=== PATIENT | male | born 1950 | race Hispanic/Latino ===

== ENCOUNTER 2017-01-02 10:09 | Emergency (ER) | payer MEDICARE, MEDICAID ==
--- NOTE | 2017-01-02 12:59 | RAD ---
SUPINE AP ABDOMINAL RADIOGRAPH: DATE: 01/02/17. HISTORY: Evaluate gastrostomy tube placement. FINDINGS: Contrast was injected through the gastrostomy tube and a portable AP abdominal image was obtained. A gastrostomy tube is noted in place. There is contrast seen within the fundus of the stomach with co ntrast seen superior to the level of the stomach probably related to a small amount of contrast in th e distal esophagus. No extravasation of contrast is visualized. The bowel gas pattern is overall no nspecific. There is a suggestion of a compression fracture involving the L2 vertebral body. Degener ative changes are seen in the lumbar spine. IMPRESSION: 1. Findings suggestive of a compression fracture of the L2 vertebral body. However, this is not wel l evaluated on the frontal projection. Views of the lumbar spine may be helpful for further evaluati on. 2. Gastrostomy tube noted in place with contrast seen in the stomach. No extravasation of contrast is visualized. There is a small amount of contrast in the distal esophagus. POS: [facility]
== END 2017-01-02 11:24 | disposition home or self-care (01) ==
LOC: ERS 10:09
DX: K94.23 Gastrostomy malfunction (principal); I10 Essential (primary) hypertension; F41.9 Anxiety disorder, unspecified; K74.60 Unspecified cirrhosis of liver; F17.210 Nicotine dependence, cigarettes, uncomplicated
CPT/HCPCS: 43760; 74000; B4087

== ENCOUNTER 2017-11-07 09:05 | Day surgery (SDC) | payer MEDICARE, MEDICAID ==
[2017-11-04 10:24] VITALS: BMI 24.1
[2017-11-07] MEDS ORDERED: PROPOFOL 200 MG/20 ML VIAL ONE (11:53)
[2017-11-07] MEDS ORDERED: Lidocaine 1% PF 5 ML VIAL ONE (11:53)
[2017-11-07] MEDS ORDERED: Ondansetron HCl/PF 4 MG/2 ML Vial ONE ×2 (11:53→13:06)
[2017-11-07] MEDS ORDERED: Triamcinolone 40 MG/ML VIAL ONE (12:02)
[2017-11-07] MEDS ORDERED: Midazolam HCl 2 mg/2 ml Vial ONE (12:15)
[2017-11-07] MEDS ORDERED: Sodium Chloride 0.9% 10 ML ONE (12:21)
[2017-11-07] MEDS ORDERED: Promethazine HCl 25 MG/ML VIAL ONE (13:35)
--- NOTE | 2017-11-07 14:00 | OP ---
DATE OF PROCEDURE: 11/07/2017 SURGEON: Dr. Darrius Grimm PROCEDURE: Esophagogastroduodenoscopy with balloon dilation of an esophageal stricture and submucosa l injection of steroid. PREOPERATIVE DIAGNOSIS: Esophageal stricture and dysphagia. OPERATIVE NOTE: Informed consent was obtained. The patient was sedated with total intravenous anest hesia. A bite block was placed. Of note, when he bent down on the bite block, an extremely loose an d rotten front tooth fell out with that. This was removed from his mouth. The endoscope was then pl aced into the distal esophagus where a very tight esophageal stricture was encountered. This had a b enign smooth appearance, but was only a millimeter or 2 in diameter. Triamcinolone, a total of 40 mg were injected 10 mg per quadrant for 4 quadrants around the stricture submucosally. The stricture w as then dilated with a balloon dilator to 12 mm and then 13.5 mm. There were appropriate deep tears with the dilation. The endoscope still could not renard the balloon through the stricture even after the dilation to 13.5 mm. The endoscope could not be passed through to the stomach. The gastrostomy tube was noted to be in place and was supple and left alone today. IMPRESSION: 1. Tight esophageal stricture dilated to 13.5 mm, which was still too tight to pass the scope throug h even after dilation. 2. Triamcinolone, a total of 40 mg were injected submucosally at the stricture site with 10 mg per q uadrant for 4 quadrants. 3. Otherwise normal proximal esophagus. The stricture was present at 35 cm. RECOMMENDATIONS: Repeat EGD in 2 weeks with balloon dilation of the stricture and again with steroid submucosal injection. The goal will be to try to get the stricture up to 15 mm at that time and com plete the exam of the stomach and duodenum and hopefully will be able to maintain patency of the stri cture with steroid injection. Again, he will need to continue proton pump inhibitor and again is adv ised to stop smoking.
[2017-11-07] MEDS ORDERED: Lidocaine 1% (PF) 30 ML VIAL ONE (14:23)
== END 2017-11-07 14:45 | disposition home or self-care (01) ==
LOC: SDC 09:05
PROVIDERS: ATTEND Internal Medicine Gastroenterology
PROC: 0D758ZZ Dilation of Esophagus, Via Natural or Artificial Opening Endoscopic (ICD-10-PCS; principal; 2017-11-07)
PROC: 3E0G8GC Introduction of Other Therapeutic Substance into Upper GI, Via Natural or Artificial Opening Endoscopic (ICD-10-PCS; 2017-11-07)
DX: K22.2 Esophageal obstruction (principal); R13.10 Dysphagia, unspecified; F17.210 Nicotine dependence, cigarettes, uncomplicated; Z79.899 Other long term (current) drug therapy; Z93.1 Gastrostomy status
CPT/HCPCS: 96374; J1644; J2001; J2250; J2405; J2550; J2704; J3301

== ENCOUNTER 2017-11-15 10:15 | Emergency (ER) | payer MEDICARE, MEDICAID ==
[2017-11-15 11:30] LABS: ALT (SGPT) 27 U/L (8-55); AST (SGOT) 39 U/L (5-34); Albumin 3.6 g/dL (3.4-4.8); Alkaline Phosphatase 128 U/L (40-150); Anion Gap 14 mmol/L (10-20); BUN (Urea Nitrogen) 39 mg/dL (8.4-25.7); Bilirubin, Total 0.4 mg/dL (0.2-1.2); Calc. Creatinine Clearance 0 mL/min (70-130); Calcium 9.3 mg/dL (7.8-10.44); Carbon Dioxide 34 mmol/L (23-31); Chloride 91 mmol/L (98-107); Estimated GFR-MDRD 52; Globulin 4.1 g/dL (2.4-3.5); Glucose 124 mg/dL (80-115); Protein, Total 7.7 g/dL (5.8-8.1); Sodium 136 mmol/L (136-145)
[2017-11-15 11:35] LABS: CKMB 2.5 ng/mL (0-6.6); Troponin I 0.022 ng/mL (< 0.028)
[2017-11-15 11:38] LABS: Potassium 2.9 mmol/L (3.5-5.1)
[2017-11-15 11:53] LABS: Band 23 % (5-11); Hemoglobin 13.9 g/dL (14.0-18.0); Lymphocytes 7 % (21-51); MDiff Complete? YES; Macrocytosis SLIGHT = 6-15 cells (100X) (0-5/hpf); Mean Corpuscular HGB CONC 33.6 g/dL (32.0-36.0); Mean Corpuscular Hemoglobin 33.5 pg (27.0-31.0); Mean Corpuscular Volume 99.8 fL (78.0-98.0); Mean Platelet Volume 9.3 fL (7.4-10.4); Monocytes 9 % (0-10); Neutrophil 60 % (42-75); Platelet Count 198 thou/uL (130-400); RBC Distribution Width 11.7 % (11.5-14.5); Reactive Lymphocytes 1 % (0-10); Red Blood Cell (RBC) Count 4.15 mill/uL (4.70-6.10); White Blood Cell (WBC) Count 9.6 thou/uL (4.8-10.8)
[2017-11-15] MEDS ORDERED: Potassium Chloride 20 MEQ TAB ONE (11:54)
[2017-11-15] MEDS ORDERED: Potassium Chloride 20 MEQ/100 ML PREMIX BAG ONE (11:54)
--- NOTE | 2017-11-15 12:41 | RAD ---
PORTABLE CHEST: HISTORY: Chest pain. COMPARISON: 04/19/2015 FINDINGS: Heart size and mediastinum are within normal limits. The lungs are clear of any infiltrative process . No acute bony findings. IMPRESSION: No active intrathoracic disease. POS: [facility]
[2017-11-15 14:23] LABS: Bilirubin Small (Negative); Blood, Urine Negative (Negative); Clarity CLEAR (Clear); Glucose, Urine (Dipstick) Negative (Negative); Leukocyte Trace (Negative); Nitrite Negative (Negative); Protein, Urine (Dipstick) 30 mg/dL (Neg-Trace); Specific Gravity, Urine 1.016 (1.002-1.036); pH, Urine 6.5 (5.0-9.0)
[2017-11-15 14:25] LABS: Bacteria/HPF None Seen HPF (None Seen); Pathc Cast-AUWi Flag 1.45 (0-2.49); Squamous Epithelial 0-3 HPF (0-3); WBC/HPF 0-3 HPF (0-3)
[2017-11-15 14:37] LABS: Hyaline Casts/LPF 4-6 HYALINE CAST LPF (0-3 Hyaline)
[2017-11-15 14:38] LABS: Transitional Epithelial NONE SEEN HPF (0-3)
== END 2017-11-15 16:00 | disposition home or self-care (01) ==
LOC: ERS 10:15
DX: K22.2 Esophageal obstruction (principal); R07.9 Chest pain, unspecified; R47.02 Dysphasia; I10 Essential (primary) hypertension; F41.9 Anxiety disorder, unspecified; F17.210 Nicotine dependence, cigarettes, uncomplicated; Z79.899 Other long term (current) drug therapy
CPT/HCPCS: 36415; 51701; 71045; 80053; 81003; 81015; 82553; 83735; 84484; 85025; 93005; 96361; 96365; 96366; J3480

== ENCOUNTER 2017-11-22 11:30 | Day surgery (SDC) | payer MEDICARE, MEDICAID ==
[2017-11-22] MEDS ORDERED: Triamcinolone 40 MG/ML VIAL ONE (13:16)
[2017-11-22] MEDS ORDERED: Promethazine HCl 25 MG/ML VIAL ONE (15:06)
[2017-11-22] MEDS ORDERED: Morphine 2 MG/ML SYRINGE ONE (15:20)
[2017-11-22] MEDS ORDERED: hydrALAZINE 20 MG/ML VIAL ONE (15:55)
[2017-11-22] MEDS ORDERED: Lidocaine 1% PF 5 ML VIAL ONE (16:20)
[2017-11-22] MEDS ORDERED: Ondansetron HCl/PF 4 MG/2 ML Vial ONE (16:20)
[2017-11-22] MEDS ORDERED: PROPOFOL 200 MG/20 ML VIAL ONE (16:20)
--- NOTE | 2017-11-22 21:10 | OP ---
DATE OF PROCEDURE: 11/22/2017 PROCEDURE: Esophagogastroduodenoscopy with biopsy, esophageal balloon dilation of esophageal strictu re, submucosal injection of steroid into the esophagus, and gastrostomy tube replacement. PREOPERATIVE DIAGNOSES: Dysphagia and esophageal stricture. OPERATIVE NOTE: Informed consent was obtained from the patient. He was sedated with total intraveno us anesthesia. The bite block was placed and the endoscope was advanced down to the second portion o f the duodenum without difficulty and retroflexion was performed in the stomach. The esophagus was m ore wide open compared to the previous procedure. The endoscope could be passed all the way through to the stomach without having to dilate the stricture. The esophagus was diffusely ulcerated and str ictured throughout the distal two-thirds of the esophagus. Biopsies were obtained. The esophagus ag ain was injected with 40 mL of triamcinolone in four different quadrants. The esophagus was dilated to 15 mm with a balloon dilator. Appropriate shallow tear was noted at the dilation site; however, t he esophagus really was only minimally dilated with the balloon. It was much more open than with pre vious exams. The stomach did have some slight food residue and a little bit of fluid in it, which wa s suctioned out. The old gastrostomy bumper was noted to be in place. The pylorus and first and sec ond portions were unremarkable except there was again some mild food residue in the first portion of the duodenum. The old gastrostomy balloon was deflated with a syringe. The balloon incompletely def lated and with the assistance of the scope, the rest of the fluid could be advanced, and it was then fully deflated. The old tube was removed and a new gastrostomy tube was placed through the old tube and the balloon inflated with 20 mL of sterile water. The external bumper was loosely placed. The s tomach was otherwise unremarkable. IMPRESSION: 1. Diffuse esophageal ulceration and stricturing, biopsied. This is of the distal two-thirds of the esophagus. The esophagus was much more open actually than with the previous procedure. The esophag us again was injected with steroids and dilated with a 15-mm balloon. 2. The stomach had some mild fluid and food residue. This is likely related to motility disorder wi th his stomach. He also had some food residue in the duodenum. He was noted to have a previous jossy luis-emptying scan that showed 78% emptying at 4 hours, which was delayed. RECOMMENDATIONS: 1. Continue Nexium 40 mg twice daily. 2. Follow up in GI clinic in 2 weeks. 3. Consider restarting the Reglan at this point. We will need to review his history regarding this to make sure he did not have any significant side effects with the Reglan. 4. Continue to await histopathology.
== END 2017-11-22 17:32 | disposition home or self-care (01) ==
LOC: SDC 11:30
PROVIDERS: ATTEND Internal Medicine Gastroenterology
PROC: 0D758ZZ Dilation of Esophagus, Via Natural or Artificial Opening Endoscopic (ICD-10-PCS; principal; 2017-11-22)
PROC: 3E0G8GC Introduction of Other Therapeutic Substance into Upper GI, Via Natural or Artificial Opening Endoscopic (ICD-10-PCS; 2017-11-22)
PROC: 0DH63UZ Insertion of Feeding Device into Stomach, Percutaneous Approach (ICD-10-PCS; 2017-11-22)
PROC: 0DB58ZX Excision of Esophagus, Via Natural or Artificial Opening Endoscopic, Diagnostic (ICD-10-PCS; 2017-11-22)
DX: K22.10 Ulcer of esophagus without bleeding (principal); K22.2 Esophageal obstruction; F17.210 Nicotine dependence, cigarettes, uncomplicated; Z79.899 Other long term (current) drug therapy
CPT/HCPCS: 88305; 88312; 88313; 96374; 96375; B4087; J0360; J2001; J2270; J2405; J2550; J2704; J3301

== ENCOUNTER 2018-01-04 12:11 | Day surgery (SDC) | payer MEDICARE, MEDICAID ==
[~2018-01-04 12:11] MED LIST: Lidocaine 1% PF 5 ML VIAL ONE; PROPOFOL 200 MG/20 ML VIAL ONE
[2018-01-04] MEDS ORDERED: Midazolam HCl 2 mg/2 ml Vial ONE (14:13)
[2018-01-04] MEDS ORDERED: Ondansetron PF 4 MG/2 ML Vial ONE (15:59)
[2018-01-04] MEDS ORDERED: Piperacillin/Tazobactam 3.375 GM in Sodium Chloride 0.9% 100 ML IVPB SCH (16:00)
[2018-01-04] MEDS ORDERED: Iopamidol 370 76% 50 ML VIAL FS ONE (16:47)
[2018-01-04 16:54] LABS: #Eosinphils 0.1 thou/uL (0.0-0.7); #Lymphocytes 1.6 thou/uL (1.20-3.40); #Monocytes 0.4 thou/uL (0.11-0.59); #Neutrophils 5.5 thou/uL (1.40-6.50); %Basophils 0.3 % (0.0-1.0); %Eosinophils 0.9 % (0.0-10.0); %Lymphocytes 20.8 % (21.0-51.0); %Monocytes 5.6 % (0.0-10.0); %Neutrophils 72.5 % (42.0-75.0); Hemoglobin 14.6 g/dL (14.0-18.0); Mean Corpuscular HGB CONC 34.2 g/dL (32.0-36.0); Mean Corpuscular Hemoglobin 34.4 pg (27.0-31.0); Mean Platelet Volume 9.1 fL (7.4-10.4); Platelet Count 225 thou/uL (130-400); RBC Distribution Width 12.2 % (11.5-14.5); Red Blood Cell (RBC) Count 4.24 mill/uL (4.70-6.10); White Blood Cell (WBC) Count 7.6 thou/uL (4.8-10.8)
[2018-01-04 17:01] LABS: PTT 31.2 SEC (22.9-36.1); Prothrombin Time 13.4 SEC (12.0-14.7)
--- NOTE | 2018-01-04 17:01 | CT ---
CT OF CHEST PERFORMED WITHOUT CONTRAST ENHANCEMENT: 01/04/18 HISTORY: Patient is status post EGD. There is concern for an esophageal perforation. Dr. Grimm placed a clip a t the area of concern. The lungs show biapical parenchymal scar. The lungs are otherwise clear of any infiltrative process. Some emphysematous type change is seen. Some parenchymal scarring in the lingula. No pulmonary nodule s or pleural effusions. The thoracic aorta shows atherosclerotic change. There are coronary calcifications. Patient was given some nonionic contrast to ingest and this does show oral contrast within the distal esophagus, the wall of which is thickened, but there is no signs of extravasation or contrast. There is no evidence of mediastinal air. Gastrostomy tube is present. The visualized liver parenchyma appe ars unremarkable. Right and left adrenal glands are normal in appearance. IMPRESSION: Thickened somewhat irregular appearance to the distal esophageal wall. I do not see any signs that wo uld suggest perforation. There is no mediastinal air. The findings were discussed with Dr. Grimm. POS: [facility]
[2018-01-04 17:10] LABS: ALT (SGPT) 12 U/L (8-55); AST (SGOT) 20 U/L (5-34); Albumin 4.2 g/dL (3.4-4.8); Alkaline Phosphatase 92 U/L (40-150); Anion Gap 17 mmol/L (10-20); BUN (Urea Nitrogen) 12 mg/dL (8.4-25.7); Bilirubin, Total 0.5 mg/dL (0.2-1.2); Calc. Creatinine Clearance 0 mL/min (70-130); Calcium 9.6 mg/dL (7.8-10.44); Carbon Dioxide 25 mmol/L (23-31); Chloride 101 mmol/L (98-107); Estimated GFR-MDRD Greater than 90; Globulin 3.8 g/dL (2.4-3.5); Glucose 116 mg/dL (80-115); Potassium 3.6 mmol/L (3.5-5.1); Sodium 139 mmol/L (136-145)
[2018-01-04] MEDS ORDERED: hydrALAZINE 20 MG/ML VIAL ONE (17:40)
--- NOTE | 2018-01-05 00:27 | OP ---
DATE OF PROCEDURE: 01/04/2018 PROCEDURE PERFORMED: Esophagogastroduodenoscopy with balloon dilation of esophageal stricture. PREOPERATIVE DIAGNOSIS: Continued dysphagia. INDICATIONS: He has to spit his saliva out throughout the day. He has been taking the Nexium twice daily through his gastrostomy tube. He was started on Reglan about a week ago, and he has not noticed significant improvement since starting this medication. He underwent esophageal dilation with injection of steroid to the dilation site on 11/07/2017, and then followup dilation on 11/22/2017 again with injection of steroid. The initial dilation was to 13.5 mm. The subsequent dilation was to 15 mm with a balloon dilator. Followup endoscopy for the chronic stricture was performed today. DESCRIPTION OF PROCEDURE: Informed consent was obtained from the patient. He was sedated with total intravenous anesthesia. A bite block was placed and the endoscope was advanced to the distal esophagus, where again a very tight esophageal stricture was encountered, this had tightened up significantly from the previous exam. A balloon dilator was placed through the stricture and dilated to 12 mm. There was shallow mucosal tear with dilation. Dilation was performed at 13.5 mm. Deeper mucosal tear was seen. In one segment, there was more muscular tear with a possible hole in the distal esophagus concerning for a small perforation. The endoscope was advanced to the stomach, which appeared normal including retroflexed views. The bumper from the gastrostomy tube was noted be in place. The pylorus and first and second portions of the duodenum were unremarkable. IMPRESSION: 1. Tight distal esophageal stricture dilated to 13.5 mm with a balloon dilator. There was a deep tear at one point within the dilation site with a possible small hole identified. A clip was placed over this defect, however, there was poor gripping of the chronically scarred tissue in this area, and I would expect that if there is an actual perforation, that this would not be adequate for treatment. 2. Otherwise normal EGD with gastrostomy tube noted to be in place in the body of the stomach. RECOMMENDATIONS: 1. We will request a gastrografin swallow. If a perforation is confirmed, then he will be started on antibiotics and transferred to a facility where thoracic surgery support for this complication is available. 2. If there is no perforation, then we will continue with medical therapy with proton pump inhibitor twice daily and continue trial of metoclopramide for the gastroparesis. Job ID: [id number]
--- NOTE | 2018-01-05 01:20 | HP ---
CHIEF COMPLAINT: Trouble swallowing. HISTORY OF PRESENT ILLNESS: Mr. Zarate is a 67-year-old man, who underwent upper endoscopy today for chronic esophageal stricture. I dilated a tight distal esophageal stricture to 13.5 mm with the balloon dilator. There was concern for a defect at the dilation site for possible perforation. The patient did have some chest pain and vomiting after the procedure. A CT scan of the chest was performed and he did swallow contrast with that. The contrast went on through the esophagus to the stomach. The CT scan showed no signs of perforation and no free air. Given the concern still for risk for perforation, he is being placed on observation status. He has had a chronic esophageal stricture. I first started seeing him back in 2011, at which point he had presented to the hospital with nausea and vomiting and history of esophageal stricture dilated elsewhere. I performed an endoscopy that showed again a tight esophageal stricture that was too tight to pass the endoscope through along with severe erosive esophagitis. He subsequently underwent monthly dilations after that over the years and we were able to dilate up to 15 mm with balloon, however, the stricture would typically tighten right back down to 2 mm opening. He has undergone at least 27 upper endoscopies with dilations and sometimes with biopsies at this institution between 2011 and now. He has undergone gastric emptying scan previously that showed reduced gastric emptying time at 78%, emptying at 4 hours. He was given a trial of Reglan in the past, however, it is unsure if this has helped or not. He ultimately underwent PEG tube placement in July of 2012 and he has maintained the gastrostomy tube since then for his primary source for nutrition. He was not seen by us between November 2016 up until end of October of 2017, at which point he again presented with similar ongoing symptoms. He underwent endoscopy on November 07 with balloon dilation and steroid injection to the stricture. This was repeated on November 22, 2017 with balloon dilation and steroid injection to the stricture. He was started on metoclopramide again a week ago without obvious help since then. He has continued on Nexium granules twice daily through his gastrostomy tube. He has been encouraged to quit smoking in the past due to the nonhealing chronic fibrotic stricture, but he has continued to smoke. He has lost 5 pounds over the last month. He continually has to spit out the saliva and will fill up a trash can full of saliva over several hours at home. PAST MEDICAL HISTORY: 1. Chronic esophageal stricture. 2. Gastroparesis. 3. History of hepatitis C antibody positive, however, the RNA level is negative and this confirms that he does not have chronic hepatitis C. He has had no signs of cirrhosis otherwise. 4. Chronic opioid dependence. PAST SURGICAL HISTORY: He has had numerous upper endoscopies. He had colonoscopy back in July of 2011, which revealed a tubulovillous adenoma. I do not believe he has had a surveillance colonoscopy since then. He has had knee surgery and ankle surgery. FAMILY HISTORY: Negative for GI malignancy. SOCIAL HISTORY: Continues to smoke. He quit drinking a few years ago. He has a past history of heroin use, but not recently. ALLERGIES: NO KNOWN DRUG ALLERGIES. MEDICATIONS: Include; 1. Nexium 40 mg once packet twice daily per G-tube. 2. Metoclopramide 5 mg liquid per tube before meals and at bedtime four times daily. 3. Alprazolam 1.5 mg twice daily. 4. Mirtazapine 45 mg daily. 5. Ambien 5 mg nightly. 6. Suboxone 8-2 mg two times daily. 7. Amlodipine with valsartan 10-320 mg one tablet daily. REVIEW OF SYSTEMS: Negative x10 systems reviewed except as stated in the history of present illness. PHYSICAL EXAMINATION: VITAL SIGNS: His blood pressures run as high as in the 190s. GENERAL: He is in no acute distress. He does spit out his saliva. He is awake and responsive. HEENT: His eyes have no scleral icterus. Oropharynx has poor dentition. No cervical or supraclavicular lymphadenopathy. LUNGS: Clear to auscultation bilaterally. HEART: Regular rate and rhythm without murmur. ABDOMEN: Soft, nontender, and nondistended. Bowel sounds are present. EXTREMITIES: No lower extremity edema. NEUROLOGIC: Cranial nerves are grossly intact. IMPRESSION: 1. Chronic fibrotic distal esophageal stricture. Repeated biopsies have been benign. Balloon dilation today was performed at 13.5 mm. Previously just one month ago, we were able to dilate to 15 mm, however, dilation today to the smaller size shows a concerning deep tear and he is being monitoring for perforation. CT scan of the chest with swallowed contrast shows no evidence of perforation. 2. Idiopathic gastroparesis exacerbated by opioids. 3. Tobacco abuse. 4. Chronic malnutrition with symptoms questionable compliance with his gastrostomy tube feeds. His most recent albumin back in November was actually normal. 5. History of tubulovillous adenoma, removed in 2011. RECOMMENDATIONS: 1. Given that the CT scan showed no perforation, we will monitor him for a while longer in day stay. If he continues to have discomfort in his chest or trouble swallowing or other signs of complications, we will followthrough with admission and place him on empiric antibiotics and monitor for further complications. 2. If he improves over the next little while, then he could potentially be discharged home and continue with the proton-pump inhibitor twice daily per gastrostomy tube and continue metoclopramide 5 mg four times daily before meals and at bedtime. 3. We will check his labs today including renal function and liver tests, albumin, white blood cell count and hemoglobin. 4. He will eventually need to undergo surveillance colonoscopy, however, this could be done as an outpatient in the future with subsequent followup endoscopies. If he does not have a surgical complication with today's procedure, he will still require serial dilations to the stricture. Job ID: [id number]
== END 2018-01-04 18:48 | disposition home or self-care (01) ==
LOC: SDC 12:11
PROVIDERS: ATTEND Internal Medicine Gastroenterology
PROC: 0D758ZZ Dilation of Esophagus, Via Natural or Artificial Opening Endoscopic (ICD-10-PCS; principal; 2018-01-04)
DX: K22.2 Esophageal obstruction (principal); K22.8 Other specified diseases of esophagus; K31.84 Gastroparesis; Z93.1 Gastrostomy status; F17.200 Nicotine dependence, unspecified, uncomplicated; E46 Unspecified protein-calorie malnutrition; Z87.19 Personal history of other diseases of the digestive system; Z98.890 Other specified postprocedural states
CPT/HCPCS: 36415; 71250; 80053; 85025; 85610; 85730; 96374; 96375; J0360; J2001; J2250; J2405; J2543; J2704; J7050

== ENCOUNTER 2018-03-10 09:51 | Inpatient (IN) | payer MEDICAID, MEDICARE ==
--- NOTE | 2018-03-10 11:11 | RAD ---
CHEST 1 VIEW: HISTORY: Pneumonia. COMPARISON: CT From 01/04/2018. FINDINGS: Cardiac silhouette and pulmonary vasculature are unremarkable. Mediastinum is midline. No confluent airspace consolidation. Lung apices are incompletely imaged. IMPRESSION: No active cardiopulmonary abnormalities are demonstrated. POS: [facility]
[2018-03-10 11:21] LABS: #Lymphocytes 1.2 thou/uL (1.20-3.40); #Monocytes 1.1 thou/uL (0.11-0.59); #Neutrophils 7.7 thou/uL (1.40-6.50); %Basophils 0.1 % (0.0-1.0); %Eosinophils 0.2 % (0.0-10.0); %Lymphocytes 11.8 % (21.0-51.0); %Monocytes 10.7 % (0.0-10.0); %Neutrophils 77.2 % (42.0-75.0); Hemoglobin 14.9 g/dL (14.0-18.0); Mean Corpuscular HGB CONC 31.8 g/dL (32.0-36.0); Mean Corpuscular Hemoglobin 32.3 pg (27.0-31.0); Mean Platelet Volume 7.6 fL (7.4-10.4); Platelet Count 301 thou/uL (130-400); RBC Distribution Width 12.6 % (11.5-14.5); Red Blood Cell (RBC) Count 4.62 mill/uL (4.70-6.10)
[2018-03-10 11:48] LABS: AST (SGOT) 21 U/L (5-34); Albumin 3.6 g/dL (3.4-4.8); Alkaline Phosphatase 72 U/L (40-150); Anion Gap 17 mmol/L (10-20); BUN (Urea Nitrogen) 23 mg/dL (8.4-25.7); Bilirubin, Total 0.6 mg/dL (0.2-1.2); Calc. Creatinine Clearance 0 mL/min (70-130); Calcium 9.1 mg/dL (7.8-10.44); Carbon Dioxide 20 mmol/L (23-31); Chloride 103 mmol/L (98-107); Estimated GFR-MDRD 67; Globulin 3.4 g/dL (2.4-3.5); Glucose 112 mg/dL (80-115); Sodium 137 mmol/L (136-145)
[2018-03-10 12:04] LABS: ALT (SGPT) 9 U/L (8-55); CK (CPK) 55 U/L (30-200); Lipase 18 U/L (8-78)
[2018-03-10 12:10] LABS: CKMB 5.4 ng/mL (0-6.6)
--- NOTE | 2018-03-10 13:33 | CT ---
ABDOMEN AND PELVIC CT WITH IV CONTRAST: COMPARISON: 06/23/2011. CLINICAL HISTORY: Failure to thrive. Abdominal pain. FINDINGS: There is abnormal interstitial reticulonodular opacification of the lung bases, left greater than rig ht. Gastrostomy is present from a left ventral abdominal percutaneous approach. There is moderate d istention of the gallbladder and slight prominence of the biliary ductal system. No focal hepatic le pablo evident. The spleen is unremarkable. Vascular calcifications are seen within the kidneys bilat erally. Small parenchymal hypoattenuating foci of each kidney are present, too small to definitively characterize. There is asymmetric atrophy of the right kidney. There is a large volume of retained fecal material throughout the colon. Diffuse vascular disease. There is no free air. There is patricia dence of hiatal hernia and mild wall prominence of the imaged distal esophagus. Moderate distention of the unopacified urinary bladder is present. No adrenal mass or peripancreatic inflammation. Ther e is likely chronic end plate deformity of L2. IMPRESSION: 1. Multifocal abnormal bilateral interstitial reticulonodular opacities as well as ground-glass opac ity of the bilateral lung bases. Findings favor an atypical infection. Recommend clinical correlati on as well as radiographic imaging, as followup for continued assessment. 2. Distended gallbladder and prominence of the biliary ductal system. Findings may be further asses sed with dedicated gallbladder ultrasound. 3. Constipation. The bowel is limited in assessment by the presence of enteric contrast. 4. Heterogeneous kidneys with multifocal vascular calcification. There is also atrophy of the right kidney. Correlate for patient's renal function and, as necessary, nephrology followup may be obtain ed. POS: [facility]
[2018-03-10] MEDS ORDERED: ISOVUE-370 76%-LOCM 1 ML ONE (14:50)
--- NOTE | 2018-03-10 15:05 | ULT ---
RIGHT UPPER QUADRANT ULTRASOUND: Date: 03/10/18 INDICATION: Abdominal pain. FINDINGS: The gallbladder is distended. There is echogenic sludge noted within the gallbladder lumen. Gallbladd er wall does not appear significantly thickened or edematous. Common bile duct is dilated, measured at 6.0 mm. There is evidence of intrahepatic ductal dilatation. Liver is heterogeneous. Pancreas is obscured. Right kidney is imaged and appears unremarkable. Technologist describes a negative Albert's sign. IMPRESSION: Distended gallbladder with echogenic sludge. Intra and extrahepatic biliary duct dilatation. Heteroge neous liver. Consider MRCP to further evaluate liver, pancreas, and bile ducts. POS: [facility]
[2018-03-10 17:27] VITALS: BMI 16.2
[2018-03-10 17:33] LABS: CKMB 6.8 ng/mL (0-6.6)
[2018-03-10] MEDS ORDERED: Ondansetron ODT 4 MG TAB SL PRN (19:28)
[2018-03-10] MEDS ORDERED: Acetaminophen 325 MG TAB PO PRN (19:28)
[2018-03-10] MEDS ORDERED: Ondansetron PF 4 MG/2 ML Vial IVP PRN (19:28)
[2018-03-10] MEDS ORDERED: Sodium Chloride 0.9% 1,000 ML IV SCH (19:28)
[2018-03-10] MEDS ORDERED: Lorazepam 2 MG/ML VIAL SLOW IVP PRN (19:38)
[2018-03-11] MEDS ORDERED: Fentanyl 100 MCG/2 ML VIAL SLOW IVP PRN (03:32)
[2018-03-11] MEDS ORDERED: Fentanyl 100 MCG/2 ML VIAL SLOW IVP SCH (03:45)
[2018-03-11] MEDS ORDERED: Pantoprazole 40 MG VIAL IVP SCH (09:00)
--- NOTE | 2018-03-11 10:02 | HP ---
CHIEF COMPLAINT: Abdominal pain. HISTORY: The patient is a 67-year-old male, who has a longstanding severe esophageal stricture. He had a PEG placed for feeding. He was doing well, tolerating up to 4 cans per day until the last month. He states whenever he tries to put any fluid through his PEG tube, it creates severe pain around the PEG tube, so he has not been eating. He has lost 16 pounds. He normally sees Dr. Grimm in GI. He had a small bowel movement yesterday. His last esophageal dilatation was about a month ago. PAST MEDICAL HISTORY: Significant for history of heroin addiction, hepatitis C. PAST SURGICAL HISTORY: He has had foot surgery and PEG surgery. MEDICATIONS: Include Megace, Transderm-Scop, Trulance, metoclopramide, Suboxone, vitamin D, alprazolam, mirtazapine, zolpidem and Chantix. ALLERGIES: HE HAS NO KNOWN DRUG ALLERGIES. SOCIAL HISTORY: He is disabled. He was a heavy smoker. He is down to one cigarette per day. No alcohol. FAMILY HISTORY: Heart disease. PHYSICAL EXAMINATION: VITAL SIGNS: Temperature 99, pulse 103, blood pressure 120/80. GENERAL: He is a cachectic male. He has difficulty speaking because he is regurgitating his saliva. HEENT: Otherwise, unremarkable. No jaundice. LUNGS: Clear. ABDOMEN: He has a PEG in the left upper quadrant. His abdomen is otherwise soft, nondistended, and nontender. Very thin. EXTREMITIES: Extremely thin. LABORATORY DATA: His white count is 10, H and H 14 and 46, platelet count 301. His electrolytes, liver function tests are normal. His potassium low is at 3, CO2 of 20. He had an abdominal CT which showed a distended gallbladder, distended intra and extrahepatic biliary tree, large volume of retained fecal material, hiatal hernia, wall prominence of the distal esophagus. He had an ultrasound that showed again some sludge and biliary dilatation. Negative Albert's sign. ASSESSMENT: Cachexia due to esophageal stricture with pain at PEG site with any use. The gallbladder distention is probably related to starvation. I do not feel that he is a candidate at this time for any kind of laparoscopic cholecystectomy. PLAN: I recommend a tube study to make sure that the PEG tube is positioned properly and GI evaluation. Job ID: [id number]
[2018-03-11] MEDS: Lorazepam 2 MG/ML VIAL SLOW IVP SCH ×3 (10:28→20:59)
[2018-03-11] MEDS: Sodium Chloride 0.9% 1,000 ML IV SCH ×2 (10:29→16:42)
[2018-03-11] MEDS: Nicotine 14 MG PATCH TOP SCH (10:29)
--- NOTE | 2018-03-11 11:28 | MRI ---
MRI OF THE ABDOMEN WITHOUT CONTRAST: Date: 03/11/18 INDICATION: History of abdominal pain, nausea, and vomiting. 16 lb. weight loss. PEG tube placement. COMPARISON: Right upper quadrant ultrasound dated 03/10/18. CT abdomen/pelvis dated 03/10/18. FINDINGS: As seen on the comparison examination, is moderate distention of the gallbladder without intraluminal stones or sludge. There is also intrahepatic and extrahepatic biliary dilatation with the common crys e duct measuring up to 10.6 mm. There is moderate intrahepatic biliary ductal dilatation. No main lozano creatic ductal dilatation is noted. Common bile duct is dilated up to the level of the ampulla. No vi sible intraluminal stones or sludge is evident. No definite overt pancreatic head mass or ampullary m ass is evident; however, an ampullary lesion cannot be entirely excluded. A small amount of debris or tiny stone at the level of the ampulla cannot be entirely excluded. There is no secondary sign to east ggest presence of pancreatitis. No definite focal hepatic lesion is evident. There is a PEG tube cath eter entering into the gastric body. Adrenal glands and kidneys appear within normal limits. There ar e bilateral lower lobe opacities which may reflect pneumonia. This is better seen on the CT examinati on. No veronica free fluid is evident. IMPRESSION: 1. Moderate gallbladder distention with moderate intrahepatic and extrahepatic biliary ductal dilata tion without evidence of visible intraluminal stone. An ampullary lesion or small stone at the level of the ampulla cannot be entirely excluded. Recommend consideration for an ERCP. 2. PEG catheter. 3. Bibasilar patchy opacities suspicious for pneumonia. POS: [facility]
--- NOTE | 2018-03-11 11:36 | RAD ---
KUB: Date: 03/11/18 HISTORY: PEG tube pain. FINDINGS: This shows contrast being injected into a PEG tube. The tube is in the fundus region of the stomach. There is reflux into the distal esophagus. There are no signs of extravasation. IMPRESSION: PEG tube within the fundus region of the stomach. No extravasation. POS: [facility]
--- NOTE | 2018-03-11 16:37 | CON ---
DATE OF CONSULTATION: 03/11/2018 REASON FOR CONSULTATION: Abdominal pain with PEG feeding. HISTORY OF PRESENT ILLNESS: Mr. Zarate is a 67-year-old, who has had chronic issues with esophageal dysphagia and stricturing and gastroparesis, which has been felt to possibly be related to his chronic narcotic pain medicines. He has been seen by Dr. Yung in the past. He has a PEG in place now and apparently the past several weeks he has not been able to eat. He cannot feed through his tube feed. He will feel very full and have to stop feeding. His son estimates that he has lost about 10 pounds. Apparently, he had been at [facility] recently. He had imaging and he was told that maybe he had pneumonia, but he has had no coughing, shortness of breath or fever according to the son. Here, he was evaluated in the emergency room and had several studies on the day of admission. Yesterday, he had a white count of 10, hemoglobin of 14, MCV 102, and platelet count of 301. He had a sodium of 137, potassium of 3, chloride of 103, bicarb of 20, BUN and creatinine of 23 and 1.11. Normal liver function tests. Alkaline phosphatase 72. Lipase of 18. Imaging studies, he had a CAT scan first reported a multifocal reticulonodular opacities and ground-glass changes in the lung base. A distended gallbladder was seen as well as a prominent biliary ductal system, constipation, and atrophy of the right kidney. An ultrasound was performed that showed a dilated gallbladder and intra and extrahepatic ductal dilatation. The duct was 6 mm they said. An MRCP was then performed, which showed moderate gallbladder distention with moderate intra and extrahepatic ductal dilatation without evidence of stones. Radiologist considered about ampullary mass or small stones. Presently, the patient is resting comfortably in bed. The nurses note he has had no distress or vomiting since being admitted. PAST MEDICAL HISTORY: 1. Chronic reflux and stricture. It was felt to be multifactorial and related to the gastroparesis from chronic narcotics and smoking. He has had multiple dilatations in the past. PPI treatment without much benefit. 2. Gastroparesis. This is likely narcotic-induced. 3. History of hepatitis C positive and hep C RNA negative. 4. Chronic opioid dependence. PAST SURGICAL HISTORY: Multiple EGDs and dilatations, PEG tube placed in the past, and colonoscopy with polypectomy in 2012. SOCIAL HISTORY: The patient continues to smoke and does not drink. He uses chronic pain medications. ALLERGIES: NONE KNOWN. MEDICATIONS: 1. Megace. 2. Scopolamine patch. 3. Trulance. 4. Raglan. 5. Suboxone. 6. Vitamin D. 7. Mirtazapine. 8. Zolpidem. 9. Chantix. Medications here, 1. Fentanyl q.4 hours. 2. Ativan. 3. Nicoderm patch. 4. Protonix once a day. 5. Normal saline 125 an hour. PAST SURGERIES: She had a PEG placement. PHYSICAL EXAMINATION: GENERAL: The patient is resting comfortably. He is frail and thin. He does not talk. His son gives all the history. He complains of pain when he eats. VITAL SIGNS: T-max 99.8 to 99, pulse is 103 to 99, and blood pressure 149/83. Reviewing his films, the PEG tube is in adequate position. The stomach, there was no sign of leak on the CAT scan or abscess or infection. The PEG is high up in the stomach. It may be that when there is feeding, it stays the PEG may prevent it from traversing farther. In any event, there is reflux on a recent PEG tube study on today up in the esophagus. There is no evidence of extravasation. The PEG is in the proper place. The CAT scan films and MRIs were reviewed as well. There is mild prominence of the intrahepatic ducts. There is a dilated gallbladder and there is no evidence of biliary obstruction with mass or stones. I have reviewed the patient's abdominal films. He has a J-shaped stomach with the PEG tube in the proximal fundus, which actually is directed upwards at the cardia and GE junction, and this may be the reason he tends to reflux more the feedings, but reviewing his CAT scan, I do not think that a PEG can be placed further down in the antrum due to the shape of the stomach. RECOMMENDATIONS: 1. EGD tomorrow to look for interval abnormalities of the ampulla that would cause the bile duct to be dilated, although I suspect most likely given the Suboxone and effect on the GI tract with probably sphincter of Oddi spasm and compensatory dilatation of the biliary tree. If that is normal, it may be reasonable to get a HIDA scan and make sure it does not cause acalculous cholecystitis as the reason for some of his abdominal pain with eating. 2. We will perform the EGD as well to evaluate the PEG and make sure some of this causing some obstruction. It may need to be removed. Unfortunately, trying to place a PEG into the jejunum with the jejunal extension is fraught with proximal migration and is probably not a viable option. 3. We will increase the Protonix to b.i.d. 4. With low-grade fever and negative imaging studies of the abdomen and findings in the chest, we would consider possibility of chronic aspiration pneumonia. 5. With regard to his debilitated intestinal motility, the Reglan is not going to probably fix everything and it may be reasonable to start him on Movantik or one of the other new receptor blockers if he is going to be on chronic narcotics, although the best thing for this patient would be to get weaned off chronic narcotic medications. His gut will likely not ever function normal while on them. 6. The risks, benefits, and possible complications of endoscopy were explained to the patient's son, and we will proceed with that tomorrow. Job ID: [id number]
[2018-03-11] MEDS: Fentanyl 100 MCG/2 ML VIAL SLOW IVP PRN (16:39)
[2018-03-11] MEDS ORDERED: GASTROGRAFIN 30 ML BOT ONE (16:39)
--- NOTE | 2018-03-11 17:17 | HP ---
CHIEF COMPLAINT: Abdominal pain. HISTORY OF PRESENT ILLNESS: The patient is a 67-year-old male with a long history of esophageal stricture, for which he has had a tube placed. He was doing well until about 2 weeks ago when he began to have pain at the PEG site. He was hurt whenever the PEG site was used, so that he quit feeding himself and over the last 2 weeks, he has lost 16 pounds. He also, when you ask him to show where he is tender, will put his hand up on the right upper quadrant and he is placed in the hospital for further evaluation. His CT scan done at the time of admitting showed gallbladder enlargement and sludge. PAST MEDICAL HISTORY: Significant for heroin addiction, hepatitis C, esophageal stricture, and COPD. He has had cirrhosis and history of hypertension. He has also had ulcers in his throat. He suffers from chronic constipation and generalized anxiety disorder as well as depression and insomnia as well as tobacco dependence. PAST SURGICAL HISTORY: Includes the aforementioned placement of a PEG, multiple dilatations of his esophagus for the stricture, bilateral foot surgery. PSYCHIATRIC HISTORY: Significant for the aforementioned anxiety and depression. SOCIAL HISTORY: He is . Continues to smoke daily. Quit drinking 8 years ago and is a former heroin abuser, who has been on Suboxone and sober for the last 3 years. ALLERGIES: HE HAS NO KNOWN DRUG ALLERGIES. MEDICATIONS: His medications on admission include; 1. Ambien 10 mg at bedtime. 2. Mirtazapine 45 mg daily. 3. Chantix 1 mg b.i.d. 4. Alprazolam 1 mg b.i.d. 5. Trulance 3 mg once a day. 6. Reglan 5 mg q.i.d. 7. Suboxone 8/2 one p.o. daily. REVIEW OF SYSTEMS: GENERAL: He is weak, cachectic, but denies fever or chills. He has had significant weight loss. HEENT: No drainage from eyes, ears, nose, or pharynx. CHEST: Denies shortness of breath or coughing. CARDIOVASCULAR: Denies palpitations or chest pain. GASTROINTESTINAL: Reports abdominal pain and chronic constipation. No nausea, vomiting, or diarrhea. His pain is located at the PEG site and he puts his hand up in the right upper quadrant. GENITOURINARY: Denies blood in urine or stool, or painful urination. MUSCULOSKELETAL: Complains of generalized weakness with muscular atrophy. No swollen joints or redness. SKIN: With poor turgor. No acute rashes or lesions. NEUROLOGICAL: No trouble with confusion or areas of anesthesia or paresthesia. PSYCHIATRIC: Denies emotional lability or hallucinations, but suffers of chronic anxiety and depression. PHYSICAL EXAMINATION: At the time of admission, VITAL SIGNS: Blood pressure is 125/77, pulse 100, respirations 20, temperature 98.6, and O2 saturation 95% on room air. GENERAL: This is a cachectic [place] male, alert and cooperative. HEENT: Temporal wasting and sunken eyes are noted. Atraumatic. Pupils with diminished reactivity to light. Arcus senilis bilaterally. Pharynx dry. NECK: Supple. CHEST: With diminished distant breath sounds. HEART: Regular rate and rhythm. ABDOMEN: Scaphoid and tender at the left upper PEG site as well as in the right upper quadrant Albert's sign. No hepatosplenomegaly or ascites. GENITOURINARY: Deferred. EXTREMITIES: Without clubbing, cyanosis, or edema. Muscular wasting in all four extremities was noted. Range of motion is normal. SKIN: With poor turgor in thinning. NEUROLOGIC: Cranial nerves are intact. Sensory exam is grossly normal. Mental status is clear, so far anxiety. Unable to test gait and cerebral function at this time. LABORATORY DATA: The lab work on admission showed WBCs 10, hemoglobin 14.9, and hematocrit 46.9 with platelets at 301. The sodium is 137, potassium 3.0, chloride 103, CO2 of 20, BUN is 23, and creatinine 1.1. Liver functions unremarkable. CK-MB elevated slightly at 6.8; troponin indeterminate, but elevated. Lipase 18. UA is pending. IMAGING DATA: Chest x-ray unremarkable. CT shows bilateral lower lobe infiltrates and sludge in the gallbladder as well as enlargement of the gallbladder. The sludge was confirmed by ultrasound. ASSESSMENT: 1. Percutaneous endoscopic gastrostomy tube site pain. 2. Probable cholecystitis with cholelithiasis. 3. Bilateral pulmonary nodules, etiology undetermined. 4. Failure to thrive. 5. History of recurrent esophageal stricture. 6. Chronic obstructive pulmonary disease. PLAN: 1. Surgical consultation has been obtained and will put any intervention on the back burner. 2. GI consultation to further assess PEG site placement and function. 3. Pulmonary consultation prior to discharge to evaluate bilateral pulmonary nodules. 4. Gradual supplementation to resume regular diet once pain has been managed and source of pain was resolved. Job ID: [id number]
[2018-03-11] MEDS: Pantoprazole 40 MG VIAL IVP SCH (20:59)
[2018-03-12] MEDS: Sodium Chloride 0.9% 1,000 ML IV SCH ×3 (01:00→16:34)
[2018-03-12] MEDS: Fentanyl 100 MCG/2 ML VIAL SLOW IVP PRN (04:39)
[2018-03-12] MEDS: Pantoprazole 40 MG VIAL IVP SCH ×2 (07:56→20:46)
[2018-03-12] MEDS: Nicotine 14 MG PATCH TOP SCH (07:58)
[2018-03-12] MEDS: Lorazepam 2 MG/ML VIAL SLOW IVP SCH ×3 (07:58→20:47)
[2018-03-12] MEDS ORDERED: KETAMINE 100 MG/ML (5ML VIAL) ONE (09:26)
--- NOTE | 2018-03-12 11:57 | OP ---
DATE OF PROCEDURE: 03/12/2018 PREPROCEDURE DIAGNOSES: 1. History of epigastric pain with every feed and vomiting after feeding. 2. CAT scan showing the balloon on his feeding tube to be very proximal in the stomach. 3. Tube check with fluoroscopy and contrast showed the PEG tube to be in the lumen of the stomach, but the injection of the contrast seems to stand the top of the stomach and goes straight up the esophagus. 4. Chronic narcotic use with chronic constipation. 5. Distended gallbladder, prominent biliary tree, likely related to narcotics and sphincter of Oddi spasm. The patient has normal liver function tests. No evidence of obstruction of the biliary tree. POSTPROCEDURE DIAGNOSES: 1. Stricture in distal esophagus smooth, consistent with a prior history of esophageal stricture from reflux, dilated to passage of scope. 2. The PEG tube balloon is in the proximal stomach and it is pointing right back at the GE junction. This is notable from the second you entered the stomach with the scope. On retroflexion, there was no evidence of paraesophageal hernia or volvulus. With advancing the scope beyond the balloon, the stomach seems to revert to a more normal position and the PEG tube is in the distal part of the body of the stomach almost near the antrum. This led me to believe that possibly the PEG tube bumper being loose let the PEG tube slip into the stomach and let the stomach take a high-riding position, which has probably been the reason for his symptoms in the last two weeks. The PEG tube was then changed and the tape was used to affix the bumper up against the tube so that it cannot migrate into the stomach and let the anterior balloon and PEG in the similar position that they had. 3. Otherwise normal stomach and duodenum. RECOMMENDATIONS: 1. Continue Protonix. 2. Start tube feeds. 3. If the patient continues to have abdominal pain, the stomach has been placed in proper position with respect to the tube feed, it would be reasonable to get a HIDA scan. 4. The patient should be on a bowel regimen since he is on Suboxone regularly as he is on a severe constipation, something like Movantik would be reasonable. If he can't afford that, then MiraLAX and Senokot would be reasonable. ANESTHESIA: TIVA. PROCEDURE IN DETAIL: The patient was informed of the risks, benefits, and possible complications of endoscopy including perforation, reaction to medication, and aspiration. Informed consent was obtained. The patient was brought to the endoscopy suite, where he was sedated in gradual fashion. One he was comfortable, a bite block was placed into his oropharynx. The endoscope was advanced to the esophagus, the distal esophagus. There was a stricture, it was difficult to pass the scope. We were able to dilate the stricture with minimal resistance. On entering the stomach at about 40 cm right away there, you can see the balloon on the placement of PEG tube and the lumen of the PEG tube was pointing straight up at the opening of the esophagus into the stomach. Retroflexed views with no evidence of paraesophageal hernia. There was no twisting of the mucosa. It was difficult to perform as this is a J-shaped stomach or just some type of migration of the PEG tube. The PEG tube was pulled back and the stomach reverted to its normal position. The scope was advanced beyond this and into the pylorus and the duodenum which was normal. The ampulla appeared normal. There was bile in the duodenum. There was no evidence of ampullary mass or obstruction. Retroflexed views then showed the PEG to be in the normal position. I think what is happening is the PEG tube bumper was loose and was letting the PEG tube slight further into the stomach and let it migrated up in the proximal stomach facing upward and this was in fact occluding the proximal stomach filling it with tube feeds and then he had refluxed it. Now that we changed the tube, it should not pull back like that and I think he will do better. Job ID: [id number]
[2018-03-12] MEDS ORDERED: PROPOFOL 200 MG/20 ML VIAL ONE (14:28)
[2018-03-13] MEDS: Sodium Chloride 0.9% 1,000 ML IV SCH ×2 (02:02→09:30)
[2018-03-13] MEDS: Fentanyl 100 MCG/2 ML VIAL SLOW IVP PRN (03:37)
[2018-03-13] MEDS ORDERED: Fentanyl 100 MCG/2 ML VIAL SLOW IVP PRN (09:03)
[2018-03-13] MEDS ORDERED: Senokot 8.6 MG TAB PER TUBE SCH ×2 (09:15→21:00)
[2018-03-13] MEDS: Pantoprazole 40 MG VIAL IVP SCH ×2 (10:04→20:01)
[2018-03-13] MEDS: Lorazepam 2 MG/ML VIAL SLOW IVP SCH ×3 (10:04→20:15)
[2018-03-13] MEDS: Nicotine 14 MG PATCH TOP SCH (10:06)
[2018-03-13] MEDS: Senokot 8.6 MG TAB PER TUBE SCH (20:01)
--- NOTE | 2018-03-13 21:26 | OP ---
DATE OF PROCEDURE: 03/13/2018 PROCEDURE PERFORMED: Bedside replacement of percutaneous and gastrostomy tube. PREOPERATIVE NOTE: Mr. Zarate underwent endoscopy yesterday by Dr. Pizarro. The gastrostomy tube external bumper was noted to have migrated up and this allowed the balloon to get caught in the proximal stomach and all the feeds were then being entrapped in the fundus region with reflux to the esophagus. The balloon was pulled back to the proper position and he tolerated his feeds well last night and this morning. I walked in his room this afternoon and he was standing in the room with the feeding tube on the floor. He states that he pulled on a string that was in his abdomen. He is oriented to his name and place, but not the year. DESCRIPTION OF PROCEDURE: The skin site was cleaned with a 4 x 4 and water. A 20-Slovenian replacement gastrostomy tube was then placed through the existing ostomy opening into the stomach. The internal balloon was inflated to 20 mL and the external bumper was placed at 4 cm. I flushed the tube with sterile water and he tolerated this well. I did flush air through the tube as well and it sounded to be in good position in the stomach. IMPRESSION: 1. Replacement of a percutaneous 20-Slovenian gastrostomy tube at the bedside. The external bumper was placed at 4 cm and tape was placed around the tube above that to prevent the external bumper from migrating and allowing the internal balloon to get trapped in the incorrect position again. 2. Mild encephalopathy. RECOMMENDATIONS: 1. Restart bolus feeds. 2. I will check an ammonia level, however, there is known history of cirrhosis. Job ID: [id number]
[2018-03-14] MEDS: Polyethylene Glycol 3350 17 GM Packet PER TUBE SCH (08:32)
[2018-03-14] MEDS: Senokot 8.6 MG TAB PER TUBE SCH ×2 (08:32→21:03)
[2018-03-14] MEDS: Nicotine 14 MG PATCH TOP SCH (08:32)
[2018-03-14] MEDS: Lorazepam 2 MG/ML VIAL SLOW IVP SCH ×3 (08:33→21:04)
[2018-03-14] MEDS: Pantoprazole 40 MG VIAL IVP SCH ×2 (08:37→21:03)
[2018-03-14] MEDS ORDERED: Fentanyl 100 MCG/2 ML VIAL SLOW IVP PRN (09:30)
--- NOTE | 2018-03-14 14:11 | PQF ---
CLINICAL DOCUMENTATION IMPROVEMENT CLARIFICATION FORM: ICD-10 Updated PLEASE DO AN ADDENDUM TO THE PROGRESS NOTE WITH ANY DOCUMENTATION UPDATES OR ADDITIONS AND CARRY THROUGH TO DC SUMMARY. THANK YOU. Date: 03/14/2018; 03/15/2018 ATTN: Dr. Jimenez Please exercise your independent, professional judgment in responding to the clarification form. Clinical indicators are provided on the bottom of this form for your review Please check appropriate box(s): [ ] Protein Calorie Malnutrition: [ ] Mild [ ] Moderate [ ] Severe [ ] Other Malnutrition (please specify) [ ] Underweight without malnutrition [ x ] Cachexia [ ] Other diagnosis [ ] Unable to determine In addition, please specify: Present on Admission (POA): [ x ] Yes [ ] No [ ] Unable to determine CLINICAL INDICATORS - SIGNS / SYMPTOMS / LABS H&P 2/2: He was hurt whenever the PEG site was used, so that he quit feeding himself and over the last 2 weeks, he has lost 16 pounds. ROS: He is weak, cachectic, but denies fever or chills PE: Temporal wasting and sunken eyes are noted. Muscular wasting in all four extremities was noted Percutaneous endoscopic gastrostomy tube site pain. Failure to thrive General Surgeon Consult: Cachexia due to esophageal stricture with pain at PEG site w/ any use. Production Helper Assessment 2: %Weight Change: -14% by stated wt loss Nutrition Dx: Underweight related to poor intake. RISKS: H&P: Long hx of esophageal stricture, for which he has had a tube placed. He was hurt whenever the PEG site was used, so that he quit feeding himself and over the last 2 weeks, he has lost 16 pounds. Hx hepatitis C. COPD GI: Chronic opioid dependence TREATMENT: 03/11: Production Helper assessment triggered for WTL, PO 03/13: Diet: Tube Feeding Moderate Malnutrition (in acute illness) Energy Intake: <75% of estimated energy requirement for > 7 days Weight Loss: 1-2%/1 week; 5%/ 1 month; 7.5%/3 months Other: mild body fat loss; mild muscle mass loss; mild fluid accumulation; Severe Malnutrition (in acute illness) Energy Intake: < 50% of estimated energy requirement for > 5 days Weight Loss: >1-2%/ 1 week; >5%/ 1 month; >7.5%/3 months Other: moderate body fat loss; moderate muscle mass loss; moderate- severe fluid accumulation; measurably reduced tooth grinder strength Moderate Malnutrition (in chronic illness) Energy Intake: <75% of estimated energy requirement for >1 month Weight Loss: 5%/1 month; 7.5%/3 months; 10%/6 months; 20%/1 year Other: mild body fat loss; mild muscle mass loss; mild fluid accumulation Severe Malnutrition (in chronic illness) Energy Intake: <75% of estimated energy requirement for >1 month Weight Loss: >5%/1 month; >7.5%/3 months; >10%/6 months; >20%/1 year Other: severe body fat loss; severe muscle mass loss; severe fluid accumulation; measurably reduced tooth grinder strength Thank you, Ilda (This form is maintained as a part of the permanent medical record) 2014 [employer]. All Rights Reserved Ilda Gill RN, BSN [email or web address] Office: [phone] [facility]
--- NOTE | 2018-03-14 18:38 | PRG ---
DATE OF SERVICE: 03/14/2018 SUBJECTIVE: Mr. Zarate has tolerated his bolus gastrostomy tube feeds well today. OBJECTIVE: His abdomen is soft, nontender, nondistended. His bowel sounds are present. His PEG site looks clean and healthy. IMPRESSION: 1. Dysphagia. He has had long-term gastrostomy tube due to severe erosive esophagitis. He was hospitalized with painful tube feedings and the balloon had flipped up into the fundus of the stomach and he was having significant reflux with that. The balloon was pulled back into position during endoscopy on Tuesday. However, yesterday afternoon, the patient pulled his G-tube out and I replace that at the bedside with external bumper placed at 4 cm. Today, he is tolerating his tube feeds well. 2. Dementia versus altered mental status. He does not seem to be significantly off his baseline mental status based on my previous interactions over the last couple of years. PLAN: 1. He is awaiting placement for mcc. 2. Continue bolus tube feeds. 3. I will sign off. Please call if GI can be of assistance. Job ID: [id number]
[2018-03-15] MEDS: Senokot 8.6 MG TAB PER TUBE SCH ×2 (10:09→22:02)
[2018-03-15] MEDS: Nicotine 14 MG PATCH TOP SCH (10:09)
[2018-03-15] MEDS: Polyethylene Glycol 3350 17 GM Packet PER TUBE SCH (10:09)
[2018-03-15] MEDS: Lorazepam 2 MG/ML VIAL SLOW IVP SCH ×3 (10:10→22:02)
[2018-03-15] MEDS: Pantoprazole 40 MG VIAL IVP SCH ×2 (10:12→22:02)
[2018-03-16 07:50] VITALS: TEMP 98.9
[2018-03-16] MEDS: Pantoprazole 40 MG VIAL IVP SCH (08:33)
[2018-03-16] MEDS: Lorazepam 2 MG/ML VIAL SLOW IVP SCH (08:34)
[2018-03-16] MEDS: Senokot 8.6 MG TAB PER TUBE SCH (08:34)
[2018-03-16] MEDS: Polyethylene Glycol 3350 17 GM Packet PER TUBE SCH (08:34)
[2018-03-16] MEDS: Nicotine 14 MG PATCH TOP SCH (08:34)
[2018-03-16 10:59] VITALS: BP 106/68
--- NOTE | 2018-03-18 18:06 | EKG ---
Test Reason : Blood Pressure : / mmHG Vent. Rate : 097 BPM Atrial Rate : 097 BPM P-R Int : 122 ms QRS Dur : 112 ms QT Int : 374 ms P-R-T Axes : 075 158 028 degrees QTc Int : 474 ms Normal sinus rhythm Right bundle branch block Confirmed by JOCELYN DUBON ([id number]), online editor KAY ALEJANDRE ([id number]) on 03/18/2018 6:05:56 PM Referred By: Confirmed By:JOCELYN DUBON
== END 2018-03-16 16:59 | DRG 327 ==
LOC: ERS 09:51 → T4-A 15:36 → OBSVTOIN 03-11 08:37
PROVIDERS: ADMIT Specialist; ATTEND Specialist
PROC: 0DW64UZ Revision of Feeding Device in Stomach, Percutaneous Endoscopic Approach (ICD-10-PCS; principal; 2018-03-12)
PROC: 0D20XUZ Change Feeding Device in Upper Intestinal Tract, External Approach (ICD-10-PCS; 2018-03-13)
DX: K94.23 Gastrostomy malfunction (principal); Z68.1 Body mass index [BMI] 19.9 or less, adult; G93.40 Encephalopathy, unspecified; E46 Unspecified protein-calorie malnutrition; B19.20 Unspecified viral hepatitis C without hepatic coma; K22.2 Esophageal obstruction; J44.9 Chronic obstructive pulmonary disease, unspecified; K21.9 Gastro-esophageal reflux disease without esophagitis; K59.09 Other constipation; K82.8 Other specified diseases of gallbladder
CPT/HCPCS: 36415; 36416; 71046; 74018; 74177; 74181; 76705; 80053; 82140; 82274; 82550; 82553; 83690; 84484; 85025; 93005; 96360; 96361; B4087; C9113; J2060; J2704; J3010; Q9963; Q9966

== ENCOUNTER 2018-04-05 10:02 | Day surgery (SDC) | payer MEDICARE ==
[2018-04-04 09:42] VITALS: BMI 15.0
[2018-04-05 10:27] LABS: Hemoglobin 10.1 g/dL (14.0-18.0); Mean Corpuscular HGB CONC 31.5 g/dL (32.0-36.0); Mean Platelet Volume 7.3 fL (7.4-10.4); Platelet Count 348 thou/uL (130-400); RBC Distribution Width 14.2 % (11.5-14.5); Red Blood Cell (RBC) Count 3.05 mill/uL (4.70-6.10); White Blood Cell (WBC) Count 6.2 thou/uL (4.8-10.8)
[2018-04-05 10:33] LABS: Prothrombin Time 13.7 SEC (12.0-14.7)
[2018-04-05 10:56] LABS: ALT (SGPT) 8 U/L (8-55); AST (SGOT) 13 U/L (5-34); Alkaline Phosphatase 61 U/L (40-150); Anion Gap 12 mmol/L (10-20); BUN (Urea Nitrogen) 11 mg/dL (8.4-25.7); Bilirubin, Total 0.3 mg/dL (0.2-1.2); Calc. Creatinine Clearance 51 mL/min (70-130); Calcium 8.7 mg/dL (7.8-10.44); Carbon Dioxide 26 mmol/L (23-31); Chloride 102 mmol/L (98-107); Estimated GFR-MDRD 89; Globulin 3.2 g/dL (2.4-3.5); Glucose 79 mg/dL (80-115); Potassium 3.7 mmol/L (3.5-5.1); Protein, Total 6.2 g/dL (5.8-8.1); Sodium 136 mmol/L (136-145)
[2018-04-05] MEDS ORDERED: PROPOFOL 200 MG/20 ML VIAL ONE (11:15)
[2018-04-05] MEDS ORDERED: Lidocaine 1% PF 5 ML VIAL ONE (11:15)
--- NOTE | 2018-04-05 18:43 | OP ---
DATE OF PROCEDURE: 04/05/2018 PROCEDURE PERFORMED: Esophagogastroduodenoscopy with balloon dilation of a distal esophageal stricture. PREOPERATIVE DIAGNOSES: Esophageal stricture and dysphagia. DESCRIPTION OF PROCEDURE: Informed consent was obtained from the patient. He was sedated with total intravenous anesthesia. The bite block was placed, and the endoscope was advanced easily to the second portion of the duodenum, and retroflexion was performed in the stomach. A distal esophageal stricture was encountered from 30 to 35 cm. This was too tight to pass the diagnostic endoscope through. This was dilated to 12 mm with a balloon dilator. There were ulceration and appropriate tear at the dilation site. The endoscope could be passed through the stricture after the dilation. There was a hiatal hernia present. The gastrostomy tube was in place in the body of the stomach. The remainder of the gastric mucosa was unremarkable. The pylorus and first and second portions of the duodenum were normal. IMPRESSION: 1. Tight distal esophageal stricture from 30 to 35 cm, dilated to 12 mm with a balloon. 2. PEG tube in place in the body of the stomach. 3. Hiatal hernia. 4. Otherwise normal esophagogastroduodenoscopy. RECOMMENDATIONS: 1. Continue Nexium 40 mg twice daily. 2. Repeat EGD in 4 weeks to dilate the stricture further. 3. Check liver function tests in 1 month. He was noted to have dilated bile ducts and some sludge in the gallbladder by ultrasound. MRCP again showed some dilation of the intra and extrahepatic ducts to 10 mm. Repeat LFTs today are normal, and I will continue to monitor the liver tests. Job ID: [id number]
== END 2018-04-05 14:18 | disposition home or self-care (01) ==
LOC: SDC 10:02
PROVIDERS: ATTEND Internal Medicine Gastroenterology
PROC: 0D758ZZ Dilation of Esophagus, Via Natural or Artificial Opening Endoscopic (ICD-10-PCS; principal; 2018-04-05)
DX: K22.2 Esophageal obstruction (principal); K44.9 Diaphragmatic hernia without obstruction or gangrene
CPT/HCPCS: 36415; 80053; 85027; 85610

== ENCOUNTER 2018-04-21 10:51 | Day surgery (SDC) | payer MEDICARE, MEDICAID ==
[2018-04-20 16:32] VITALS: BMI 19.3
--- NOTE | 2018-04-21 13:37 | OP ---
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 PROCEDURE PERFORMED: EGD with esophageal dilation and PEG placement. INDICATIONS: 1. Oropharyngeal dysphagia. 2. Esophageal stricture. 3. The patient accidentally pulled his PEG tube out yesterday, and this was unable to be replaced at bedside due to stenosis of the tract. MEDICATIONS: 1. See Anesthesia record. 2. Ancef 2 g IV. FINDINGS: After discussion of the risks, benefits, and alternatives of the procedure, informed consent was obtained and witnessed. Preendoscopic cardiopulmonary examination was satisfactory. Time-out was performed before sedation was achieved. Sedation was achieved with Anesthesia assistance in the endoscopy unit. A Pentax adult upper endoscope was placed into the oropharynx and passed through the cricopharyngeus under direct visualization. In the distal esophagus, there was a very tight benign fibrotic esophageal stricture. The endoscope was unable to be advanced beyond the stricture. There was significant friability and scarring in the area. A serial balloon dilator was used to progressively dilate the lower esophagus first at 10 mm, then 11 mm, then 12 mm. There was good mucosal disruption with this. This was enough to pass the upper endoscope down into the stomach. Forward and retroflexed views of the entire gastric mucosa were obtained. There is an ulcerated area, which represents his PEG tract and appears to have already completely closed up. The remainder of the stomach appears normal. The endoscope was advanced through the pylorus and into the first and second portions of the duodenum, which also appeared normal. At this point, the PEG site was prepped and draped in a sterile fashion. I did anesthetize with subcutaneous lidocaine. The introducer needle and catheter were then passed through his old PEG tract easily into the gastric lumen. The wire was passed through the catheter and grasped with a snare and withdrawn from the patient's mouth. A new 20-Nigerian PEG tube was affixed to the wire and pulled through into position in the standard fashion without difficulty. The endoscope was then passed back down into the stomach and the internal bumper was found to be in good position. The endoscope was withdrawn. The external bumper clamp and external ports were affixed to the PEG tube. The external bumper was placed at a distance of 4.5 cm, which should be a good distance for him. The procedure was then complete. The patient tolerated the procedure well. There were no immediate postprocedure complications. IMPRESSION: 1. Distal esophageal stricture, dilated to 12 mm. 2. Successful placement of 20-Nigerian percutaneous endoscopic gastrostomy tube to the left upper quadrant at his previous percutaneous endoscopic gastrostomy site. RECOMMENDATIONS: 1. Use PEG tube as before. 2. Follow up in clinic with PA in 1-2 weeks. 3. Use an abdominal binder to hopefully prevent this PEG dislodgement from happening again. Job ID: [id number]
[2018-04-21] MEDS ORDERED: PROPOFOL 200 MG/20 ML VIAL ONE (16:36)
== END 2018-04-21 14:55 | disposition home or self-care (01) ==
LOC: SDC 10:51
PROVIDERS: ATTEND Internal Medicine
PROC: 0D758ZZ Dilation of Esophagus, Via Natural or Artificial Opening Endoscopic (ICD-10-PCS; principal; 2018-04-21)
PROC: 0DH63UZ Insertion of Feeding Device into Stomach, Percutaneous Approach (ICD-10-PCS; 2018-04-21)
DX: K22.2 Esophageal obstruction (principal); K94.23 Gastrostomy malfunction; Z79.899 Other long term (current) drug therapy
CPT/HCPCS: 94660; J2704

== ENCOUNTER 2018-06-16 13:56 | Emergency (ER) | payer MEDICARE ==
--- NOTE | 2018-06-16 15:01 | RAD ---
XR Chest 1 View Portable HISTORY: Chest pain COMPARISON: 11/15/2017 FINDINGS: The heart size normal. There is an infiltrate in the left lower lung which was not seen on the previous study. No pneumothoraces or pleural effusions are seen IMPRESSION: Left-sided pneumonia.
[2018-06-16 15:09] LABS: #Lymphocytes 1.1 thou/uL (1.20-3.40); #Monocytes 0.8 thou/uL (0.11-0.59); #Neutrophils 11.4 thou/uL (1.40-6.50); %Eosinophils 0.2 % (0.0-10.0); %Lymphocytes 8.5 % (21.0-51.0); %Monocytes 5.9 % (0.0-10.0); %Neutrophils 85.3 % (42.0-75.0); Hemoglobin 13.9 g/dL (14.0-18.0); Mean Corpuscular HGB CONC 32.6 g/dL (32.0-36.0); Mean Corpuscular Hemoglobin 32.6 pg (27.0-31.0); Mean Platelet Volume 8.1 fL (7.4-10.4); Platelet Count 323 thou/uL (130-400); RBC Distribution Width 12.4 % (11.5-14.5); Red Blood Cell (RBC) Count 4.27 mill/uL (4.70-6.10); White Blood Cell (WBC) Count 13.3 thou/uL (4.8-10.8)
--- NOTE | 2018-06-16 15:28 | CT ---
CT BRAIN WITHOUT CONTRAST: HISTORY:Worsening headache COMPARISON:04/25/2013 FINDINGS: There are foci of decreased attenuation in the periventricular white matter, consistent with chronic small vessel ischemic disease. Small old lacunar infarcts are noted in the basal ganglia. No evidence of acute infarct, hemorrhage, midline shift or abnormal extra-axial fluid collections is seen. The ventricular size is appropriate and the basilar cisterns are patent. The bony calvarium is intact. The visualized paranasal sinuses and mastoid air cells are well aerated. IMPRESSION: No CT evidence of acute intracranial process.
[2018-06-16 15:32] LABS: ALT (SGPT) 19 U/L (8-55); AST (SGOT) 25 U/L (5-34); Albumin 4.7 g/dL (3.4-4.8); Alkaline Phosphatase 96 U/L (40-150); Anion Gap 17 mmol/L (10-20); BUN (Urea Nitrogen) 23 mg/dL (8.4-25.7); Bilirubin, Total 0.4 mg/dL (0.2-1.2); Calc. Creatinine Clearance 0 mL/min (70-130); Calcium 10.1 mg/dL (7.8-10.44); Carbon Dioxide 26 mmol/L (23-31); Chloride 102 mmol/L (98-107); Estimated GFR-MDRD 71; Globulin 4.3 g/dL (2.4-3.5); Glucose 121 mg/dL (80-115); Potassium 3.8 mmol/L (3.5-5.1); Sodium 141 mmol/L (136-145)
[2018-06-16] MEDS ORDERED: cefTRIAXone\\ROCEPHIN 1 GM VIAL ONE (15:36)
[2018-06-16] MEDS ORDERED: Acetaminophen 500 MG TAB ONE (15:36)
[2018-06-16] MEDS ORDERED: Metoclopramide HCl 10 MG/2 ML VIAL ONE (15:36)
[2018-06-16] MEDS ORDERED: diphenhydrAMINE 50 MG/ML VIAL ONE (15:36)
[2018-06-16] MEDS ORDERED: Azithromycin 500 MG in Sodium Chloride 0.9% 250 ML 250 ML IVPB ONE (17:15)
== END 2018-06-16 18:15 | disposition home or self-care (01) ==
LOC: ERS 13:56
DX: J18.9 Pneumonia, unspecified organism (principal); R51 Headache; F41.9 Anxiety disorder, unspecified; F17.210 Nicotine dependence, cigarettes, uncomplicated; I10 Essential (primary) hypertension; Z86.19 Personal history of other infectious and parasitic diseases; Z79.899 Other long term (current) drug therapy
CPT/HCPCS: 36415; 70450; 71045; 80053; 83605; 84484; 85025; 87040; 96365; 96367; 96368; 96375; J0456; J0696; J1200; J2765; J7050

== ENCOUNTER 2019-03-02 10:45 | Outpatient (CLI) | payer MEDICARE, MEDICAID ==
[2019-03-02] MEDS ORDERED: GASTROGRAFIN 30 ML BOT ONE (10:56)
--- NOTE | 2019-03-02 12:24 | RAD ---
EXAM: Single view of the abdomen HISTORY: PEG tube check COMPARISON: 03/11/2018 FINDINGS: Single view of the abdomen shows a nonspecific, nonobstructive bowel gas pattern. No suspi cious calcifications are seen. A gastrostomy tube is seen projecting over the left upper quadrant of the abdomen. Degenerative changes are seen in the spine. IMPRESSION: Gastrostomy tube appears in appropriate position.
== END 2019-03-02 10:46 | disposition home or self-care (01) ==
LOC: RAD 10:45
PROVIDERS: ATTEND Physician Assistant Medical
DX: Z43.1 Encounter for attention to gastrostomy (principal)
CPT/HCPCS: 74018

== ENCOUNTER 2019-03-02 12:54 | Observation (INO) | payer MEDICARE, MEDICAID ==
[2019-03-02 15:29] LABS: Hemoglobin 13.3 g/dL (14.0-18.0); Mean Corpuscular HGB CONC 33.4 g/dL (32.0-36.0); Mean Corpuscular Hemoglobin 33.1 pg (27.0-31.0); Mean Corpuscular Volume 99.1 fL (78.0-98.0); Mean Platelet Volume 8.5 fL (7.4-10.4); Platelet Count 255 thou/uL (130-400); RBC Distribution Width 11.8 % (11.5-14.5); Red Blood Cell (RBC) Count 4.01 mill/uL (4.70-6.10); White Blood Cell (WBC) Count 15.5 thou/uL (4.8-10.8)
[2019-03-02 15:41] LABS: Band 17 % (5-11); Eosinophils 2 % (0-10); Lymphocytes 9 % (21-51); MDiff Complete? YES; Monocytes 4 % (0-10); Neutrophil 68 % (42-75); Platelet Morphology Comment Appears Adequate; RBC Morphology Normal
[2019-03-02 15:50] LABS: Anion Gap 13 mmol/L (10-20); BUN (Urea Nitrogen) 16 mg/dL (8.4-25.7); Calc. Creatinine Clearance 0 mL/min (70-130); Calcium 9.6 mg/dL (7.8-10.44); Carbon Dioxide 30 mmol/L (23-31); Chloride 100 mmol/L (98-107); Estimated GFR-MDRD 64; Glucose 108 mg/dL (80-115); Potassium 3.8 mmol/L (3.5-5.1); Sodium 139 mmol/L (136-145)
--- NOTE | 2019-03-02 16:08 | CON ---
DATE OF CONSULTATION: 03/02/2019 CHIEF COMPLAINT: Abdominal pain with tube feeds and inability to tolerate tube feeds. HISTORY OF PRESENT ILLNESS: Mr. Zarate is a 68-year-old man with a chronic esophageal stricture, that has been severe and has required repeated dilations; however, ultimately, repeated dilations have not been adequate, and he has had a PEG tube for feedings longer term. His PEG tube was last placed in April of 2018. At that time, he had accidentally pulled his PEG tube out, and Dr. Cruz replaced it in April of 2018. He has had repeated balloon dilatations of the distal esophageal stricture prior to that. He has had no endoscopic procedures since then. The patient came into the office yesterday and saw the PA and Dr. Altamirano and at that point was reporting pain with administration of tube feeds. The tube was checked with Gastrografin. The Gastrografin did flow through to the stomach. The tube, however, was not mobile. The patient came into the emergency room today due to inability to tolerate feeds and pain with feeds. On my exam, the bumper is lodged in the abdominal wall, and therefore, cannot be advanced into the stomach. There is a tract from the level of the tube through to the stomach, that is thin and can be seen on the barium x-ray; however, the tract is not adequate to replace the tube. I did remove the current PEG tube bumper from the abdominal wall. Attempt at replacement with a 20-Slovak gastrostomy tube will not go through the distal part of the tract as this has already closed up. The patient otherwise has no acute complaints. He spits the saliva into a bag at the bedside. PAST MEDICAL HISTORY: Chronic esophageal stricture, gastroparesis. He had a history of positive HCV antibody, but it is RNA negative and does not have chronic hepatitis C infection. He does have a history of chronic opioid dependence and heroin addiction in the past. PAST SURGICAL HISTORY: Numerous upper endoscopies with esophageal dilation and multiple PEG tube placements. Colonoscopy with polypectomy in 2011. FAMILY HISTORY: Noncontributory. SOCIAL HISTORY: The patient smokes. No alcohol. ALLERGIES: NO KNOWN DRUG ALLERGIES. OUTPATIENT MEDICATIONS: 1. Nexium granules 40 mg twice daily per gastrostomy tube. 2. Alprazolam. 3. Amlodipine with valsartan. 4. Buprenorphine with naloxone. 5. Mirtazapine. 6. Suboxone. 7. Zolpidem. REVIEW OF SYSTEMS: Negative x10 systems reviewed except as stated in the history of present illness. PHYSICAL EXAMINATION: VITAL SIGNS: He is afebrile, pulses in the 70s, blood pressures in the 120s systolic. HEENT: Eyes have no scleral icterus. Oropharynx has terrible dentition. NECK: There is no cervical or supraclavicular lymphadenopathy. LUNGS: Clear to auscultation bilaterally. HEART: Regular rate and rhythm without murmur. ABDOMEN: Soft, nontender, and nondistended. Bowel sounds are present. The gastrostomy tube has the external bumper at 2 cm. This is actually off the wall of the abdomen, and the internal bumper is very shallow. The internal bumper could not be advanced into the stomach. It is clearly lodged in the abdominal wall. The gastrostomy tube was removed with gentle traction easily. This was shallow, and he does have an open tract externally, through which a 20-Slovak replacement gastrostomy tube was advanced; however, the internal part of this tract is closed and narrow, and the tube could not be advanced percutaneously. EXTREMITIES: He has no lower extremity edema. IMPRESSION: 1. Malfunction of gastrostomy tube. The internal bumper of the gastrostomy tube was lodged in the abdominal wall. There was still some tract between the abdominal wall and the stomach, through which Gastrografin passed, but he has had pain with administration of food and has been unable to meet nutritional needs with this tube. It was removed today in the ER, however, could not be replaced percutaneously. 2. Chronic esophageal stricture. RECOMMENDATIONS: 1. He will be admitted for IV fluids. 2. Proton-pump inhibitor twice daily. 3. EGD tomorrow with Dr. Yung to dilate his esophageal stricture and replace the gastrostomy tube. Job ID: [id number]
[2019-03-02] MEDS ORDERED: Buprenorphine 8mg/Naloxone 2mg per 1 FILM SL SCH (19:00)
[2019-03-02] MEDS: Sodium Chloride 0.9% 1,000 ML IV SCH (20:46)
[2019-03-02] MEDS: Lorazepam 2 MG/ML VIAL SLOW IVP PRN (21:35)
[2019-03-03] MEDS: Sodium Chloride 0.9% 1,000 ML IV SCH ×3 (06:50→20:30)
[2019-03-03] MEDS: Lorazepam 2 MG/ML VIAL SLOW IVP PRN (08:31)
[2019-03-03] MEDS ORDERED: PROPOFOL 200 MG/20 ML VIAL ONE (09:11)
[2019-03-03] MEDS ORDERED: Buprenorphine 8mg/Naloxone 2mg per 1 FILM SL SCH ×2 (09:45→17:00)
[2019-03-03] MEDS ORDERED: Lorazepam 2 MG/ML VIAL SLOW IVP SCH (09:45)
[2019-03-03] MEDS ORDERED: Pantoprazole 40 MG VIAL IVP SCH (09:45)
[2019-03-03] MEDS: cloNIDine 0.2mg/24 Hour PATCH TD SCH ×2 (11:41→14:20)
[2019-03-03] MEDS: Nicotine 14 MG PATCH TOP SCH ×2 (11:41→13:05)
[2019-03-03] MEDS ORDERED: Ondansetron HCl/PF 4 MG/2 ML Vial IVP PRN (12:16)
[2019-03-03] MEDS ORDERED: Promethazine HCl 25 MG/ML VIAL SLOW IVP PRN (12:16)
[2019-03-03] MEDS ORDERED: Promethazine HCl 25 MG/ML VIAL IM PRN (12:16)
[2019-03-03] MEDS: Pantoprazole 40 MG VIAL IVP SCH ×2 (12:59→20:31)
--- NOTE | 2019-03-03 14:32 | HP ---
CHIEF COMPLAINT ON ADMISSION: PEG tube malfunction. HISTORY OF PRESENT ILLNESS: The patient began to have abdominal pain with tube feeding and inability to tolerate his tube feedings approximately 2 days ago. He came to the emergency room where was noted that his PEG had dislodged and the emergency room doctor tried to replace it. This happened about a year ago when Dr. Cruz had replaced in April 2018. He has a history of repeated esophageal strictures and balloon dilatations necessitating the PEG tube. He has done well since that last dilatation and PEG tube placement until this began to happen. Dr. Grimm came and saw the patient in the emergency room and noted that the bumper was lodged into the abdominal wall and could not be advanced into the stomach. The tract could be seen on the barium x-ray, but he was not able to adequately replace the tube. He removed the current tube, tried to replace a 20-Bulgarian gastrostomy tube, but not go through. The patient is unable to tolerate even his salivation spitting that into a bag necessitating that the patient be put in the hospital for fluid management and replacement of the PEG feeding tube. PAST MEDICAL HISTORY: As mentioned above is significant for chronic esophageal strictures and gastroparesis with repeated esophageal dilatations. He has a history of hepatitis C antibody, but is RNA negative and does not have chronic hepatitis C infection. He is a previous opioid abuser and has now been maintained satisfactorily on Suboxone, has not used in over three years. He has very severe anxiety disorder, hypertension, early cirrhosis, and COPD. PAST SURGICAL HISTORY: Includes aforementioned esophageal dilatations, the last on 04/25 PEG placement. He has had surgery on both his feet, colonoscopy with polypectomies in 2011. PSYCHIATRIC HISTORY: Significant for anxiety as mentioned above and depression. FAMILY HISTORY: Noncontributory. SOCIAL HISTORY: The patient continues to smoke, but denies alcohol use for eight years. 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 ALLERGIES: NO KNOWN DRUG ALLERGIES. MEDICATIONS ON ADMISSION: Include; 1. Zolpidem 10 mg at bedtime. 2. Remeron 45 mg daily for anxiety, depression, and appetite stimulation. 3. He takes Xanax 1 mg b.i.d. 4. Suboxone 8/2 Film one orally daily. 5. The patient also takes Vibramycin 100 mg per PEG b.i.d. REVIEW OF SYSTEMS: CONSTITUTIONAL: Denies fever, malaise, fatigue. HEENT: No lesions in ears, nose, or throat. Has trouble managing salivation however. CHEST: Has chronic dyspnea, but no current cough. CARDIOVASCULAR: Denies palpitations or chest pain. GI: Denies nausea, vomiting, or diarrhea. : Denies blood in urine or stool or painful defecation. MUSCULOSKELETAL: Denies any pain in major muscle joints or muscle groups. SKIN: No new rashes or lesions. NEUROLOGIC: Denies headaches, blurred vision, or trouble with mentation. PHYSICAL EXAMINATION: At the time of admission, VITAL SIGNS: Blood pressure is 138/76, temperature 98.1, pulse 65, respirations 18, O2 saturation 99% on room air. He weighs 128 pounds. GENERAL: This is a thin, cachectic Latin-Mexican male, alert, oriented, cooperative, no acute distress, having to spit into a cup to manage his salivation. HEENT: Normocephalic, atraumatic. Mild temporal wasting noted. TMs and nares are clear. Pharynx with extremely poor dentition with excessive salivation. NECK: Supple. Trachea midline. CHEST: Generally diminished breath sounds. HEART: Regular rate and rhythm without murmur. ABDOMEN: Firm, scaphoid, scarred from previous PEG placement. No drainage or pain with palpation. : Deferred. EXTREMITIES: Without clubbing, cyanosis, or edema. Symmetrical muscular wasting in upper and lower extremities. SKIN: With poor turgor, but no acute rashes or lesions. NEUROLOGIC: Cranial nerves are intact. Gait and cerebellar function are untested. Sensory exam is grossly intact. Mental status is nonfocal and at baseline. LABORATORY DATA: Lab work thus far shows WBC 15.5, hemoglobin 13.3, hematocrit 39.8 with platelets 255. Sodium 139, potassium 3.8, chloride 100, CO2 of 30, BUN is 16, creatinine 1.15 with a GFR 64, glucose 108, and calcium 9.6. ASSESSMENT: 1. Percutaneous endoscopic gastrostomy malfunction with displacement. 2. Severe anxiety disorder. 3. Opioid dependence. 4. Chronic obstructive pulmonary disease. PLAN: Plan will be to continue maintenance fluids. We will replace his Xanax with IV Ativan until he is able to take PEG placed medicines again. GI has already been consulted for replacement of the PEG. We will re-evaluate him for possible discharge once the PEG has been replaced and shown to function normally. Job ID: [id number]
[2019-03-03 14:36] VITALS: BMI 21.2
[2019-03-03] MEDS: Lorazepam 2 MG/ML VIAL SLOW IVP SCH ×2 (15:46→20:32)
--- NOTE | 2019-03-03 17:23 | PRG ---
DATE OF SERVICE: 03/03/2019 SUBJECTIVE: This is a 68-year-old Latin-Slovenian male, who had an EGD and some dilation of his esophageal stricture. He also underwent a G-tube placement. He is doing well at this time. He denies any chest pain or abdominal pain. He appears very comfortable. Vital signs are stable. I did talk to Ms. Zarate and explained to him about the endoscopic findings. I also saw his family members and all. They were also told about the endoscopic findings and the plan is to start tube feeding after 5 p.m. today. Job ID: [id number]
[2019-03-03] MEDS ORDERED: Prevnar 13-Val Conj/PF 0.5 ML SYRINGE IM ONE (21:00)
[2019-03-03] MEDS ORDERED: Mirtazapine 15 MG TAB PER TUBE ONE (22:00)
[2019-03-03] MEDS ORDERED: ALPRAZolam 1 MG TAB PER TUBE ONE (22:00)
[2019-03-03] MEDS ORDERED: Zolpidem Tartrate 5 MG TAB PER TUBE ONE (22:00)
[2019-03-04] MEDS: Sodium Chloride 0.9% 1,000 ML IV SCH ×3 (05:04→08:58)
[2019-03-04] MEDS: Pantoprazole 40 MG VIAL IVP SCH (08:45)
[2019-03-04] MEDS ORDERED: ALPRAZolam 1 MG TAB PER TUBE SCH (09:00)
[2019-03-04] MEDS ORDERED: Buprenorphine 8mg/Naloxone 2mg per 1 FILM SL SCH (09:00)
[2019-03-04] MEDS: Nicotine 14 MG PATCH TOP SCH (10:38)
[2019-03-04] MEDS ORDERED: cloNIDine 0.2mg/24 Hour PATCH TD SCH (10:45)
[2019-03-04 11:24] VITALS: BP 123/70; TEMP 98
[2019-03-04] MEDS ORDERED: Mirtazapine 15 MG TAB PER TUBE SCH (21:00)
[2019-03-04] MEDS ORDERED: Zolpidem Tartrate 5 MG TAB PER TUBE SCH (21:00)
--- NOTE | 2019-03-05 10:11 | OP ---
DATE OF PROCEDURE: 03/03/2019 PROCEDURES PERFORMED: 1. Esophagogastroduodenoscopy. 2. Balloon dilation to size 15-Cambodian on the esophageal stricture. 3. Esophagogastroduodenoscopy and endoscopic gastrostomy tube placement. PREOPERATIVE DIAGNOSES: A 68-year-old Latin-Indian male with a previously placed G-tube, which came out yesterday. An attempt to replace this was unsuccessful. The patient is undergoing EGD. He also has a history of tight esophageal stricture with previous multiple dilations. POSTOPERATIVE DIAGNOSES: 1. Tight esophageal stricture at 30 cm with friable mucosa. 2. Normal stomach and duodenum. DESCRIPTION OF PROCEDURE: The patient was placed on his left lateral position and was given sedation by Anesthesia Department. A Pentax video gastroscope under direct vision passed down the oropharynx and passed the upper esophageal sphincter into the mid esophagus. The patient was found to have a very tight stricture mucosal edema, erythema, and some ulceration. I could not advance the scope past the stricture. So, I elected to do a balloon dilation with a size 15 to 18-Cambodian balloon. The balloon was inflated to stage 2 for 1 minute followed by another stage 1 for 2 more minutes. Following dilation, the lumen opened. The scope was advanced to the stomach. The fundus and cardia, gastric body, and gastric antrum, no lesion seen. The duodenum including the bulb and descending part, no lesion. Initially, I tried to put the G-tube at the same place as the initial PEG tube. I tried to advance our Angiocath through some opening into the stomach. However, it really did not come out into the stomach. So, I elected to try to pass the snare through the previous gastrostomy tube opening and snare was advanced through the opening outside. The guidewire was grasped with a polypectomy snare and pulled outside the mouth. To the end of the guidewire protruding outside the mouth, a gastrostomy tube was connected. The wire was pulled back retrograde, and the tube was left in place in the stomach. The patient was re-scoped again to confirm proper placement of G-tube. There were friability and mild oozing of blood at the distal esophagus and mid esophagus from the stricture. No complication noted. The stomach was decompressed, and the scope was removed. RECOMMENDATIONS: 1. N.p.o. for 4 hours. 2. May start G-tube feeding later on this evening. Job ID: [id number]
--- NOTE | 2019-03-06 18:28 | PRG ---
DATE OF SERVICE: 03/04/2019 SUBJECTIVE: The patient states he rested better last night. Since this PEG has been replaced, he denies any new pain or discomfort and he is anxious to go home. He is lying peacefully in bed. OBJECTIVE: VITAL SIGNS: The patient since last visit has been afebrile. His vital signs are stable. He is fully dressed in bed, ready to go home. HEENT: Clear. NECK: Supple. CHEST: With diminished breath sounds throughout. HEART: Regular rate and rhythm. ABDOMEN: PEG site looks clean and dry. TPN is perfusing without difficulty. ASSESSMENT: 1. Status post PEG replacement, postoperative day #1, doing well. 2. Anxiety disorder. 3. Opioid dependence. 4. Chronic obstructive pulmonary disease. PLAN: The patient will be discharged home on his usual medications. He is to follow up with Dr. Jimenez in the next 3 to 4 days to reassess placement and function and he is to call Dr. Jimenez sooner if he develops any fever or pain. He is discharged in stable condition. Job ID: [id number] [facility]
--- NOTE | 2019-03-06 18:29 | PRG ---
DATE OF SERVICE: 03/03/2019 CHIEF COMPLAINT: Gastrostomy tube malfunction. SUBJECTIVE: The patient states that overnight he did not rest well. He has discomfort in his abdomen and he is anxious to get his tube replaced. OBJECTIVE: VITAL SIGNS: The patient has been afebrile. His vital signs are stable. CHEST: Shows generally diminished breath sounds throughout. HEART: Regular rate and rhythm without murmur. ABDOMEN: Shows previous gastrostomy site without drainage. Mildly tender to palpation. ASSESSMENT: 1. Percutaneous endoscopic gastrostomy tube malfunction. 2. Anxiety disorder. 3. Opioid dependence. 4. Chronic obstructive pulmonary disease. PLAN: The patient will see GI later today and go for a tube replacement in the OR. He will be continued on his usual medicines until then through IV since he is currently n.p.o. Once his tube is replaced, we will resume his usual medications per PEG. Job ID: [id number]
== END 2019-03-04 15:22 | disposition home or self-care (01) ==
LOC: ERS 12:54 → SURG A 18:51
PROVIDERS: ADMIT Specialist; ATTEND Specialist
PROC: 0D758ZZ Dilation of Esophagus, Via Natural or Artificial Opening Endoscopic (ICD-10-PCS; principal; 2019-03-03)
PROC: 0DH63UZ Insertion of Feeding Device into Stomach, Percutaneous Approach (ICD-10-PCS; 2019-03-03)
DX: K22.2 Esophageal obstruction (principal); K94.23 Gastrostomy malfunction; F41.9 Anxiety disorder, unspecified; F32.9 Major depressive disorder, single episode, unspecified; I10 Essential (primary) hypertension; K74.60 Unspecified cirrhosis of liver; J44.9 Chronic obstructive pulmonary disease, unspecified; K31.84 Gastroparesis; F11.21 Opioid dependence, in remission; F17.210 Nicotine dependence, cigarettes, uncomplicated; Z79.899 Other long term (current) drug therapy; Z98.890 Other specified postprocedural states
CPT/HCPCS: 36415; 74018; 80048; 85025; 96361; 96374; 96375; 96376; 99284; C9113; G0378; J0690; J2060; J2704; Q9963

== ENCOUNTER 2020-03-05 12:37 | Day surgery (SDC) | payer MEDICARE, MEDICAID ==
[~2020-03-05 12:37] MED LIST changes: +Ondansetron PF 4 MG/2 ML Vial ONE; +Succinylcholine 200 MG/10 ml SYRINGE FS ONE
[2020-03-05 12:51] VITALS: BP 157/70; TEMP 98.7
[2020-03-05 13:50] LABS: SARS-CoV-2 NAA Rapid Test Not Detected (NotDetected)
[2020-03-05] MEDS ORDERED: Fentanyl 100 MCG/2 ML VIAL ONE (15:45)
[2020-03-05] MEDS ORDERED: Promethazine HCl 25 MG/ML VIAL ONE (16:01)
[2020-03-05] MEDS ORDERED: hydrALAZINE 20 MG/ML VIAL ONE (16:36)
--- NOTE | 2020-03-05 17:46 | OP ---
DATE OF PROCEDURE: 03/05/2020 PROCEDURES PERFORMED: Esophagogastroduodenoscopy, dilatation, percutaneous endoscopic gastrostomy tube placement. PREPROCEDURE DIAGNOSES: 1. Dysphagia. 2. Inadvertent removal of PEG tube, unable to replace percutaneously in the office. 3. Severe chronic obstructive pulmonary disease. 4. Severe malnutrition. 5. History of chronic stricture. 6. History of chronic narcotic dependency. ANESTHESIA: TIVA, converted to general endotracheal anesthesia. POSTPROCEDURE DIAGNOSES: 1. Distal stricture at 40 from the incisural orifice and unable to pass scope, dilated over a guidewire from 7 mm to 13 mm and then with the balloon up to 15 mm. 2. PEG tube replaced in the same tract by Ponsky pull technique. 3. Otherwise normal EGD. ANTIBIOTICS: Ancef 2 g. RECOMMENDATIONS: 1. Follow up with Dr. Grimm in the office in 1 to 2 weeks. 2. Continue PPI therapy. 3. Stop smoking. 4. Consider repeat dilatation as needed. PROCEDURE IN DETAIL: After the patient was informed of the risks, benefits, and possible complications of endoscopy including perforation, reaction to medication, and aspiration, informed consent was obtained. The patient was brought to endoscopy suite, where he was sedated in gradual fashion. Once he was comfortable, a bite block was placed in the incisural orifice. The endoscope was advanced through esophagus. At the distal esophagus, a tight stricture was encountered. We dilated this over a guidewire from 8 mm, but we could not continue to dilate him as we could not keep the bite block in, we could not keep him breathing without choking and so we decided to stop and go ahead and intubate the patient. Once he was intubated, we re-began and replaced the EGD scope into the esophagus, then replaced the guidewire into the stomach and then dilated over guidewire to 12.5 mm. The scope could pass into the stomach. We were able to place the PEG tube by Ponsky pull technique through the same area without making a new fresh incision. This was done over a wire with endoscopic guidance. The duodenum was normal to the second portion. The decision was then made to go ahead and dilate the distal esophageal stricture a little bit more as it was very hard to pull the PEG all the way down to the stomach through the strictured esophagus, we did up to 15 mm. The scope was removed. The patient tolerated the procedure well, and he was brought to recovery room in stable condition. Job ID: [id number]
== END 2020-03-05 17:40 | disposition home or self-care (01) ==
LOC: SDC/OP 12:37
PROVIDERS: ATTEND Internal Medicine Gastroenterology
PROC: 0D758ZZ Dilation of Esophagus, Via Natural or Artificial Opening Endoscopic (ICD-10-PCS; principal; 2020-03-05)
PROC: 0DH63UZ Insertion of Feeding Device into Stomach, Percutaneous Approach (ICD-10-PCS; 2020-03-05)
DX: K22.2 Esophageal obstruction (principal); T85.528A Displacement of other gastrointestinal prosthetic devices, implants and grafts, initial encounter; J44.9 Chronic obstructive pulmonary disease, unspecified; K31.84 Gastroparesis; F17.200 Nicotine dependence, unspecified, uncomplicated; F11.21 Opioid dependence, in remission; E46 Unspecified protein-calorie malnutrition; Z68.1 Body mass index [BMI] 19.9 or less, adult; Z79.899 Other long term (current) drug therapy; Z20.822 Contact with and (suspected) exposure to COVID-19
CPT/HCPCS: 0240U; 43246; 43249; J0360; J0690; J2405; J2550; J2704; J3010

== ENCOUNTER 2020-04-27 19:36 | Inpatient (IN) | payer MEDICARE, MEDICAID ==
[2020-04-27 20:09] LABS: Hemoglobin 13.4 g/dL (14.0-18.0); Mean Corpuscular Hemoglobin 34.2 pg (27.0-31.0); Mean Platelet Volume 7.6 fL (7.4-10.4); Platelet Count 334 thou/uL (130-400); Red Blood Cell (RBC) Count 3.92 mill/uL (4.70-6.10)
[2020-04-27 20:23] LABS: Band 48 % (5-11); Lymphocytes 4 % (21-51); MDiff Complete? YES; Macrocytosis SLIGHT = 6-15 cells (100X) (0-5/hpf); Metamyelocyte 2 % (0-0); Monocytes 3 % (0-10); Neutrophil 42 % (42-75); Platelet Morphology Comment Appears Adequate; Reactive Lymphocytes 1 % (0-10); Reflex for Review?? YES; Vacuoles SLIGHT
[2020-04-27 20:34] LABS: ALT (SGPT) 13 U/L (8-55); AST (SGOT) 31 U/L (5-34); Albumin 3.1 g/dL (3.4-4.8); Alkaline Phosphatase 98 U/L (40-110); Anion Gap 17 mmol/L (10-20); BUN (Urea Nitrogen) 16 mg/dL (8.4-25.7); Bilirubin, Total 0.9 mg/dL (0.2-1.2); Calc. Creatinine Clearance 0 mL/min (70-130); Calcium 8.9 mg/dL (7.8-10.44); Carbon Dioxide 28 mmol/L (23-31); Chloride 85 mmol/L (98-107); Globulin 4.5 g/dL (2.4-3.5); Glucose 106 mg/dL (80-115); Potassium 3.9 mmol/L (3.5-5.1); Protein, Total 7.6 g/dL (5.8-8.1); Sodium 126 mmol/L (136-145)
[2020-04-27] MEDS ORDERED: Azithromycin 500 MG VIAL ONE (20:38)
[2020-04-27] MEDS ORDERED: Naloxone HCl 0.4 mg/ml Vial ONE (20:38)
[2020-04-27 20:54] LABS: Actual Bicarbonate (HCO3a) 27.1 mEq/L (22-28); Analyzer IN Cardio ER; Base Excess (BEa) 5.2 mEq/L (-2.0 to +3.0); CO2 Tension 31.3 mmHg (35.0-45.0); Calcium, Ionized (arterial) 1.08 mmol/L (1.12-1.30); Carboxyhemoglobin (COHb) 0.2 gm% (0.0-3.0); Hemoglobin (Hb) 12.6 g/dL (14.0-18.0); Potassium - ABG Lab 2.58 mmol/L (3.70-5.30)
[2020-04-27 20:56] LABS: pH, Arterial 7.56 (7.35-7.45)
[2020-04-27 20:57] LABS: ALV-art Gradient 207.075 mmHg (0-20); Puncture Site RRA
[2020-04-27] MEDS ORDERED: cefTRIAXone\\ROCEPHIN 2 GM VIAL ONE (21:24)
[2020-04-27 21:42] LABS: Bacteria/HPF None Seen HPF (None Seen); Bilirubin Negative (Negative); Blood, Urine Negative (Negative); Clarity Clear (Clear); Glucose, Urine (Dipstick) Normal (Negative); Ketone, Urine Negative (Negative); Leukocyte Negative Leu/uL (Negative); Nitrite Negative (Negative); Protein, Urine (Dipstick) 100 mg/dL (Neg-Trace); RBC/HPF 0-3 HPF (0-3); Specific Gravity, Urine 1.016 (1.002-1.036); Squamous Epithelial None Seen HPF (0-3); Urobilinogen 3 mg/dL (Less than 2); WBC/HPF 0-3 HPF (0-3); pH, Urine 7.5 (5.0-9.0)
[2020-04-27 21:51] LABS: Amphetamine Not Detected (NotDetected); Barbiturates Screen Not Detected (NotDetected); Benzodiazepine Screen Detected (NotDetected); Cocaine Metabolite Screen Not Detected (NotDetected); Medtox Control Line Valid? VALID (VALID); Medtox Reader # READER 1; Methadone Not Detected (NotDetected); Methamphetamine Not Detected (NotDetected); Opiate Screen Not Detected (NotDetected); Oxycodone Screen Not Detected (NotDetected); Phencyclidine (PCP) Not Detected (NotDetected); THC/Cannabinoid Screen Not Detected (NotDetected); Tricyclic Screen Not Detected (NotDetected)
[2020-04-27 21:56] LABS: SARS-CoV-2 NAA Rapid Test Not Detected (NotDetected)
[2020-04-27 22:59] LABS: Actual Bicarbonate (HCO3a) 26.2 mEq/L (22-28); Analyzer IN Cardio ER; Base Excess (BEa) 4.5 mEq/L (-2.0 to +3.0); CO2 Tension 30.1 mmHg (35.0-45.0); Calcium, Ionized (arterial) 1.07 mmol/L (1.12-1.30); Carboxyhemoglobin (COHb) 0.2 gm% (0.0-3.0); Hemoglobin (Hb) 12.6 g/dL (14.0-18.0); Potassium - ABG Lab 2.64 mmol/L (3.70-5.30)
[2020-04-27 23:02] LABS: O2 Tension (PaO2), arterial 52.9 mmHg (> 80.0); pH, Arterial 7.56 (7.35-7.45)
[2020-04-27 23:03] LABS: ALV-art Gradient 337.275 mmHg (0-20); Puncture Site RRA
[2020-04-28 00:13] LABS: Lactic Acid 2.3 mmol/L (0.5-2.2)
[2020-04-28] MEDS: Dextrose 5 % And 0.9 % NaCl 1,000 ML IV SCH ×2 (01:23→07:51)
[2020-04-28] MEDS ORDERED: Dextrose 5% in Water 1,000 ML IV PRN (08:15)
[2020-04-28] MEDS ORDERED: Insulin Regular 300 UNITS/3 ML VIAL SC PRN (08:15)
[2020-04-28] MEDS ORDERED: Dextrose 50% Abboject 50 ML SYRINGE IVP PRN (08:15)
[2020-04-28] MEDS: Sodium Chloride 0.9% 1,000 ML IV SCH ×2 (09:02→17:15)
[2020-04-28] MEDS: ALPRAZolam 0.5 MG TAB PER TUBE SCH ×2 (09:02→22:12)
[2020-04-28] MEDS: Nicotine 14 MG PATCH TOP SCH (09:03)
[2020-04-28] MEDS: Buprenorphine 8mg/Naloxone 2mg per 1 FILM SL SCH ×2 (12:52→14:57)
[2020-04-28] MEDS: Ondansetron PF 4 MG/2 ML Vial IVP PRN (15:14)
[2020-04-28] MEDS ORDERED: cefTRIAXone\\ROCEPHIN 1 GM in Sodium Chloride 0.9% 100 ML IVPB SCH (21:00)
[2020-04-28] MEDS: Azithromycin 500 MG in Sodium Chloride 0.9% 250 ML 250 ML IVPB SCH (22:11)
[2020-04-28] MEDS: traZODone HCl 50 MG TAB PER TUBE SCH (22:12)
[2020-04-29 06:05] LABS: Hemoglobin 10.8 g/dL (14.0-18.0); Mean Corpuscular HGB CONC 34.6 g/dL (32.0-36.0); Mean Corpuscular Hemoglobin 35.1 pg (27.0-31.0); Mean Platelet Volume 7.3 fL (7.4-10.4); Platelet Count 369 thou/uL (130-400); RBC Distribution Width 13.1 % (11.5-14.5); Red Blood Cell (RBC) Count 3.08 mill/uL (4.70-6.10); White Blood Cell (WBC) Count 25.3 thou/uL (4.8-10.8)
[2020-04-29 06:16] LABS: Anion Gap 10 mmol/L (10-20); BUN (Urea Nitrogen) 14 mg/dL (8.4-25.7); Calc. Creatinine Clearance 72 mL/min (70-130); Calcium 7.8 mg/dL (7.8-10.44); Carbon Dioxide 26 mmol/L (23-31); Chloride 99 mmol/L (98-107); Glucose 78 mg/dL (80-115); Sodium 132 mmol/L (136-145)
[2020-04-29 06:18] LABS: Potassium 2.9 mmol/L (3.5-5.1)
[2020-04-29 06:24] LABS: Band 40 % (5-11); Hypochromia SLIGHT = 6-15 cells (100X) (0-5/hpf); MDiff Complete? YES; Monocytes 5 % (0-10); Neutrophil 55 % (42-75); Platelet Morphology Comment Appears Adequate
[2020-04-29] MEDS: Sodium Chloride 0.9% 1,000 ML IV SCH ×2 (08:51→16:03)
[2020-04-29] MEDS: Pantoprazole 40 MG VIAL IVP SCH (08:53)
[2020-04-29] MEDS: Nicotine 14 MG PATCH TOP SCH (08:55)
[2020-04-29] MEDS: Buprenorphine 8mg/Naloxone 2mg per 1 FILM SL SCH (08:56)
[2020-04-29] MEDS: ALPRAZolam 0.5 MG TAB PER TUBE SCH ×2 (08:57→20:24)
[2020-04-29] MEDS: Ondansetron PF 4 MG/2 ML Vial IVP PRN (09:18)
[2020-04-29] MEDS: Potassium Bicarbonate/Cit Ac 20 MEQ TAB PER TUBE SCH ×2 (12:00→20:23)
[2020-04-29] MEDS: MEROPENEM 1 GM/50 ML 1 GM in Premix Bag 1 BAG IVPB SCH ×2 (15:56→23:32)
[2020-04-29] MEDS: traZODone HCl 50 MG TAB PER TUBE SCH (20:23)
[2020-04-29] MEDS: Azithromycin 500 MG in Sodium Chloride 0.9% 250 ML 250 ML IVPB SCH (20:25)
[2020-04-30] MEDS ORDERED: Haloperidol Lactate 5 MG/ML VIAL SLOW IVP PRN (00:58)
[2020-04-30] MEDS: Sodium Chloride 0.9% 1,000 ML IV SCH ×2 (05:18→14:19)
[2020-04-30] MEDS: MEROPENEM 1 GM/50 ML 1 GM in Premix Bag 1 BAG IVPB SCH ×3 (05:18→22:35)
[2020-04-30 07:21] LABS: Anion Gap 11 mmol/L (10-20); BUN (Urea Nitrogen) 11 mg/dL (8.4-25.7); Calc. Creatinine Clearance 68 mL/min (70-130); Calcium 7.5 mg/dL (7.8-10.44); Carbon Dioxide 25 mmol/L (23-31); Chloride 103 mmol/L (98-107); Glucose 134 mg/dL (80-115); Sodium 136 mmol/L (136-145)
[2020-04-30 07:24] LABS: Potassium 2.9 mmol/L (3.5-5.1)
[2020-04-30 07:26] LABS: Hemoglobin 9.7 g/dL (14.0-18.0); Mean Corpuscular Hemoglobin 33.6 pg (27.0-31.0); Mean Platelet Volume 7.4 fL (7.4-10.4); Platelet Count 404 thou/uL (130-400); RBC Distribution Width 13.1 % (11.5-14.5); Red Blood Cell (RBC) Count 2.88 mill/uL (4.70-6.10); White Blood Cell (WBC) Count 19.6 thou/uL (4.8-10.8)
[2020-04-30] MEDS: ALPRAZolam 0.5 MG TAB PER TUBE SCH ×2 (08:12→21:00)
[2020-04-30] MEDS: Tamsulosin HCl 0.4 MG CAP PO SCH ×2 (08:12→21:00)
[2020-04-30] MEDS: Potassium Bicarbonate/Cit Ac 20 MEQ TAB PER TUBE SCH ×4 (08:12→21:01)
[2020-04-30] MEDS: Pantoprazole 40 MG VIAL IVP SCH (08:12)
[2020-04-30] MEDS: Nicotine 14 MG PATCH TOP SCH (08:13)
[2020-04-30] MEDS: Buprenorphine 8mg/Naloxone 2mg per 1 FILM SL SCH (09:43)
[2020-04-30 09:58] LABS: Band 31 % (5-11); Hypochromia SLIGHT = 6-15 cells (100X) (0-5/hpf); Lymphocytes 2 % (21-51); MDiff Complete? YES; Monocytes 2 % (0-10); Neutrophil 65 % (42-75); Platelet Morphology Comment Appears Increased; Polychromasia SLIGHT = 2-3 cells (100X) (0-2/hpf)
[2020-04-30] MEDS: Ondansetron PF 4 MG/2 ML Vial IVP PRN (13:04)
[2020-04-30] MEDS: traZODone HCl 50 MG TAB PER TUBE SCH (20:58)
[2020-04-30] MEDS: Mirtazapine 30 MG TAB PER TUBE SCH (21:00)
[2020-04-30] MEDS: Azithromycin 500 MG in Sodium Chloride 0.9% 250 ML 250 ML IVPB SCH (21:00)
[2020-04-30] MEDS ORDERED: Furosemide 40 MG/4 ML VIAL ONE (22:24)
[2020-04-30] MEDS ORDERED: Furosemide 40 MG/4 ML VIAL SLOW IVP SCH (22:45)
[2020-05-01] MEDS: Sodium Chloride 0.9% 1,000 ML IV SCH ×4 (02:20→13:50)
[2020-05-01] MEDS: MEROPENEM 1 GM/50 ML 1 GM in Premix Bag 1 BAG IVPB SCH ×3 (05:26→22:48)
[2020-05-01 06:38] LABS: Hemoglobin 9.7 g/dL (14.0-18.0); Mean Corpuscular HGB CONC 33.2 g/dL (32.0-36.0); Mean Corpuscular Hemoglobin 33.7 pg (27.0-31.0); Mean Platelet Volume 7.1 fL (7.4-10.4); Platelet Count 421 thou/uL (130-400); RBC Distribution Width 13.3 % (11.5-14.5); Red Blood Cell (RBC) Count 2.89 mill/uL (4.70-6.10); White Blood Cell (WBC) Count 19.9 thou/uL (4.8-10.8)
[2020-05-01 06:54] LABS: Anion Gap 14 mmol/L (10-20); BUN (Urea Nitrogen) 11 mg/dL (8.4-25.7); Calc. Creatinine Clearance 64 mL/min (70-130); Calcium 7.9 mg/dL (7.8-10.44); Carbon Dioxide 28 mmol/L (23-31); Chloride 100 mmol/L (98-107); Glucose 150 mg/dL (80-115); Potassium 3.2 mmol/L (3.5-5.1); Sodium 139 mmol/L (136-145)
[2020-05-01 08:52] LABS: Band 36 % (5-11); Lymphocytes 3 % (21-51); MDiff Complete? YES; Macrocytosis SLIGHT = 6-15 cells (100X) (0-5/hpf); Monocytes 1 % (0-10); Neutrophil 60 % (42-75); Platelet Morphology Comment Appears Increased; Polychromasia SLIGHT = 2-3 cells (100X) (0-2/hpf); Target Cells SLIGHT = 2-5 cells (100X) (0-1/hpf)
[2020-05-01] MEDS: ALPRAZolam 0.5 MG TAB PER TUBE SCH ×2 (10:01→20:48)
[2020-05-01] MEDS: Pantoprazole 40 MG VIAL IVP SCH (10:02)
[2020-05-01] MEDS: Nicotine 14 MG PATCH TOP SCH (10:02)
[2020-05-01] MEDS: Tamsulosin HCl 0.4 MG CAP PO SCH ×2 (10:03→20:48)
[2020-05-01] MEDS: Buprenorphine 8mg/Naloxone 2mg per 1 FILM SL SCH (10:04)
[2020-05-01] MEDS: Potassium Bicarbonate/Cit Ac 20 MEQ TAB PER TUBE SCH ×3 (10:12→20:48)
[2020-05-01] MEDS ORDERED: Furosemide 40 MG/4 ML VIAL SLOW IVP SCH (18:30)
[2020-05-01] MEDS: Azithromycin 500 MG in Sodium Chloride 0.9% 250 ML 250 ML IVPB SCH (20:47)
[2020-05-01] MEDS: traZODone HCl 50 MG TAB PER TUBE SCH (20:48)
[2020-05-01] MEDS: Mirtazapine 30 MG TAB PER TUBE SCH (20:48)
[2020-05-02] MEDS: MEROPENEM 1 GM/50 ML 1 GM in Premix Bag 1 BAG IVPB SCH ×3 (06:22→23:45)
[2020-05-02 06:39] LABS: Hemoglobin 9.7 g/dL (14.0-18.0); Mean Corpuscular HGB CONC 30.9 g/dL (32.0-36.0); Mean Corpuscular Hemoglobin 31.4 pg (27.0-31.0); Mean Platelet Volume 7.1 fL (7.4-10.4); Platelet Count 414 thou/uL (130-400); RBC Distribution Width 13.4 % (11.5-14.5); Red Blood Cell (RBC) Count 3.09 mill/uL (4.70-6.10); White Blood Cell (WBC) Count 12.9 thou/uL (4.8-10.8)
[2020-05-02 06:59] LABS: Band 18 % (5-11); Lymphocytes 8 % (21-51); MDiff Complete? YES; Monocytes 5 % (0-10); Myelocyte 1 % (0-0); Neutrophil 68 % (42-75); Target Cells SLIGHT = 2-5 cells (100X) (0-1/hpf)
[2020-05-02 07:03] LABS: Anion Gap 14 mmol/L (10-20); BUN (Urea Nitrogen) 15 mg/dL (8.4-25.7); Calc. Creatinine Clearance 66 mL/min (70-130); Calcium 7.8 mg/dL (7.8-10.44); Carbon Dioxide 30 mmol/L (23-31); Chloride 100 mmol/L (98-107); Glucose 105 mg/dL (80-115); Sodium 140 mmol/L (136-145)
[2020-05-02] MEDS: Sodium Chloride 0.9% 1,000 ML IV SCH ×2 (09:16→09:25)
[2020-05-02] MEDS: Pantoprazole 40 MG VIAL IVP SCH (09:17)
[2020-05-02] MEDS: ALPRAZolam 0.5 MG TAB PER TUBE SCH ×2 (09:17→21:07)
[2020-05-02] MEDS: Tamsulosin HCl 0.4 MG CAP PO SCH ×2 (09:17→21:06)
[2020-05-02] MEDS: Furosemide 20 MG TAB PO SCH ×2 (09:17→14:37)
[2020-05-02] MEDS: Nicotine 14 MG PATCH TOP SCH ×2 (09:18→09:25)
[2020-05-02] MEDS: Potassium Bicarbonate/Cit Ac 20 MEQ TAB PER TUBE SCH ×3 (09:49→21:10)
[2020-05-02] MEDS: Acetaminophen 650 MG/20.3 ML UDCUP PER TUBE PRN ×2 (10:22→17:48)
[2020-05-02] MEDS: Buprenorphine 8mg/Naloxone 2mg per 1 FILM SL SCH (10:23)
[2020-05-02] MEDS: Scopolamine 1.5 mg/72 hour Patch TD SCH (10:24)
[2020-05-02] MEDS ORDERED: Furosemide 20 MG/2 ML VIAL SLOW IVP SCH ×2 (11:30→22:15)
[2020-05-02] MEDS: Azithromycin 500 MG in Sodium Chloride 0.9% 250 ML 250 ML IVPB SCH (21:05)
[2020-05-02] MEDS: traZODone HCl 50 MG TAB PER TUBE SCH (21:06)
[2020-05-02] MEDS: Mirtazapine 30 MG TAB PER TUBE SCH (21:07)
[2020-05-02] MEDS ORDERED: Furosemide 20 MG TAB PO SCH (22:15)
[2020-05-03] MEDS ORDERED: Furosemide 20 MG/2 ML VIAL SLOW IVP SCH (00:45)
[2020-05-03] MEDS: MEROPENEM 1 GM/50 ML 1 GM in Premix Bag 1 BAG IVPB SCH ×3 (06:23→23:08)
[2020-05-03 07:02] LABS: #Eosinphils 0.1 thou/uL (0.0-0.7); #Lymphocytes 0.9 thou/uL (1.20-3.40); #Monocytes 0.7 thou/uL (0.11-0.59); #Neutrophils 10.4 thou/uL (1.40-6.50); %Eosinophils 0.9 % (0.0-10.0); %Lymphocytes 7.7 % (21.0-51.0); %Monocytes 5.7 % (0.0-10.0); %Neutrophils 85.6 % (42.0-75.0); Hemoglobin 9.3 g/dL (14.0-18.0); Mean Corpuscular HGB CONC 31.8 g/dL (32.0-36.0); Mean Corpuscular Hemoglobin 32.7 pg (27.0-31.0); Mean Platelet Volume 7.5 fL (7.4-10.4); Platelet Count 455 thou/uL (130-400); RBC Distribution Width 13.4 % (11.5-14.5); Red Blood Cell (RBC) Count 2.85 mill/uL (4.70-6.10); White Blood Cell (WBC) Count 12.1 thou/uL (4.8-10.8)
[2020-05-03 07:14] LABS: Anion Gap 17 mmol/L (10-20); BUN (Urea Nitrogen) 20 mg/dL (8.4-25.7); Calc. Creatinine Clearance 62 mL/min (70-130); Calcium 8.1 mg/dL (7.8-10.44); Carbon Dioxide 29 mmol/L (23-31); Chloride 101 mmol/L (98-107); Glucose 96 mg/dL (80-115); Potassium 3.8 mmol/L (3.5-5.1); Sodium 143 mmol/L (136-145)
[2020-05-03] MEDS: Tamsulosin HCl 0.4 MG CAP PO SCH ×2 (08:02→20:09)
[2020-05-03] MEDS: ALPRAZolam 0.5 MG TAB PER TUBE SCH ×2 (08:02→20:09)
[2020-05-03] MEDS: Potassium Bicarbonate/Cit Ac 20 MEQ TAB PER TUBE SCH ×3 (08:02→21:54)
[2020-05-03] MEDS: Nicotine 14 MG PATCH TOP SCH (08:03)
[2020-05-03] MEDS: Pantoprazole 40 MG VIAL IVP SCH (08:03)
[2020-05-03] MEDS: Buprenorphine 8mg/Naloxone 2mg per 1 FILM SL SCH ×2 (08:17→23:03)
[2020-05-03] MEDS: Ondansetron PF 4 MG/2 ML Vial IVP PRN (08:25)
[2020-05-03] MEDS ORDERED: Furosemide 20 MG TAB PO SCH (09:00)
[2020-05-03] MEDS: Furosemide 20 MG TAB PO SCH (09:51)
[2020-05-03] MEDS: Furosemide 40 MG TAB PO SCH (14:08)
[2020-05-03] MEDS: traZODone HCl 50 MG TAB PER TUBE SCH (20:10)
[2020-05-03] MEDS: Mirtazapine 30 MG TAB PER TUBE SCH (20:10)
[2020-05-03] MEDS: Fluticasone Propionate Nasal Spray 16 gm Bottle NASAL SCH (20:12)
[2020-05-03] MEDS: Azithromycin 500 MG in Sodium Chloride 0.9% 250 ML 250 ML IVPB SCH (21:00)
[2020-05-04] MEDS: MEROPENEM 1 GM/50 ML 1 GM in Premix Bag 1 BAG IVPB SCH ×3 (05:26→22:00)
[2020-05-04] MEDS: Potassium Bicarbonate/Cit Ac 20 MEQ TAB PER TUBE SCH ×3 (07:49→21:52)
[2020-05-04] MEDS: Furosemide 20 MG TAB PO SCH (07:49)
[2020-05-04] MEDS: Nicotine 14 MG PATCH TOP SCH (07:50)
[2020-05-04] MEDS: Fluticasone Propionate Nasal Spray 16 gm Bottle NASAL SCH ×2 (07:50→21:51)
[2020-05-04] MEDS: ALPRAZolam 0.5 MG TAB PER TUBE SCH ×2 (07:50→20:34)
[2020-05-04] MEDS: Pantoprazole 40 MG VIAL IVP SCH (07:50)
[2020-05-04] MEDS: Tamsulosin HCl 0.4 MG CAP PO SCH ×2 (07:50→20:34)
[2020-05-04] MEDS: Sodium Chloride 0.9% 1,000 ML IV SCH (07:51)
[2020-05-04] MEDS: Ondansetron PF 4 MG/2 ML Vial IVP PRN (08:10)
[2020-05-04] MEDS: Buprenorphine 8mg/Naloxone 2mg per 1 FILM SL SCH ×2 (09:55→21:52)
[2020-05-04] MEDS: Albumin 25% 25 GM/100 ML BOT IVPB SCH ×2 (11:46→20:34)
[2020-05-04] MEDS: Furosemide 40 MG TAB PO SCH (15:50)
[2020-05-04] MEDS: traZODone HCl 50 MG TAB PER TUBE SCH (20:34)
[2020-05-04] MEDS: Mirtazapine 30 MG TAB PER TUBE SCH (20:34)
[2020-05-04] MEDS: Azithromycin 500 MG in Sodium Chloride 0.9% 250 ML 250 ML IVPB SCH (22:45)
[2020-05-04] MEDS ORDERED: Furosemide 40 MG/4 ML VIAL ONE (22:59)
[2020-05-05] MEDS: MEROPENEM 1 GM/50 ML 1 GM in Premix Bag 1 BAG IVPB SCH ×3 (02:33→15:40)
[2020-05-05] MEDS: Albumin 25% 25 GM/100 ML BOT IVPB SCH (04:25)
[2020-05-05 04:29] LABS: ALT (SGPT) 17 U/L (8-55); AST (SGOT) 32 U/L (5-34); Albumin 3.4 g/dL (3.4-4.8); Alkaline Phosphatase 90 U/L (40-110); Anion Gap 14 mmol/L (10-20); BUN (Urea Nitrogen) 29 mg/dL (8.4-25.7); Bilirubin, Total 0.8 mg/dL (0.2-1.2); Calc. Creatinine Clearance 50 mL/min (70-130); Calcium 9.1 mg/dL (7.8-10.44); Carbon Dioxide 34 mmol/L (23-31); Chloride 99 mmol/L (98-107); Globulin 4.5 g/dL (2.4-3.5); Glucose 116 mg/dL (80-115); Potassium 4.3 mmol/L (3.5-5.1); Protein, Total 7.9 g/dL (5.8-8.1); Sodium 143 mmol/L (136-145)
[2020-05-05 05:23] LABS: #Eosinphils 0.1 thou/uL (0.0-0.7); #Lymphocytes 0.7 thou/uL (1.20-3.40); #Monocytes 0.6 thou/uL (0.11-0.59); #Neutrophils 12.4 thou/uL (1.40-6.50); %Eosinophils 0.5 % (0.0-10.0); %Lymphocytes 5.1 % (21.0-51.0); %Monocytes 4.5 % (0.0-10.0); %Neutrophils 89.8 % (42.0-75.0); Hemoglobin 9.7 g/dL (14.0-18.0); MDiff Complete? YES; Macrocytosis SLIGHT = 6-15 cells (100X) (0-5/hpf); Mean Corpuscular HGB CONC 32.7 g/dL (32.0-36.0); Mean Corpuscular Hemoglobin 33.5 pg (27.0-31.0); Mean Platelet Volume 9.6 fL (7.4-10.4); Platelet Count 364 thou/uL (130-400); RBC Distribution Width 13.7 % (11.5-14.5); Target Cells SLIGHT = 2-5 cells (100X) (0-1/hpf); White Blood Cell (WBC) Count 13.8 thou/uL (4.8-10.8)
[2020-05-05] MEDS: Nicotine 14 MG PATCH TOP SCH (08:56)
[2020-05-05] MEDS: Scopolamine 1.5 mg/72 hour Patch TD SCH (08:56)
[2020-05-05] MEDS: Furosemide 20 MG TAB PO SCH (08:57)
[2020-05-05] MEDS: Pantoprazole 40 MG VIAL IVP SCH (08:57)
[2020-05-05] MEDS: Tamsulosin HCl 0.4 MG CAP PO SCH ×2 (08:57→20:58)
[2020-05-05] MEDS: ALPRAZolam 0.5 MG TAB PER TUBE SCH ×2 (08:57→20:59)
[2020-05-05] MEDS: Potassium Bicarbonate/Cit Ac 20 MEQ TAB PER TUBE SCH ×3 (08:57→20:58)
[2020-05-05] MEDS: Fluticasone Propionate Nasal Spray 16 gm Bottle NASAL SCH ×2 (08:58→23:27)
[2020-05-05] MEDS: Buprenorphine 8mg/Naloxone 2mg per 1 FILM SL SCH ×2 (09:15→21:00)
[2020-05-05] MEDS: Furosemide 40 MG TAB PO SCH (15:39)
[2020-05-05] MEDS: Azithromycin 500 MG in Sodium Chloride 0.9% 250 ML 250 ML IVPB SCH (20:56)
[2020-05-05] MEDS: traZODone HCl 50 MG TAB PER TUBE SCH (20:57)
[2020-05-05] MEDS: Mirtazapine 30 MG TAB PER TUBE SCH (20:59)
[2020-05-06] MEDS: MEROPENEM 1 GM/50 ML 1 GM in Premix Bag 1 BAG IVPB SCH ×3 (01:52→15:03)
[2020-05-06 04:29] LABS: #Lymphocytes 1.2 thou/uL (1.20-3.40); #Monocytes 0.6 thou/uL (0.11-0.59); #Neutrophils 7.3 thou/uL (1.40-6.50); %Basophils 0.2 % (0.0-1.0); %Eosinophils 0.5 % (0.0-10.0); %Lymphocytes 13.3 % (21.0-51.0); %Monocytes 6.7 % (0.0-10.0); %Neutrophils 79.3 % (42.0-75.0); Anion Gap 15 mmol/L (10-20); BUN (Urea Nitrogen) 40 mg/dL (8.4-25.7); Calc. Creatinine Clearance 43 mL/min (70-130); Calcium 8.9 mg/dL (7.8-10.44); Carbon Dioxide 33 mmol/L (23-31); Chloride 102 mmol/L (98-107); Glucose 111 mg/dL (80-115); Hemoglobin 8.5 g/dL (14.0-18.0); Mean Corpuscular HGB CONC 33.2 g/dL (32.0-36.0); Mean Corpuscular Hemoglobin 33.7 pg (27.0-31.0); Mean Platelet Volume 7.7 fL (7.4-10.4); Platelet Count 640 thou/uL (130-400); Potassium 4.4 mmol/L (3.5-5.1); RBC Distribution Width 13.7 % (11.5-14.5); Red Blood Cell (RBC) Count 2.52 mill/uL (4.70-6.10); Sodium 146 mmol/L (136-145); White Blood Cell (WBC) Count 9.3 thou/uL (4.8-10.8)
[2020-05-06] MEDS: Metoclopramide 10 MG/10 ML UDCUP PER TUBE SCH ×4 (09:34→21:06)
[2020-05-06] MEDS: Tamsulosin HCl 0.4 MG CAP PO SCH ×2 (09:34→21:07)
[2020-05-06] MEDS: Potassium Bicarbonate/Cit Ac 20 MEQ TAB PER TUBE SCH ×3 (09:34→21:07)
[2020-05-06] MEDS: Nicotine 14 MG PATCH TOP SCH (09:34)
[2020-05-06] MEDS: Furosemide 20 MG TAB PO SCH (09:34)
[2020-05-06] MEDS: Pantoprazole 40 MG VIAL IVP SCH (09:34)
[2020-05-06] MEDS: ALPRAZolam 0.5 MG TAB PER TUBE SCH ×2 (09:34→21:07)
[2020-05-06] MEDS: Buprenorphine 8mg/Naloxone 2mg per 1 FILM SL SCH ×2 (09:41→21:27)
[2020-05-06 10:51] VITALS: BMI 13.2
[2020-05-06] MEDS: Fluticasone Propionate Nasal Spray 16 gm Bottle NASAL SCH ×2 (11:42→21:08)
[2020-05-06] MEDS: Furosemide 40 MG TAB PO SCH (14:55)
[2020-05-06] MEDS: Azithromycin 500 MG in Sodium Chloride 0.9% 250 ML 250 ML IVPB SCH (20:40)
[2020-05-06] MEDS: traZODone HCl 50 MG TAB PER TUBE SCH (21:06)
[2020-05-06] MEDS: Mirtazapine 30 MG TAB PER TUBE SCH (21:07)
[2020-05-07 01:41] LABS: Actual Bicarbonate (HCO3a) 37.2 mEq/L (22-28); Base Excess (BEa) 12.5 mEq/L (-2.0 to +3.0); Calcium, Ionized (arterial) 1.22 mmol/L (1.12-1.30); Carboxyhemoglobin (COHb) 0.3 gm% (0.0-3.0); Hemoglobin (Hb) 9.4 g/dL (14.0-18.0); Potassium - ABG Lab 4.55 mmol/L (3.70-5.30); pH, Arterial 7.49 (7.35-7.45)
[2020-05-07 01:43] LABS: O2 Tension (PaO2), arterial 49.2 mmHg (> 80.0)
[2020-05-07 01:44] LABS: Puncture Site LRA
[2020-05-07] MEDS ORDERED: Furosemide 40 MG/4 ML VIAL SLOW IVP SCH (02:15)
[2020-05-07] MEDS: MEROPENEM 1 GM/50 ML 1 GM in Premix Bag 1 BAG IVPB SCH ×3 (02:26→16:59)
[2020-05-07 04:11] LABS: #Eosinphils 0.1 thou/uL (0.0-0.7); #Lymphocytes 0.8 thou/uL (1.20-3.40); #Monocytes 0.7 thou/uL (0.11-0.59); #Neutrophils 12.5 thou/uL (1.40-6.50); %Basophils 0.2 % (0.0-1.0); %Eosinophils 0.5 % (0.0-10.0); %Lymphocytes 5.9 % (21.0-51.0); %Neutrophils 88.5 % (42.0-75.0); Hemoglobin 9.3 g/dL (14.0-18.0); Mean Corpuscular HGB CONC 32.8 g/dL (32.0-36.0); Mean Corpuscular Hemoglobin 33.8 pg (27.0-31.0); Mean Platelet Volume 8.5 fL (7.4-10.4); Platelet Count 599 thou/uL (130-400); RBC Distribution Width 13.8 % (11.5-14.5); Red Blood Cell (RBC) Count 2.76 mill/uL (4.70-6.10); White Blood Cell (WBC) Count 14.1 thou/uL (4.8-10.8)
[2020-05-07 04:20] LABS: Anion Gap 17 mmol/L (10-20); BUN (Urea Nitrogen) 54 mg/dL (8.4-25.7); Calc. Creatinine Clearance 28 mL/min (70-130); Calcium 9.4 mg/dL (7.8-10.44); Carbon Dioxide 33 mmol/L (23-31); Chloride 107 mmol/L (98-107); Glucose 116 mg/dL (80-115); Potassium 4.9 mmol/L (3.5-5.1); Sodium 152 mmol/L (136-145)
[2020-05-07] MEDS: Pantoprazole 40 MG VIAL IVP SCH (09:41)
[2020-05-07] MEDS: Metoclopramide 10 MG/10 ML UDCUP PER TUBE SCH ×4 (09:41→21:48)
[2020-05-07] MEDS: Nicotine 14 MG PATCH TOP SCH (09:41)
[2020-05-07] MEDS: ALPRAZolam 0.5 MG TAB PER TUBE SCH ×2 (09:41→21:49)
[2020-05-07] MEDS: Fluticasone Propionate Nasal Spray 16 gm Bottle NASAL SCH ×2 (09:41→22:14)
[2020-05-07] MEDS: Potassium Bicarbonate/Cit Ac 20 MEQ TAB PER TUBE SCH ×3 (09:41→21:50)
[2020-05-07] MEDS: Furosemide 20 MG TAB PO SCH (09:41)
[2020-05-07] MEDS: Tamsulosin HCl 0.4 MG CAP PO SCH ×2 (09:41→21:50)
[2020-05-07] MEDS: Buprenorphine 8mg/Naloxone 2mg per 1 FILM SL SCH ×2 (10:00→22:13)
[2020-05-07] MEDS: Furosemide 40 MG TAB PO SCH (15:59)
[2020-05-07] MEDS: traZODone HCl 50 MG TAB PER TUBE SCH (21:49)
[2020-05-07] MEDS: Mirtazapine 30 MG TAB PER TUBE SCH (21:50)
[2020-05-07] MEDS: Azithromycin 500 MG in Sodium Chloride 0.9% 250 ML 250 ML IVPB SCH (21:50)
[2020-05-08 04:19] LABS: Anion Gap 17 mmol/L (10-20); BUN (Urea Nitrogen) 58 mg/dL (8.4-25.7); Calc. Creatinine Clearance 28 mL/min (70-130); Calcium 9.5 mg/dL (7.8-10.44); Carbon Dioxide 32 mmol/L (23-31); Chloride 108 mmol/L (98-107); Glucose 109 mg/dL (80-115); Potassium 5.1 mmol/L (3.5-5.1); Sodium 152 mmol/L (136-145)
[2020-05-08 04:25] LABS: #Eosinphils 0.2 thou/uL (0.0-0.7); #Lymphocytes 1.2 thou/uL (1.20-3.40); #Monocytes 0.8 thou/uL (0.11-0.59); #Neutrophils 8.7 thou/uL (1.40-6.50); %Basophils 0.4 % (0.0-1.0); %Eosinophils 1.7 % (0.0-10.0); %Lymphocytes 11.1 % (21.0-51.0); %Monocytes 7.3 % (0.0-10.0); %Neutrophils 79.5 % (42.0-75.0); Hemoglobin 9.7 g/dL (14.0-18.0); Mean Corpuscular HGB CONC 32.7 g/dL (32.0-36.0); Mean Corpuscular Hemoglobin 34.1 pg (27.0-31.0); Platelet Count 639 thou/uL (130-400); Red Blood Cell (RBC) Count 2.84 mill/uL (4.70-6.10); White Blood Cell (WBC) Count 10.9 thou/uL (4.8-10.8)
[2020-05-08] MEDS: MEROPENEM 1 GM/50 ML 1 GM in Premix Bag 1 BAG IVPB SCH ×3 (05:27→15:05)
[2020-05-08] MEDS ORDERED: Sodium Chloride 0.9% 1,000 ML IV SCH (08:00)
[2020-05-08] MEDS: Sodium Chloride 0.45% 1,000 ML IV SCH ×2 (09:00→20:06)
[2020-05-08] MEDS: Scopolamine 1.5 mg/72 hour Patch TD SCH (09:54)
[2020-05-08] MEDS: Tamsulosin HCl 0.4 MG CAP PO SCH ×2 (09:54→20:08)
[2020-05-08] MEDS: ALPRAZolam 0.5 MG TAB PER TUBE SCH (09:54)
[2020-05-08] MEDS: Buprenorphine 8mg/Naloxone 2mg per 1 FILM SL SCH ×2 (09:55→20:13)
[2020-05-08] MEDS: Potassium Bicarbonate/Cit Ac 20 MEQ TAB PER TUBE SCH ×3 (09:55→20:07)
[2020-05-08] MEDS: Pantoprazole 40 MG VIAL IVP SCH (09:55)
[2020-05-08] MEDS: Metoclopramide 10 MG/10 ML UDCUP PER TUBE SCH ×4 (09:55→20:07)
[2020-05-08] MEDS: Furosemide 20 MG TAB PO SCH (09:55)
[2020-05-08] MEDS: Nicotine 14 MG PATCH TOP SCH (09:55)
[2020-05-08] MEDS: Fluticasone Propionate Nasal Spray 16 gm Bottle NASAL SCH (09:58)
[2020-05-08] MEDS: Furosemide 40 MG TAB PO SCH (15:03)
[2020-05-08] MEDS: Acetaminophen 650 MG/20.3 ML UDCUP PER TUBE PRN ×2 (15:15→20:06)
[2020-05-08] MEDS: Azithromycin 500 MG in Sodium Chloride 0.9% 250 ML 250 ML IVPB SCH (20:06)
[2020-05-08] MEDS: Mirtazapine 30 MG TAB PER TUBE SCH (20:08)
[2020-05-08] MEDS: traZODone HCl 50 MG TAB PER TUBE SCH (20:08)
[2020-05-09] MEDS: MEROPENEM 1 GM/50 ML 1 GM in Premix Bag 1 BAG IVPB SCH ×3 (02:34→15:42)
[2020-05-09] MEDS: Fluticasone Propionate Nasal Spray 16 gm Bottle NASAL SCH ×2 (02:35→10:12)
[2020-05-09 04:07] LABS: #Basophils 0.1 thou/uL (0.0-0.2); #Eosinphils 0.4 thou/uL (0.0-0.7); #Lymphocytes 1.1 thou/uL (1.20-3.40); #Monocytes 0.7 thou/uL (0.11-0.59); #Neutrophils 7.6 thou/uL (1.40-6.50); %Basophils 0.8 % (0.0-1.0); %Eosinophils 3.8 % (0.0-10.0); %Lymphocytes 11.5 % (21.0-51.0); %Monocytes 6.9 % (0.0-10.0); %Neutrophils 76.9 % (42.0-75.0); Hemoglobin 9.3 g/dL (14.0-18.0); Mean Corpuscular HGB CONC 30.6 g/dL (32.0-36.0); Mean Corpuscular Hemoglobin 32.2 pg (27.0-31.0); Mean Platelet Volume 8.4 fL (7.4-10.4); Platelet Count 556 thou/uL (130-400); RBC Distribution Width 14.1 % (11.5-14.5); White Blood Cell (WBC) Count 9.8 thou/uL (4.8-10.8)
[2020-05-09 04:19] LABS: Anion Gap 14 mmol/L (10-20); BUN (Urea Nitrogen) 60 mg/dL (8.4-25.7); Calc. Creatinine Clearance 27 mL/min (70-130); Carbon Dioxide 30 mmol/L (23-31); Chloride 110 mmol/L (98-107); Glucose 108 mg/dL (80-115); Potassium 4.9 mmol/L (3.5-5.1); Sodium 149 mmol/L (136-145)
[2020-05-09] MEDS: Sodium Chloride 0.45% 1,000 ML IV SCH ×2 (06:47→12:00)
[2020-05-09] MEDS: Buprenorphine 8mg/Naloxone 2mg per 1 FILM SL SCH ×2 (10:09→20:07)
[2020-05-09] MEDS: Acetaminophen 650 MG/20.3 ML UDCUP PER TUBE PRN ×2 (10:10→20:05)
[2020-05-09] MEDS: Tamsulosin HCl 0.4 MG CAP PO SCH ×2 (10:11→20:05)
[2020-05-09] MEDS: Pantoprazole 40 MG VIAL IVP SCH (10:11)
[2020-05-09] MEDS: Potassium Bicarbonate/Cit Ac 20 MEQ TAB PER TUBE SCH ×3 (10:11→20:05)
[2020-05-09] MEDS: Metoclopramide 10 MG/10 ML UDCUP PER TUBE SCH ×4 (10:11→20:04)
[2020-05-09] MEDS: Nicotine 14 MG PATCH TOP SCH (10:12)
[2020-05-09] MEDS: Furosemide 20 MG TAB PO SCH (10:12)
[2020-05-09] MEDS: Furosemide 40 MG TAB PO SCH (15:41)
[2020-05-09] MEDS: Mirtazapine 30 MG TAB PER TUBE SCH ×2 (20:04→20:05)
[2020-05-09] MEDS: traZODone HCl 50 MG TAB PER TUBE SCH (20:04)
[2020-05-09] MEDS: Azithromycin 500 MG in Sodium Chloride 0.9% 250 ML 250 ML IVPB SCH (20:22)
[2020-05-10 03:36] LABS: #Eosinphils 0.4 thou/uL (0.0-0.7); #Lymphocytes 1.2 thou/uL (1.20-3.40); #Monocytes 0.5 thou/uL (0.11-0.59); #Neutrophils 5.8 thou/uL (1.40-6.50); %Basophils 0.5 % (0.0-1.0); %Eosinophils 5.4 % (0.0-10.0); %Lymphocytes 14.9 % (21.0-51.0); %Monocytes 6.7 % (0.0-10.0); %Neutrophils 72.5 % (42.0-75.0); Mean Corpuscular HGB CONC 33.5 g/dL (32.0-36.0); Mean Corpuscular Hemoglobin 34.9 pg (27.0-31.0); Mean Platelet Volume 7.8 fL (7.4-10.4); Platelet Count 556 thou/uL (130-400); Red Blood Cell (RBC) Count 2.58 mill/uL (4.70-6.10)
[2020-05-10] MEDS: Fluticasone Propionate Nasal Spray 16 gm Bottle NASAL SCH ×3 (03:46→20:43)
[2020-05-10 04:00] LABS: Anion Gap 11 mmol/L (10-20); BUN (Urea Nitrogen) 47 mg/dL (8.4-25.7); Calc. Creatinine Clearance 31 mL/min (70-130); Calcium 8.6 mg/dL (7.8-10.44); Carbon Dioxide 31 mmol/L (23-31); Chloride 108 mmol/L (98-107); Glucose 94 mg/dL (80-115); Potassium 4.2 mmol/L (3.5-5.1); Sodium 146 mmol/L (136-145)
[2020-05-10] MEDS: MEROPENEM 1 GM/50 ML 1 GM in Premix Bag 1 BAG IVPB SCH ×3 (04:34→17:10)
[2020-05-10] MEDS: Sodium Chloride 0.45% 1,000 ML IV SCH ×4 (04:35→20:43)
[2020-05-10] MEDS: Acetaminophen 650 MG/20.3 ML UDCUP PER TUBE PRN ×3 (04:40→17:11)
[2020-05-10] MEDS: Buprenorphine 8mg/Naloxone 2mg per 1 FILM SL SCH ×2 (10:22→20:44)
[2020-05-10] MEDS: Metoclopramide 10 MG/10 ML UDCUP PER TUBE SCH ×4 (10:25→20:47)
[2020-05-10] MEDS: Furosemide 20 MG TAB PO SCH (10:25)
[2020-05-10] MEDS: Tamsulosin HCl 0.4 MG CAP PO SCH ×2 (10:25→20:47)
[2020-05-10] MEDS: Potassium Bicarbonate/Cit Ac 20 MEQ TAB PER TUBE SCH ×3 (10:26→20:47)
[2020-05-10] MEDS: Pantoprazole 40 MG VIAL IVP SCH (10:26)
[2020-05-10] MEDS: Nicotine 14 MG PATCH TOP SCH (10:26)
[2020-05-10] MEDS: Furosemide 40 MG TAB PO SCH (17:11)
[2020-05-10] MEDS: Azithromycin 500 MG in Sodium Chloride 0.9% 250 ML 250 ML IVPB SCH (20:42)
[2020-05-10] MEDS: traZODone HCl 50 MG TAB PER TUBE SCH (20:46)
[2020-05-11] MEDS: Sodium Chloride 0.45% 1,000 ML IV SCH ×3 (01:42→20:33)
[2020-05-11] MEDS: MEROPENEM 1 GM/50 ML 1 GM in Premix Bag 1 BAG IVPB SCH ×3 (01:42→16:51)
[2020-05-11 04:23] LABS: Anion Gap 11 mmol/L (10-20); BUN (Urea Nitrogen) 40 mg/dL (8.4-25.7); Calc. Creatinine Clearance 34 mL/min (70-130); Calcium 8.3 mg/dL (7.8-10.44); Carbon Dioxide 31 mmol/L (23-31); Chloride 108 mmol/L (98-107); Glucose 157 mg/dL (80-115); Sodium 146 mmol/L (136-145)
[2020-05-11 04:33] LABS: Hemoglobin 8.9 g/dL (14.0-18.0); Mean Corpuscular HGB CONC 31.1 g/dL (32.0-36.0); Mean Platelet Volume 8.7 fL (7.4-10.4); Platelet Count 515 thou/uL (130-400); RBC Distribution Width 14.1 % (11.5-14.5); Red Blood Cell (RBC) Count 2.77 mill/uL (4.70-6.10); White Blood Cell (WBC) Count 6.8 thou/uL (4.8-10.8)
[2020-05-11 04:59] LABS: #Eosinphils 0.4 thou/uL (0.0-0.7); #Lymphocytes 1.2 thou/uL (1.20-3.40); #Monocytes 0.6 thou/uL (0.11-0.59); #Neutrophils 5.3 thou/uL (1.40-6.50); %Basophils 0.1 % (0.0-1.0); %Eosinophils 5.5 % (0.0-10.0); %Lymphocytes 15.6 % (21.0-51.0); %Monocytes 7.5 % (0.0-10.0); %Neutrophils 71.2 % (42.0-75.0); Band 13 % (5-11); Eosinophils 6 % (0-10); Lymphocytes 16 % (21-51); MDiff Complete? YES; Monocytes 8 % (0-10); Neutrophil 57 % (42-75); Platelet Morphology Comment Appears Increased
[2020-05-11] MEDS: Metoclopramide 10 MG/10 ML UDCUP PER TUBE SCH ×4 (08:55→20:17)
[2020-05-11] MEDS: Potassium Bicarbonate/Cit Ac 20 MEQ TAB PER TUBE SCH ×3 (08:55→20:16)
[2020-05-11] MEDS: Pantoprazole 40 MG VIAL IVP SCH (08:55)
[2020-05-11] MEDS: Scopolamine 1.5 mg/72 hour Patch TD SCH (08:56)
[2020-05-11] MEDS: Nicotine 14 MG PATCH TOP SCH (08:56)
[2020-05-11] MEDS: Furosemide 20 MG TAB PO SCH (08:56)
[2020-05-11] MEDS: Tamsulosin HCl 0.4 MG CAP PO SCH ×2 (08:56→20:16)
[2020-05-11] MEDS: Fluticasone Propionate Nasal Spray 16 gm Bottle NASAL SCH ×2 (08:57→20:26)
[2020-05-11] MEDS: Buprenorphine 8mg/Naloxone 2mg per 1 FILM SL SCH ×2 (11:31→20:26)
[2020-05-11] MEDS: Furosemide 40 MG TAB PO SCH (13:56)
[2020-05-11] MEDS: Mirtazapine 30 MG TAB PER TUBE SCH (20:17)
[2020-05-11] MEDS: traZODone HCl 50 MG TAB PER TUBE SCH (20:17)
[2020-05-12] MEDS: MEROPENEM 1 GM/50 ML 1 GM in Premix Bag 1 BAG IVPB SCH (01:53)
[2020-05-12] MEDS: Sodium Chloride 0.45% 1,000 ML IV SCH ×3 (04:27→20:00)
[2020-05-12 06:02] LABS: #Eosinphils 0.5 thou/uL (0.0-0.7); #Lymphocytes 1.2 thou/uL (1.20-3.40); #Monocytes 0.6 thou/uL (0.11-0.59); #Neutrophils 5.1 thou/uL (1.40-6.50); %Basophils 0.2 % (0.0-1.0); %Lymphocytes 16.2 % (21.0-51.0); %Monocytes 8.2 % (0.0-10.0); %Neutrophils 68.3 % (42.0-75.0); Hemoglobin 8.4 g/dL (14.0-18.0); Mean Corpuscular HGB CONC 32.7 g/dL (32.0-36.0); Mean Corpuscular Hemoglobin 33.7 pg (27.0-31.0); Mean Platelet Volume 8.5 fL (7.4-10.4); Platelet Count 455 thou/uL (130-400); Red Blood Cell (RBC) Count 2.49 mill/uL (4.70-6.10); White Blood Cell (WBC) Count 7.5 thou/uL (4.8-10.8)
[2020-05-12 06:22] LABS: Anion Gap 12 mmol/L (10-20); BUN (Urea Nitrogen) 31 mg/dL (8.4-25.7); Calc. Creatinine Clearance 45 mL/min (70-130); Calcium 8.2 mg/dL (7.8-10.44); Carbon Dioxide 29 mmol/L (23-31); Chloride 104 mmol/L (98-107); Glucose 97 mg/dL (80-115); Potassium 3.8 mmol/L (3.5-5.1); Sodium 141 mmol/L (136-145)
[2020-05-12] MEDS: Fluticasone Propionate Nasal Spray 16 gm Bottle NASAL SCH ×2 (08:09→21:44)
[2020-05-12] MEDS: Buprenorphine 8mg/Naloxone 2mg per 1 FILM SL SCH ×2 (08:09→21:44)
[2020-05-12] MEDS: Potassium Bicarbonate/Cit Ac 20 MEQ TAB PER TUBE SCH ×3 (08:10→21:43)
[2020-05-12] MEDS: Metoclopramide 10 MG/10 ML UDCUP PER TUBE SCH ×4 (08:10→21:43)
[2020-05-12] MEDS: Tamsulosin HCl 0.4 MG CAP PO SCH ×2 (08:10→21:43)
[2020-05-12] MEDS: Pantoprazole 40 MG VIAL IVP SCH (08:10)
[2020-05-12] MEDS: Furosemide 20 MG TAB PO SCH (08:10)
[2020-05-12] MEDS: Nicotine 14 MG PATCH TOP SCH (11:01)
[2020-05-12] MEDS: Furosemide 40 MG TAB PO SCH (14:37)
[2020-05-12] MEDS: Mirtazapine 30 MG TAB PER TUBE SCH (21:43)
[2020-05-12] MEDS: traZODone HCl 50 MG TAB PER TUBE SCH (21:43)
[2020-05-13 06:21] LABS: #Eosinphils 0.4 thou/uL (0.0-0.7); #Lymphocytes 1.5 thou/uL (1.20-3.40); #Monocytes 0.8 thou/uL (0.11-0.59); #Neutrophils 4.4 thou/uL (1.40-6.50); %Basophils 0.6 % (0.0-1.0); %Eosinophils 5.7 % (0.0-10.0); %Lymphocytes 20.9 % (21.0-51.0); %Monocytes 11.5 % (0.0-10.0); %Neutrophils 61.3 % (42.0-75.0); Hemoglobin 7.9 g/dL (14.0-18.0); Mean Corpuscular HGB CONC 32.9 g/dL (32.0-36.0); Mean Corpuscular Hemoglobin 33.5 pg (27.0-31.0); Mean Platelet Volume 8.5 fL (7.4-10.4); Platelet Count 383 thou/uL (130-400); Red Blood Cell (RBC) Count 2.37 mill/uL (4.70-6.10); White Blood Cell (WBC) Count 7.3 thou/uL (4.8-10.8)
[2020-05-13] MEDS: Sodium Chloride 0.45% 1,000 ML IV SCH ×3 (06:53→20:17)
[2020-05-13] MEDS ORDERED: Iopamidol-370 76% 500 ML 1 ML ONE (08:25)
[2020-05-13] MEDS: Nicotine 14 MG PATCH TOP SCH (09:28)
[2020-05-13] MEDS: Buprenorphine 8mg/Naloxone 2mg per 1 FILM PER TUBE SCH ×2 (09:28→20:15)
[2020-05-13] MEDS: Tamsulosin HCl 0.4 MG CAP PO SCH ×2 (09:30→20:14)
[2020-05-13] MEDS: Furosemide 20 MG TAB PO SCH (09:30)
[2020-05-13] MEDS: Fluticasone Propionate Nasal Spray 16 gm Bottle NASAL SCH ×2 (09:30→20:16)
[2020-05-13] MEDS: Pantoprazole 40 MG VIAL IVP SCH (09:30)
[2020-05-13] MEDS: Potassium Bicarbonate/Cit Ac 20 MEQ TAB PER TUBE SCH ×3 (09:30→20:14)
[2020-05-13] MEDS: Metoclopramide 10 MG/10 ML UDCUP PER TUBE SCH ×4 (09:30→20:14)
[2020-05-13] MEDS: Furosemide 40 MG TAB PO SCH (14:38)
[2020-05-13] MEDS: Mirtazapine 30 MG TAB PER TUBE SCH (20:14)
[2020-05-13] MEDS: traZODone HCl 50 MG TAB PER TUBE SCH (20:14)
[2020-05-14] MEDS: Sodium Chloride 0.45% 1,000 ML IV SCH ×3 (04:00→21:06)
[2020-05-14] MEDS: Buprenorphine 8mg/Naloxone 2mg per 1 FILM PER TUBE SCH ×2 (09:20→21:07)
[2020-05-14] MEDS: Potassium Bicarbonate/Cit Ac 20 MEQ TAB PER TUBE SCH ×3 (09:21→21:11)
[2020-05-14] MEDS: Metoclopramide 10 MG/10 ML UDCUP PER TUBE SCH ×4 (09:21→21:12)
[2020-05-14] MEDS: Furosemide 20 MG TAB PO SCH (09:21)
[2020-05-14] MEDS: Pantoprazole 40 MG GRANULES PACKET PER TUBE SCH ×2 (09:21→21:11)
[2020-05-14] MEDS: Tamsulosin HCl 0.4 MG CAP PO SCH ×2 (09:21→21:11)
[2020-05-14] MEDS: Fluticasone Propionate Nasal Spray 16 gm Bottle NASAL SCH ×2 (09:21→21:10)
[2020-05-14] MEDS: Scopolamine 1.5 mg/72 hour Patch TD SCH (09:29)
[2020-05-14] MEDS: Nicotine 14 MG PATCH TOP SCH (09:31)
[2020-05-14] MEDS: Furosemide 40 MG TAB PO SCH (16:08)
[2020-05-14] MEDS: Mirtazapine 30 MG TAB PER TUBE SCH (21:10)
[2020-05-14] MEDS: traZODone HCl 50 MG TAB PER TUBE SCH (21:11)
[2020-05-15] MEDS: Sodium Chloride 0.45% 1,000 ML IV SCH ×3 (03:31→19:54)
[2020-05-15] MEDS: Buprenorphine 8mg/Naloxone 2mg per 1 FILM PER TUBE SCH ×2 (09:36→22:40)
[2020-05-15] MEDS: Pantoprazole 40 MG GRANULES PACKET PER TUBE SCH ×2 (09:37→19:44)
[2020-05-15] MEDS: Metoclopramide 10 MG/10 ML UDCUP PER TUBE SCH ×4 (09:37→19:43)
[2020-05-15] MEDS: Furosemide 20 MG TAB PO SCH (09:37)
[2020-05-15] MEDS: Fluticasone Propionate Nasal Spray 16 gm Bottle NASAL SCH ×2 (09:37→19:44)
[2020-05-15] MEDS: Potassium Bicarbonate/Cit Ac 20 MEQ TAB PER TUBE SCH ×3 (09:37→19:44)
[2020-05-15] MEDS: Nicotine 14 MG PATCH TOP SCH (09:37)
[2020-05-15] MEDS: Tamsulosin HCl 0.4 MG CAP PO SCH ×2 (09:37→19:44)
[2020-05-15] MEDS: Furosemide 40 MG TAB PO SCH (16:08)
[2020-05-15] MEDS: traZODone HCl 50 MG TAB PER TUBE SCH (19:43)
[2020-05-15] MEDS: Mirtazapine 30 MG TAB PER TUBE SCH (19:44)
[2020-05-16] MEDS: Sodium Chloride 0.45% 1,000 ML IV SCH (04:29)
[2020-05-16 06:36] LABS: #Eosinphils 0.3 thou/uL (0.0-0.7); #Lymphocytes 1.6 thou/uL (1.20-3.40); #Monocytes 0.9 thou/uL (0.11-0.59); #Neutrophils 4.1 thou/uL (1.40-6.50); %Basophils 0.5 % (0.0-1.0); %Eosinophils 4.8 % (0.0-10.0); %Lymphocytes 22.6 % (21.0-51.0); %Monocytes 13.5 % (0.0-10.0); %Neutrophils 58.6 % (42.0-75.0); Hemoglobin 7.5 g/dL (14.0-18.0); Mean Corpuscular HGB CONC 33.1 g/dL (32.0-36.0); Mean Corpuscular Hemoglobin 33.7 pg (27.0-31.0); Mean Platelet Volume 8.9 fL (7.4-10.4); Platelet Count 362 thou/uL (130-400); RBC Distribution Width 14.8 % (11.5-14.5); Red Blood Cell (RBC) Count 2.22 mill/uL (4.70-6.10)
[2020-05-16 06:56] LABS: ALT (SGPT) 22 U/L (8-55); AST (SGOT) 35 U/L (5-34); Albumin 2.4 g/dL (3.4-4.8); Alkaline Phosphatase 137 U/L (40-110); Anion Gap 10 mmol/L (10-20); BUN (Urea Nitrogen) 23 mg/dL (8.4-25.7); Bilirubin, Total 0.2 mg/dL (0.2-1.2); Calc. Creatinine Clearance 54 mL/min (70-130); Calcium 7.8 mg/dL (7.8-10.44); Carbon Dioxide 30 mmol/L (23-31); Chloride 99 mmol/L (98-107); Globulin 4.2 g/dL (2.4-3.5); Glucose 122 mg/dL (80-115); Potassium 3.8 mmol/L (3.5-5.1); Protein, Total 6.6 g/dL (5.8-8.1); Sodium 135 mmol/L (136-145)
[2020-05-16] MEDS ORDERED: Sodium Chloride 0.45% 1,000 ML IV SCH (08:00)
[2020-05-16] MEDS: Buprenorphine 8mg/Naloxone 2mg per 1 FILM SL SCH ×2 (09:57→21:28)
[2020-05-16] MEDS: Tamsulosin HCl 0.4 MG CAP PO SCH ×2 (09:59→21:31)
[2020-05-16] MEDS: Potassium Bicarbonate/Cit Ac 20 MEQ TAB PER TUBE SCH ×3 (09:59→21:41)
[2020-05-16] MEDS: Pantoprazole 40 MG GRANULES PACKET PER TUBE SCH ×2 (09:59→21:31)
[2020-05-16] MEDS: Furosemide 20 MG TAB PO SCH ×2 (09:59→17:12)
[2020-05-16] MEDS: Nicotine 14 MG PATCH TOP SCH (10:00)
[2020-05-16] MEDS: Metoclopramide 10 MG/10 ML UDCUP PER TUBE SCH ×4 (10:00→21:31)
[2020-05-16] MEDS: Ondansetron PF 4 MG/2 ML Vial IVP PRN (10:04)
[2020-05-16] MEDS: Acetaminophen 650 MG/20.3 ML UDCUP PER TUBE PRN ×2 (10:30→14:23)
[2020-05-16] MEDS: Albumin 25% 25 GM/100 ML BOT IVPB SCH ×2 (11:52→16:57)
[2020-05-16] MEDS: Buprenorphine 8mg/Naloxone 2mg per 1 FILM PER TUBE SCH (13:13)
[2020-05-16] MEDS: Fluticasone Propionate Nasal Spray 16 gm Bottle NASAL SCH ×2 (13:23→21:32)
[2020-05-16] MEDS: traZODone HCl 50 MG TAB PER TUBE SCH (21:31)
[2020-05-16] MEDS: Mirtazapine 30 MG TAB PER TUBE SCH (21:31)
[2020-05-17] MEDS: Albumin 25% 25 GM/100 ML BOT IVPB SCH ×2 (00:25→05:58)
[2020-05-17 06:01] LABS: #Eosinphils 0.3 thou/uL (0.0-0.7); #Lymphocytes 1.5 thou/uL (1.20-3.40); #Monocytes 1.2 thou/uL (0.11-0.59); #Neutrophils 5.9 thou/uL (1.40-6.50); %Basophils 0.3 % (0.0-1.0); %Lymphocytes 17.3 % (21.0-51.0); %Monocytes 13.4 % (0.0-10.0); Hemoglobin 10.8 g/dL (14.0-18.0); Mean Corpuscular HGB CONC 33.9 g/dL (32.0-36.0); Mean Corpuscular Volume 97.3 fL (78.0-98.0); Mean Platelet Volume 8.6 fL (7.4-10.4); Platelet Count 340 thou/uL (130-400); RBC Distribution Width 16.5 % (11.5-14.5); Red Blood Cell (RBC) Count 3.28 mill/uL (4.70-6.10); White Blood Cell (WBC) Count 8.9 thou/uL (4.8-10.8)
[2020-05-17 06:15] LABS: Anion Gap 17 mmol/L (10-20); BUN (Urea Nitrogen) 24 mg/dL (8.4-25.7); Calc. Creatinine Clearance 49 mL/min (70-130); Calcium 8.7 mg/dL (7.8-10.44); Carbon Dioxide 26 mmol/L (23-31); Chloride 99 mmol/L (98-107); Glucose 92 mg/dL (80-115); Potassium 4.1 mmol/L (3.5-5.1); Sodium 138 mmol/L (136-145)
[2020-05-17] MEDS: Pantoprazole 40 MG GRANULES PACKET PER TUBE SCH ×2 (08:46→23:22)
[2020-05-17] MEDS: Scopolamine 1.5 mg/72 hour Patch TD SCH (08:46)
[2020-05-17] MEDS: Furosemide 20 MG TAB PO SCH ×2 (08:46→15:51)
[2020-05-17] MEDS: Nicotine 14 MG PATCH TOP SCH (08:46)
[2020-05-17] MEDS: Metoclopramide 10 MG/10 ML UDCUP PER TUBE SCH ×4 (08:46→23:22)
[2020-05-17] MEDS: Tamsulosin HCl 0.4 MG CAP PO SCH ×2 (08:46→23:21)
[2020-05-17] MEDS: Fluticasone Propionate Nasal Spray 16 gm Bottle NASAL SCH ×2 (08:47→23:22)
[2020-05-17] MEDS: Buprenorphine 8mg/Naloxone 2mg per 1 FILM SL SCH ×2 (10:34→23:23)
[2020-05-17] MEDS: Potassium Bicarbonate/Cit Ac 20 MEQ TAB PER TUBE SCH ×3 (10:34→23:22)
[2020-05-17] MEDS: Acetaminophen 650 MG/20.3 ML UDCUP PER TUBE PRN (15:51)
[2020-05-17] MEDS: Mirtazapine 30 MG TAB PER TUBE SCH (23:21)
[2020-05-17] MEDS: traZODone HCl 50 MG TAB PER TUBE SCH (23:21)
[2020-05-18 05:58] LABS: #Eosinphils 0.4 thou/uL (0.0-0.7); #Lymphocytes 1.6 thou/uL (1.20-3.40); #Monocytes 1.3 thou/uL (0.11-0.59); #Neutrophils 5.8 thou/uL (1.40-6.50); %Basophils 0.4 % (0.0-1.0); %Lymphocytes 17.5 % (21.0-51.0); %Monocytes 14.1 % (0.0-10.0); Hemoglobin 10.7 g/dL (14.0-18.0); Mean Corpuscular HGB CONC 32.7 g/dL (32.0-36.0); Mean Corpuscular Hemoglobin 31.9 pg (27.0-31.0); Mean Corpuscular Volume 97.6 fL (78.0-98.0); Mean Platelet Volume 8.2 fL (7.4-10.4); Platelet Count 360 thou/uL (130-400); RBC Distribution Width 16.1 % (11.5-14.5); Red Blood Cell (RBC) Count 3.34 mill/uL (4.70-6.10)
[2020-05-18] MEDS: Furosemide 20 MG TAB PO SCH ×2 (08:38→14:33)
[2020-05-18] MEDS: Pantoprazole 40 MG GRANULES PACKET PER TUBE SCH ×2 (08:38→22:21)
[2020-05-18] MEDS: Metoclopramide 10 MG/10 ML UDCUP PER TUBE SCH ×4 (08:38→22:21)
[2020-05-18] MEDS: Potassium Bicarbonate/Cit Ac 20 MEQ TAB PER TUBE SCH ×3 (08:39→22:22)
[2020-05-18] MEDS: Fluticasone Propionate Nasal Spray 16 gm Bottle NASAL SCH ×2 (08:39→22:21)
[2020-05-18] MEDS: Nicotine 14 MG PATCH TOP SCH (08:39)
[2020-05-18] MEDS: Tamsulosin HCl 0.4 MG CAP PO SCH ×2 (08:39→22:22)
[2020-05-18] MEDS: Buprenorphine 8mg/Naloxone 2mg per 1 FILM SL SCH ×2 (09:10→22:20)
[2020-05-18] MEDS: traZODone HCl 50 MG TAB PER TUBE SCH (22:22)
[2020-05-18] MEDS: Mirtazapine 30 MG TAB PER TUBE SCH (22:22)
[2020-05-19] MEDS: Furosemide 20 MG TAB PO SCH ×2 (09:29→15:51)
[2020-05-19] MEDS: Tamsulosin HCl 0.4 MG CAP PO SCH ×2 (09:29→21:40)
[2020-05-19] MEDS: Fluticasone Propionate Nasal Spray 16 gm Bottle NASAL SCH ×2 (09:29→21:42)
[2020-05-19] MEDS: Pantoprazole 40 MG GRANULES PACKET PER TUBE SCH ×2 (09:29→21:40)
[2020-05-19] MEDS: Nicotine 14 MG PATCH TOP SCH (09:29)
[2020-05-19] MEDS: Metoclopramide 10 MG/10 ML UDCUP PER TUBE SCH ×4 (09:29→21:40)
[2020-05-19] MEDS: Potassium Bicarbonate/Cit Ac 20 MEQ TAB PER TUBE SCH ×3 (09:31→21:40)
[2020-05-19] MEDS: Buprenorphine 8mg/Naloxone 2mg per 1 FILM SL SCH ×2 (10:16→21:41)
[2020-05-19] MEDS: traZODone HCl 50 MG TAB PER TUBE SCH (21:40)
[2020-05-19] MEDS: Mirtazapine 30 MG TAB PER TUBE SCH (21:40)
[2020-05-20] MEDS: Pantoprazole 40 MG GRANULES PACKET PER TUBE SCH (08:40)
[2020-05-20] MEDS: Furosemide 20 MG TAB PO SCH (08:40)
[2020-05-20] MEDS: Potassium Bicarbonate/Cit Ac 20 MEQ TAB PER TUBE SCH (08:40)
[2020-05-20] MEDS: Metoclopramide 10 MG/10 ML UDCUP PER TUBE SCH ×2 (08:40→13:06)
[2020-05-20] MEDS: Tamsulosin HCl 0.4 MG CAP PO SCH (08:40)
[2020-05-20] MEDS: Buprenorphine 8mg/Naloxone 2mg per 1 FILM SL SCH (08:41)
[2020-05-20] MEDS: Fluticasone Propionate Nasal Spray 16 gm Bottle NASAL SCH (08:41)
[2020-05-20] MEDS: Nicotine 14 MG PATCH TOP SCH (08:41)
[2020-05-20 14:19] VITALS: BP 136/72; TEMP 98.2
== END 2020-05-20 14:24 | DRG 871 ==
LOC: ERS 19:36 → IMCU/EMU 22:45 → T4-A 04-28 09:46 → T4-B 04-29 02:17 → IMCU/EMU 05-05 00:55 → T4-B 05-06 08:41 → IMCU/EMU 05-07 02:41 → T4-A 05-11 18:47
PROVIDERS: ADMIT Specialist; ATTEND Specialist
PROC: 5A0935A Assistance with Respiratory Ventilation, Less than 24 Consecutive Hours, High Flow/Velocity Cannula (ICD-10-PCS; principal; 2020-04-28)
PROC: 5A09357 Assistance with Respiratory Ventilation, Less than 24 Consecutive Hours, Continuous Positive Airway Pressure (ICD-10-PCS; 2020-05-07)
PROC: 30233N1 Transfusion of Nonautologous Red Blood Cells into Peripheral Vein, Percutaneous Approach (ICD-10-PCS; 2020-05-16)
DX: A41.9 Sepsis, unspecified organism (principal); J69.0 Pneumonitis due to inhalation of food and vomit; E43 Unspecified severe protein-calorie malnutrition; K21.01 Gastro-esophageal reflux disease with esophagitis, with bleeding; Z68.1 Body mass index [BMI] 19.9 or less, adult; E87.1 Hypo-osmolality and hyponatremia; F11.20 Opioid dependence, uncomplicated; R64 Cachexia; I50.30 Unspecified diastolic (congestive) heart failure; Z20.822 Contact with and (suspected) exposure to COVID-19; K22.2 Esophageal obstruction; F41.9 Anxiety disorder, unspecified; J44.9 Chronic obstructive pulmonary disease, unspecified; K31.84 Gastroparesis; K74.60 Unspecified cirrhosis of liver; I11.0 Hypertensive heart disease with heart failure; K29.70 Gastritis, unspecified, without bleeding; F32.9 Major depressive disorder, single episode, unspecified; E87.6 Hypokalemia; R09.02 Hypoxemia; D64.9 Anemia, unspecified; R33.9 Retention of urine, unspecified; Z79.899 Other long term (current) drug therapy
CPT/HCPCS: 0240U; 36415; 36416; 36430; 36600; 51701; 70450; 71045; 71046; 71260; 74018; 80048; 80053; 80306; 81003; 81015; 82140; 82274; 82533; 82805; 83605; 83880; 84153; 84443; 84484; 85025; 85060; 86850; 86900; 86901; 87040; 93005; 93306; 94640; 94760; 96365; 96367; 96375; C9113; J0456; J0696; J1940; J2185; J2310; J2405; J3490; J7050; J7620; P9016; P9047; Q9967

== ENCOUNTER 2020-06-30 18:37 | Inpatient (IN) | payer MEDICARE, MEDICAID ==
[2020-06-30 20:12] LABS: Actual Bicarbonate (HCO3v) 27 mEq/L (22-28); Analyzer IN Cardio ER; Base Excess 4.9 mEq/L (-2.0 to +3.0); Calcium, Ionized (venous) 0.99 mmol/L (1.16-1.32); Chloride (VBG) 94 mmol/L (98-106); Hemoglobin (Hb) 13.3 g/dL (12.6-17.4); Potassium (VBG) 2.85 mmol/L (3.70-5.30); Sodium 131.5 mmol/L (133-146); pH (venous) 7.56 (7.32-7.43)
[2020-06-30 20:12] LABS: #Lymphocytes 2.1 thou/uL (1.20-3.40); #Monocytes 0.7 thou/uL (0.11-0.59); #Neutrophils 5.8 thou/uL (1.40-6.50); %Basophils 0.5 % (0.0-1.0); %Eosinophils 0.2 % (0.0-10.0); %Lymphocytes 24.3 % (21.0-51.0); %Monocytes 7.8 % (0.0-10.0); %Neutrophils 67.2 % (42.0-75.0); Hemoglobin 12.6 g/dL (14.0-18.0); Mean Corpuscular HGB CONC 32.5 g/dL (32.0-36.0); Mean Corpuscular Hemoglobin 31.4 pg (27.0-31.0); Mean Corpuscular Volume 96.6 fL (78.0-98.0); Mean Platelet Volume 6.9 fL (7.4-10.4); Platelet Count 337 thou/uL (130-400); RBC Distribution Width 13.9 % (11.5-14.5); Red Blood Cell (RBC) Count 4.01 mill/uL (4.70-6.10); White Blood Cell (WBC) Count 8.6 thou/uL (4.8-10.8)
[2020-06-30 20:31] LABS: ALT (SGPT) 21 U/L (8-55); AST (SGOT) 36 U/L (5-34); Albumin 3.4 g/dL (3.4-4.8); Alkaline Phosphatase 90 U/L (40-110); Anion Gap 15 mmol/L (10-20); BUN (Urea Nitrogen) 19 mg/dL (8.4-25.7); Bilirubin, Total 0.4 mg/dL (0.2-1.2); Calc. Creatinine Clearance 0 mL/min (70-130); Calcium 8.6 mg/dL (7.8-10.44); Carbon Dioxide 27 mmol/L (23-31); Chloride 94 mmol/L (98-107); Globulin 4.6 g/dL (2.4-3.5); Glucose 99 mg/dL (80-115); Potassium 3.2 mmol/L (3.5-5.1); Sodium 133 mmol/L (136-145)
[2020-06-30] MEDS ORDERED: cefTRIAXone\\ROCEPHIN 2 GM VIAL ONE (20:40)
[2020-06-30] MEDS ORDERED: Azithromycin 500 MG VIAL ONE (22:28)
[2020-07-01 00:01] LABS: SARS-CoV-2 NAA Rapid Test Not Detected (NotDetected)
[2020-07-01] MEDS ORDERED: Ondansetron PF 4 MG/2 ML Vial IVP PRN (09:39)
[2020-07-01] MEDS ORDERED: ALPRAZolam 0.5 MG TAB PER TUBE SCH (10:30)
[2020-07-01] MEDS: Sodium Chloride 0.9% 1,000 ML IV SCH ×2 (10:38→23:05)
[2020-07-01] MEDS: Scopolamine 1.5 mg/72 hour Patch TOP SCH (10:44)
[2020-07-01] MEDS: Nicotine 7 MG PATCH TOP SCH (10:45)
[2020-07-01] MEDS: Fluticasone Propionate Nasal Spray 16 gm Bottle NASAL SCH ×2 (10:46→21:40)
[2020-07-01] MEDS: Metoclopramide 10 MG/10 ML UDCUP PER TUBE SCH ×3 (10:52→21:12)
[2020-07-01] MEDS: Acetaminophen 650 MG/20.3 ML UDCUP PER TUBE PRN (16:48)
[2020-07-01] MEDS: Potassium Bicarbonate/Cit Ac 20 MEQ TAB PER TUBE SCH (16:50)
[2020-07-01] MEDS ORDERED: Pantoprazole 40 MG GRANULES PACKET PER TUBE SCH (21:00)
[2020-07-01] MEDS: Mirtazapine 30 MG TAB PER TUBE SCH (21:13)
[2020-07-01] MEDS: traZODone HCl 50 MG TAB PER TUBE SCH (21:14)
[2020-07-01] MEDS: Tamsulosin HCl 0.4 MG CAP PO SCH (21:14)
[2020-07-01] MEDS: ALPRAZolam 0.5 MG TAB PER TUBE SCH (21:14)
[2020-07-01] MEDS ORDERED: Pantoprazole 40 MG VIAL IVP SCH (22:00)
[2020-07-02] MEDS: Acetaminophen 650 MG/20.3 ML UDCUP PER TUBE PRN ×4 (02:27→20:51)
[2020-07-02 05:24] LABS: #Monocytes 0.4 thou/uL (0.11-0.59); %Basophils 0.1 % (0.0-1.0); %Eosinophils 0.1 % (0.0-10.0); %Lymphocytes 13.5 % (21.0-51.0); %Neutrophils 83.3 % (42.0-75.0); Hemoglobin 10.3 g/dL (14.0-18.0); Mean Corpuscular HGB CONC 33.8 g/dL (32.0-36.0); Mean Corpuscular Hemoglobin 32.4 pg (27.0-31.0); Mean Corpuscular Volume 95.8 fL (78.0-98.0); Mean Platelet Volume 7.1 fL (7.4-10.4); Platelet Count 272 thou/uL (130-400); RBC Distribution Width 14.4 % (11.5-14.5); Red Blood Cell (RBC) Count 3.19 mill/uL (4.70-6.10); White Blood Cell (WBC) Count 14.4 thou/uL (4.8-10.8)
[2020-07-02 05:41] LABS: Anion Gap 10 mmol/L (10-20); BUN (Urea Nitrogen) 16 mg/dL (8.4-25.7); Calc. Creatinine Clearance 55 mL/min (70-130); Calcium 8.7 mg/dL (7.8-10.44); Carbon Dioxide 27 mmol/L (23-31); Chloride 106 mmol/L (98-107); Glucose 106 mg/dL (80-115); Sodium 140 mmol/L (136-145)
[2020-07-02 05:44] LABS: Potassium 2.8 mmol/L (3.5-5.1)
[2020-07-02] MEDS: Potassium Chloride 40 MEQ in Sodium Chloride 0.9% 250 ML 250 ML IVPB SCH ×2 (06:42→12:53)
[2020-07-02] MEDS ORDERED: Adenosine 6 MG/2 ML VIAL ONE (07:18)
[2020-07-02] MEDS: Metoclopramide 10 MG/10 ML UDCUP PER TUBE SCH ×3 (08:28→19:20)
[2020-07-02] MEDS: ALPRAZolam 0.5 MG TAB PER TUBE SCH ×2 (08:29→20:50)
[2020-07-02] MEDS: Potassium Bicarbonate/Cit Ac 20 MEQ TAB PER TUBE SCH ×2 (08:29→19:20)
[2020-07-02] MEDS: Tamsulosin HCl 0.4 MG CAP PO SCH ×2 (08:29→20:50)
[2020-07-02] MEDS: Pantoprazole 40 MG VIAL IVP SCH ×2 (08:29→20:51)
[2020-07-02] MEDS: Fluticasone Propionate Nasal Spray 16 gm Bottle NASAL SCH ×2 (08:31→20:52)
[2020-07-02] MEDS: Nicotine 7 MG PATCH TOP SCH (08:43)
[2020-07-02] MEDS: Cefdinir 125 MG/5 ML Oral Suspension PER TUBE SCH ×2 (12:53→20:51)
[2020-07-02] MEDS: Sodium Chloride 0.9% 1,000 ML IV SCH (12:53)
[2020-07-02] MEDS: Azithromycin 200 MG/5 ML Oral Suspension PER TUBE SCH (12:53)
[2020-07-02] MEDS ORDERED: Metoclopramide HCl 10 MG/2 ML VIAL IVP PRN (17:32)
[2020-07-02] MEDS: Metoclopramide HCl 10 MG/2 ML VIAL IVP SCH (19:20)
[2020-07-02] MEDS: traZODone HCl 50 MG TAB PER TUBE SCH (20:50)
[2020-07-02] MEDS: Mirtazapine 30 MG TAB PER TUBE SCH (20:51)
[2020-07-03] MEDS: Sodium Chloride 0.9% 1,000 ML IV SCH ×2 (01:03→14:00)
[2020-07-03] MEDS: Metoclopramide HCl 10 MG/2 ML VIAL IVP SCH ×4 (01:03→18:15)
[2020-07-03 06:43] LABS: #Eosinphils 0.1 thou/uL (0.0-0.7); #Lymphocytes 1.2 thou/uL (1.20-3.40); #Monocytes 0.3 thou/uL (0.11-0.59); #Neutrophils 5.3 thou/uL (1.40-6.50); %Basophils 0.4 % (0.0-1.0); %Eosinophils 1.4 % (0.0-10.0); %Lymphocytes 16.9 % (21.0-51.0); %Monocytes 3.9 % (0.0-10.0); %Neutrophils 77.4 % (42.0-75.0); Hemoglobin 10.1 g/dL (14.0-18.0); Mean Platelet Volume 7.5 fL (7.4-10.4); Platelet Count 295 thou/uL (130-400); RBC Distribution Width 14.6 % (11.5-14.5); Red Blood Cell (RBC) Count 3.17 mill/uL (4.70-6.10); White Blood Cell (WBC) Count 6.8 thou/uL (4.8-10.8)
[2020-07-03 06:50] LABS: Hemoglobin A1c 4.9 % (4.0-6.0)
[2020-07-03 07:05] LABS: Anion Gap 10 mmol/L (10-20); BUN (Urea Nitrogen) 12 mg/dL (8.4-25.7); Calc. Creatinine Clearance 56 mL/min (70-130); Calcium 8.5 mg/dL (7.8-10.44); Carbon Dioxide 21 mmol/L (23-31); Chloride 112 mmol/L (98-107); Glucose 92 mg/dL (80-115); Potassium 3.6 mmol/L (3.5-5.1); Sodium 139 mmol/L (136-145)
[2020-07-03] MEDS: Pantoprazole 40 MG VIAL IVP SCH ×2 (08:38→21:22)
[2020-07-03] MEDS: ALPRAZolam 0.5 MG TAB PER TUBE SCH ×2 (08:38→21:21)
[2020-07-03] MEDS: Potassium Bicarbonate/Cit Ac 20 MEQ TAB PER TUBE SCH ×2 (08:38→18:00)
[2020-07-03] MEDS: Cefdinir 125 MG/5 ML Oral Suspension PER TUBE SCH ×2 (08:39→21:24)
[2020-07-03] MEDS: Tamsulosin HCl 0.4 MG CAP PO SCH ×2 (08:39→21:22)
[2020-07-03] MEDS: Acetaminophen 650 MG/20.3 ML UDCUP PER TUBE PRN ×2 (08:39→21:23)
[2020-07-03] MEDS: Azithromycin 200 MG/5 ML Oral Suspension PER TUBE SCH (08:39)
[2020-07-03] MEDS: Fluticasone Propionate Nasal Spray 16 gm Bottle NASAL SCH ×2 (08:43→21:22)
[2020-07-03] MEDS: Nicotine 7 MG PATCH TOP SCH (08:49)
[2020-07-03] MEDS ORDERED: hydrALAZINE 20 MG/ML VIAL SLOW IVP PRN (20:27)
[2020-07-03] MEDS: traZODone HCl 50 MG TAB PER TUBE SCH (21:22)
[2020-07-03] MEDS: Mirtazapine 30 MG TAB PER TUBE SCH (21:22)
[2020-07-04] MEDS: Metoclopramide HCl 10 MG/2 ML VIAL IVP SCH ×4 (01:35→20:53)
[2020-07-04] MEDS: Sodium Chloride 0.9% 1,000 ML IV SCH ×2 (01:37→18:03)
[2020-07-04 05:35] LABS: #Eosinphils 0.1 thou/uL (0.0-0.7); #Lymphocytes 1.8 thou/uL (1.20-3.40); #Monocytes 0.3 thou/uL (0.11-0.59); #Neutrophils 2.8 thou/uL (1.40-6.50); %Basophils 0.8 % (0.0-1.0); %Eosinophils 2.3 % (0.0-10.0); %Lymphocytes 35.7 % (21.0-51.0); %Monocytes 5.5 % (0.0-10.0); %Neutrophils 55.7 % (42.0-75.0); Hemoglobin 9.7 g/dL (14.0-18.0); Mean Corpuscular HGB CONC 32.3 g/dL (32.0-36.0); Mean Corpuscular Hemoglobin 31.6 pg (27.0-31.0); Mean Corpuscular Volume 97.8 fL (78.0-98.0); Mean Platelet Volume 7.3 fL (7.4-10.4); Platelet Count 335 thou/uL (130-400); RBC Distribution Width 14.4 % (11.5-14.5); Red Blood Cell (RBC) Count 3.08 mill/uL (4.70-6.10); White Blood Cell (WBC) Count 5.1 thou/uL (4.8-10.8)
[2020-07-04 05:52] LABS: Anion Gap 9 mmol/L (10-20); BUN (Urea Nitrogen) 9 mg/dL (8.4-25.7); Calc. Creatinine Clearance 62 mL/min (70-130); Calcium 8.4 mg/dL (7.8-10.44); Carbon Dioxide 21 mmol/L (23-31); Chloride 111 mmol/L (98-107); Glucose 88 mg/dL (80-115); Potassium 3.4 mmol/L (3.5-5.1); Sodium 138 mmol/L (136-145)
[2020-07-04] MEDS: Azithromycin 200 MG/5 ML Oral Suspension PER TUBE SCH (09:32)
[2020-07-04] MEDS: Cefdinir 125 MG/5 ML Oral Suspension PER TUBE SCH ×2 (09:32→20:52)
[2020-07-04] MEDS: Pantoprazole 40 MG VIAL IVP SCH ×2 (09:33→21:01)
[2020-07-04] MEDS: ALPRAZolam 0.5 MG TAB PER TUBE SCH ×2 (09:33→20:52)
[2020-07-04] MEDS: Scopolamine 1.5 mg/72 hour Patch TOP SCH (09:33)
[2020-07-04] MEDS: Fluticasone Propionate Nasal Spray 16 gm Bottle NASAL SCH ×2 (09:33→20:53)
[2020-07-04] MEDS: Tamsulosin HCl 0.4 MG CAP PO SCH ×2 (09:33→20:52)
[2020-07-04] MEDS: Nicotine 7 MG PATCH TOP SCH (09:33)
[2020-07-04] MEDS: Acetaminophen 650 MG/20.3 ML UDCUP PER TUBE PRN ×2 (09:34→18:02)
[2020-07-04] MEDS: Potassium Bicarbonate/Cit Ac 20 MEQ TAB PER TUBE SCH ×2 (09:48→18:03)
[2020-07-04] MEDS ORDERED: Lidocaine 2% Jelly 5 ML TUBE ONE (12:45)
[2020-07-04] MEDS ORDERED: Fentanyl 100 MCG/2 ML VIAL ONE ×2 (12:45→14:32)
[2020-07-04] MEDS ORDERED: Lidocaine 1% w/Epinephrine 1:100K 20 ML VIAL ONE (12:47)
[2020-07-04] MEDS ORDERED: Bupivacaine PF 0.5% 30 ML VIAL ONE (12:47)
[2020-07-04] MEDS ORDERED: Succinylcholine 200 MG/10 ml SYRINGE FS ONE (12:56)
[2020-07-04] MEDS ORDERED: Rocuronium Bromide 10 MG/ML (10ML VIAL) ONE (12:56)
[2020-07-04] MEDS ORDERED: Lidocaine 1% PF 5 ML VIAL ONE (12:56)
[2020-07-04] MEDS ORDERED: PHENYLEPHRINE-NS 100 MCG/ML 10 ML SYRINGE ONE (12:56)
[2020-07-04] MEDS ORDERED: Dexamethasone 20 MG/5 ML VIAL ONE (12:56)
[2020-07-04] MEDS ORDERED: Albuterol Sulfate HFA (OR ONLY) ONE ×2 (12:56→13:29)
[2020-07-04] MEDS ORDERED: Esmolol 100 MG/10 ML VIAL ONE (12:56)
[2020-07-04] MEDS ORDERED: PROPOFOL 200 MG/20 ML VIAL ONE (12:56)
[2020-07-04] MEDS ORDERED: Glycopyrrolate 0.2 MG/ML 5 ML SYRINGE ONE (12:56)
[2020-07-04] MEDS ORDERED: Ondansetron PF 4 MG/2 ML Vial ONE (12:56)
[2020-07-04] MEDS ORDERED: Promethazine HCl 25 MG/ML VIAL SLOW IVP PRN (14:17)
[2020-07-04] MEDS ORDERED: Ondansetron HCl/PF 4 MG/2 ML Vial IVP PRN (14:17)
[2020-07-04] MEDS ORDERED: Promethazine HCl 25 MG/ML VIAL IM PRN (14:17)
[2020-07-04] MEDS: traZODone HCl 50 MG TAB PER TUBE SCH (20:52)
[2020-07-04] MEDS: Mirtazapine 30 MG TAB PER TUBE SCH (20:52)
[2020-07-05] MEDS: Acetaminophen 650 MG/20.3 ML UDCUP PER TUBE PRN ×6 (00:17→23:20)
[2020-07-05] MEDS: Metoclopramide HCl 10 MG/2 ML VIAL IVP SCH ×2 (00:18→06:43)
[2020-07-05 06:14] LABS: #Lymphocytes 1.9 thou/uL (1.20-3.40); #Monocytes 0.5 thou/uL (0.11-0.59); #Neutrophils 5.2 thou/uL (1.40-6.50); %Basophils 0.3 % (0.0-1.0); %Eosinophils 0.2 % (0.0-10.0); %Monocytes 6.5 % (0.0-10.0); %Neutrophils 68.1 % (42.0-75.0); Mean Corpuscular HGB CONC 33.9 g/dL (32.0-36.0); Mean Corpuscular Hemoglobin 32.8 pg (27.0-31.0); Mean Corpuscular Volume 96.7 fL (78.0-98.0); Mean Platelet Volume 7.9 fL (7.4-10.4); Platelet Count 381 thou/uL (130-400); RBC Distribution Width 14.7 % (11.5-14.5); Red Blood Cell (RBC) Count 3.67 mill/uL (4.70-6.10); White Blood Cell (WBC) Count 7.7 thou/uL (4.8-10.8)
[2020-07-05 06:36] LABS: Anion Gap 14 mmol/L (10-20); BUN (Urea Nitrogen) 9 mg/dL (8.4-25.7); Calc. Creatinine Clearance 60 mL/min (70-130); Calcium 9.2 mg/dL (7.8-10.44); Carbon Dioxide 17 mmol/L (23-31); Chloride 106 mmol/L (98-107); Glucose 95 mg/dL (80-115); Potassium 3.5 mmol/L (3.5-5.1); Sodium 133 mmol/L (136-145)
[2020-07-05] MEDS: Azithromycin 200 MG/5 ML Oral Suspension PER TUBE SCH (09:12)
[2020-07-05] MEDS: Cefdinir 125 MG/5 ML Oral Suspension PER TUBE SCH ×2 (09:12→20:20)
[2020-07-05] MEDS: Pantoprazole 40 MG GRANULES PACKET PO SCH ×2 (09:12→20:17)
[2020-07-05] MEDS: Potassium Bicarbonate/Cit Ac 20 MEQ TAB PER TUBE SCH ×2 (09:13→18:30)
[2020-07-05] MEDS: Fluticasone Propionate Nasal Spray 16 gm Bottle NASAL SCH ×2 (09:13→20:20)
[2020-07-05] MEDS: ALPRAZolam 0.5 MG TAB PER TUBE SCH ×2 (09:13→20:19)
[2020-07-05] MEDS: Nicotine 7 MG PATCH TOP SCH (09:14)
[2020-07-05] MEDS: Tamsulosin HCl 0.4 MG CAP PO SCH ×2 (09:14→20:19)
[2020-07-05] MEDS: Metoclopramide 10 MG/10 ML UDCUP PER TUBE SCH ×3 (12:35→20:21)
[2020-07-05] MEDS: Sodium Chloride 0.9% 1,000 ML IV SCH (12:39)
[2020-07-05] MEDS: Mirtazapine 30 MG TAB PER TUBE SCH (20:17)
[2020-07-05] MEDS: traZODone HCl 50 MG TAB PER TUBE SCH (20:19)
[2020-07-06] MEDS: Sodium Chloride 0.9% 1,000 ML IV SCH ×2 (01:03→02:08)
[2020-07-06] MEDS: Acetaminophen 650 MG/20.3 ML UDCUP PER TUBE PRN ×4 (02:04→21:05)
[2020-07-06 07:36] LABS: Hemoglobin 10.9 g/dL (14.0-18.0); Mean Corpuscular HGB CONC 33.9 g/dL (32.0-36.0); Mean Corpuscular Hemoglobin 32.8 pg (27.0-31.0); Mean Corpuscular Volume 96.6 fL (78.0-98.0); Mean Platelet Volume 8.8 fL (7.4-10.4); Platelet Count 262 thou/uL (130-400); RBC Distribution Width 14.7 % (11.5-14.5); Red Blood Cell (RBC) Count 3.32 mill/uL (4.70-6.10); White Blood Cell (WBC) Count 10.2 thou/uL (4.8-10.8)
[2020-07-06 07:50] LABS: Anion Gap 9 mmol/L (10-20); BUN (Urea Nitrogen) 10 mg/dL (8.4-25.7); Calc. Creatinine Clearance 65 mL/min (70-130); Calcium 8.4 mg/dL (7.8-10.44); Carbon Dioxide 18 mmol/L (23-31); Chloride 112 mmol/L (98-107); Glucose 121 mg/dL (80-115); Potassium 3.2 mmol/L (3.5-5.1); Sodium 136 mmol/L (136-145)
[2020-07-06 08:26] LABS: Anisocytosis SLIGHT = 6-15 cells (100X) (0-5/hpf); Band 2 % (5-11); Lymphocytes 8 % (21-51); MDiff Complete? YES; Monocytes 2 % (0-10); Neutrophil 88 % (42-75); Platelet Morphology Comment Appears Adequate
[2020-07-06] MEDS: Metoclopramide 10 MG/10 ML UDCUP PER TUBE SCH ×3 (09:47→16:14)
[2020-07-06] MEDS: Azithromycin 200 MG/5 ML Oral Suspension PER TUBE SCH (09:48)
[2020-07-06] MEDS: Potassium Bicarbonate/Cit Ac 20 MEQ TAB PER TUBE SCH ×2 (09:48→16:14)
[2020-07-06] MEDS: Fluticasone Propionate Nasal Spray 16 gm Bottle NASAL SCH ×2 (09:48→21:04)
[2020-07-06] MEDS: ALPRAZolam 0.5 MG TAB PER TUBE SCH ×2 (09:48→21:04)
[2020-07-06] MEDS: Nicotine 7 MG PATCH TOP SCH (09:48)
[2020-07-06] MEDS: Pantoprazole 40 MG GRANULES PACKET PO SCH ×2 (09:48→21:04)
[2020-07-06] MEDS: Tamsulosin HCl 0.4 MG CAP PO SCH ×2 (09:48→21:04)
[2020-07-06] MEDS: Cefdinir 125 MG/5 ML Oral Suspension PER TUBE SCH ×2 (09:48→21:04)
[2020-07-06 15:57] LABS: ALT (SGPT) 11 U/L (8-55); AST (SGOT) 19 U/L (5-34); Albumin 2.9 g/dL (3.4-4.8); Alkaline Phosphatase 86 U/L (40-110); Anion Gap 13 mmol/L (10-20); BUN (Urea Nitrogen) 10 mg/dL (8.4-25.7); Bilirubin, Total 0.3 mg/dL (0.2-1.2); Calc. Creatinine Clearance 60 mL/min (70-130); Calcium 8.8 mg/dL (7.8-10.44); Carbon Dioxide 18 mmol/L (23-31); Chloride 112 mmol/L (98-107); Globulin 4.3 g/dL (2.4-3.5); Glucose 118 mg/dL (80-115); Potassium 3.7 mmol/L (3.5-5.1); Protein, Total 7.2 g/dL (5.8-8.1); Sodium 139 mmol/L (136-145)
[2020-07-06] MEDS: Metoclopramide HCl 10 MG/2 ML VIAL IVP SCH ×2 (18:58→23:18)
[2020-07-06] MEDS: Mirtazapine 30 MG TAB PER TUBE SCH (21:04)
[2020-07-06] MEDS: traZODone HCl 50 MG TAB PER TUBE SCH (21:05)
[2020-07-07] MEDS: Sodium Chloride 0.9% 1,000 ML IV SCH ×5 (02:15→20:20)
[2020-07-07] MEDS: Acetaminophen 650 MG/20.3 ML UDCUP PER TUBE PRN ×4 (03:10→23:59)
[2020-07-07 05:00] LABS: Anion Gap 10 mmol/L (10-20); BUN (Urea Nitrogen) 9 mg/dL (8.4-25.7); Calc. Creatinine Clearance 61 mL/min (70-130); Calcium 8.6 mg/dL (7.8-10.44); Carbon Dioxide 16 mmol/L (23-31); Chloride 113 mmol/L (98-107); Glucose 125 mg/dL (80-115); Potassium 3.4 mmol/L (3.5-5.1); Sodium 136 mmol/L (136-145)
[2020-07-07] MEDS: Metoclopramide HCl 10 MG/2 ML VIAL IVP SCH ×3 (05:30→18:08)
[2020-07-07] MEDS: Pantoprazole 40 MG GRANULES PACKET PO SCH ×2 (09:01→20:19)
[2020-07-07] MEDS: Cefdinir 125 MG/5 ML Oral Suspension PER TUBE SCH ×2 (09:02→20:19)
[2020-07-07] MEDS: Potassium Bicarbonate/Cit Ac 20 MEQ TAB PER TUBE SCH ×2 (09:02→18:08)
[2020-07-07] MEDS: Azithromycin 200 MG/5 ML Oral Suspension PER TUBE SCH (09:02)
[2020-07-07] MEDS: Tamsulosin HCl 0.4 MG CAP PO SCH ×2 (09:02→20:20)
[2020-07-07] MEDS: ALPRAZolam 0.5 MG TAB PER TUBE SCH ×2 (09:02→20:18)
[2020-07-07] MEDS: Fluticasone Propionate Nasal Spray 16 gm Bottle NASAL SCH ×2 (09:03→20:19)
[2020-07-07] MEDS: Nicotine 7 MG PATCH TOP SCH (09:32)
[2020-07-07] MEDS: Scopolamine 1.5 mg/72 hour Patch TOP SCH (10:49)
[2020-07-07] MEDS ORDERED: Furosemide 20 MG/2 ML VIAL SLOW IVP SCH (13:45)
[2020-07-07] MEDS: Promethazine HCl 6.25 MG/5 ML Syrup PER TUBE SCH (20:19)
[2020-07-07] MEDS: Mirtazapine 30 MG TAB PER TUBE SCH (20:19)
[2020-07-07] MEDS: traZODone HCl 50 MG TAB PER TUBE SCH (20:20)
[2020-07-08 03:51] LABS: #Lymphocytes 0.8 thou/uL (1.20-3.40); #Monocytes 0.3 thou/uL (0.11-0.59); %Basophils 0.2 % (0.0-1.0); %Lymphocytes 8.9 % (21.0-51.0); %Monocytes 3.7 % (0.0-10.0); %Neutrophils 87.2 % (42.0-75.0); Hemoglobin 9.2 g/dL (14.0-18.0); Mean Corpuscular HGB CONC 33.8 g/dL (32.0-36.0); Mean Corpuscular Hemoglobin 32.9 pg (27.0-31.0); Mean Corpuscular Volume 97.2 fL (78.0-98.0); Mean Platelet Volume 7.7 fL (7.4-10.4); Platelet Count 380 thou/uL (130-400); RBC Distribution Width 15.3 % (11.5-14.5); White Blood Cell (WBC) Count 9.1 thou/uL (4.8-10.8)
[2020-07-08 04:10] LABS: Anion Gap 12 mmol/L (10-20); BUN (Urea Nitrogen) 15 mg/dL (8.4-25.7); Calc. Creatinine Clearance 71 mL/min (70-130); Calcium 8.6 mg/dL (7.8-10.44); Carbon Dioxide 20 mmol/L (23-31); Chloride 113 mmol/L (98-107); Glucose 105 mg/dL (80-115); Potassium 3.4 mmol/L (3.5-5.1); Sodium 142 mmol/L (136-145)
[2020-07-08] MEDS: Sodium Chloride 0.9% 1,000 ML IV SCH ×3 (04:53→18:34)
[2020-07-08] MEDS: Acetaminophen 650 MG/20.3 ML UDCUP PER TUBE PRN ×4 (06:34→23:54)
[2020-07-08] MEDS: Metoclopramide HCl 10 MG/2 ML VIAL IVP SCH ×5 (06:34→23:54)
[2020-07-08] MEDS: Tamsulosin HCl 0.4 MG CAP PO SCH ×2 (08:18→20:44)
[2020-07-08] MEDS: Azithromycin 200 MG/5 ML Oral Suspension PER TUBE SCH (08:18)
[2020-07-08] MEDS: ALPRAZolam 0.5 MG TAB PER TUBE SCH ×2 (08:18→20:44)
[2020-07-08] MEDS: Cefdinir 125 MG/5 ML Oral Suspension PER TUBE SCH ×2 (08:18→20:45)
[2020-07-08] MEDS: Fluticasone Propionate Nasal Spray 16 gm Bottle NASAL SCH ×2 (08:18→20:45)
[2020-07-08] MEDS: Pantoprazole 40 MG GRANULES PACKET PO SCH ×2 (08:18→20:44)
[2020-07-08] MEDS: Potassium Bicarbonate/Cit Ac 20 MEQ TAB PER TUBE SCH ×2 (08:18→18:50)
[2020-07-08] MEDS: Nicotine 7 MG PATCH TOP SCH (08:19)
[2020-07-08 12:03] LABS: Anion Gap 15 mmol/L (10-20); BUN (Urea Nitrogen) 20 mg/dL (8.4-25.7); Calc. Creatinine Clearance 65 mL/min (70-130); Calcium 8.8 mg/dL (7.8-10.44); Carbon Dioxide 19 mmol/L (23-31); Chloride 109 mmol/L (98-107); Glucose 141 mg/dL (80-115); Potassium 3.5 mmol/L (3.5-5.1); Sodium 139 mmol/L (136-145)
[2020-07-08] MEDS ORDERED: Furosemide 40 MG/4 ML VIAL SLOW IVP SCH (15:30)
[2020-07-08] MEDS: traZODone HCl 50 MG TAB PER TUBE SCH (20:44)
[2020-07-08] MEDS: Mirtazapine 30 MG TAB PER TUBE SCH (20:44)
[2020-07-08] MEDS: Promethazine HCl 6.25 MG/5 ML Syrup PER TUBE SCH (20:44)
[2020-07-09] MEDS: Metoclopramide HCl 10 MG/2 ML VIAL IVP SCH ×4 (05:44→23:30)
[2020-07-09] MEDS: Acetaminophen 650 MG/20.3 ML UDCUP PER TUBE PRN ×3 (05:47→13:19)
[2020-07-09] MEDS: Sodium Chloride 0.9% 1,000 ML IV SCH ×4 (07:49→23:30)
[2020-07-09] MEDS: ALPRAZolam 0.5 MG TAB PER TUBE SCH ×2 (09:14→20:35)
[2020-07-09] MEDS: Tamsulosin HCl 0.4 MG CAP PO SCH ×2 (09:14→20:36)
[2020-07-09] MEDS: Furosemide 40 MG TAB PER TUBE SCH (09:14)
[2020-07-09] MEDS: Potassium Bicarbonate/Cit Ac 20 MEQ TAB PER TUBE SCH ×2 (09:15→17:51)
[2020-07-09] MEDS: Pantoprazole 40 MG GRANULES PACKET PO SCH ×2 (09:15→20:35)
[2020-07-09] MEDS: Cefdinir 125 MG/5 ML Oral Suspension PER TUBE SCH ×2 (09:15→20:35)
[2020-07-09] MEDS: Fluticasone Propionate Nasal Spray 16 gm Bottle NASAL SCH ×2 (09:15→20:37)
[2020-07-09] MEDS: Nicotine 7 MG PATCH TOP SCH (09:15)
[2020-07-09] MEDS: Azithromycin 200 MG/5 ML Oral Suspension PER TUBE SCH (09:22)
[2020-07-09 12:10] LABS: Hemoglobin 9.5 g/dL (14.0-18.0); Mean Corpuscular Hemoglobin 32.9 pg (27.0-31.0); Mean Corpuscular Volume 99.5 fL (78.0-98.0); Mean Platelet Volume 8.2 fL (7.4-10.4); Platelet Count 408 thou/uL (130-400); RBC Distribution Width 15.3 % (11.5-14.5); Red Blood Cell (RBC) Count 2.89 mill/uL (4.70-6.10); White Blood Cell (WBC) Count 16.8 thou/uL (4.8-10.8)
[2020-07-09 12:26] LABS: Anion Gap 15 mmol/L (10-20); BUN (Urea Nitrogen) 31 mg/dL (8.4-25.7); Calc. Creatinine Clearance 63 mL/min (70-130); Calcium 8.9 mg/dL (7.8-10.44); Carbon Dioxide 22 mmol/L (23-31); Chloride 108 mmol/L (98-107); Glucose 115 mg/dL (80-115); Potassium 3.7 mmol/L (3.5-5.1); Sodium 141 mmol/L (136-145)
[2020-07-09 12:40] LABS: Band 37 % (5-11); Lymphocytes 7 % (21-51); MDiff Complete? YES; Macrocytosis SLIGHT = 6-15 cells (100X) (0-5/hpf); Neutrophil 56 % (42-75); Platelet Morphology Comment Appears Increased; Polychromasia SLIGHT = 2-3 cells (100X) (0-2/hpf)
[2020-07-09] MEDS: HYDROcodone/Acetaminophen 5/325 mg Tablet PER TUBE PRN (17:51)
[2020-07-09] MEDS: Promethazine HCl 6.25 MG/5 ML Syrup PER TUBE SCH (20:35)
[2020-07-09] MEDS: Mirtazapine 30 MG TAB PER TUBE SCH (20:35)
[2020-07-09] MEDS: traZODone HCl 50 MG TAB PER TUBE SCH (20:36)
[2020-07-10] MEDS: Acetaminophen 650 MG/20.3 ML UDCUP PER TUBE PRN (00:14)
[2020-07-10] MEDS: Metoclopramide HCl 10 MG/2 ML VIAL IVP SCH ×3 (05:13→16:54)
[2020-07-10] MEDS: HYDROcodone/Acetaminophen 10/325 mg Tablet PO PRN ×2 (07:51→18:14)
[2020-07-10] MEDS: Potassium Bicarbonate/Cit Ac 20 MEQ TAB PER TUBE SCH ×2 (07:52→16:54)
[2020-07-10] MEDS: ALPRAZolam 0.5 MG TAB PER TUBE SCH ×2 (07:52→23:48)
[2020-07-10] MEDS: Pantoprazole 40 MG GRANULES PACKET PO SCH ×2 (07:52→20:56)
[2020-07-10] MEDS: Tamsulosin HCl 0.4 MG CAP PO SCH ×2 (07:52→20:56)
[2020-07-10] MEDS: Furosemide 40 MG TAB PER TUBE SCH (07:52)
[2020-07-10] MEDS: Fluticasone Propionate Nasal Spray 16 gm Bottle NASAL SCH ×2 (07:53→20:56)
[2020-07-10] MEDS: Scopolamine 1.5 mg/72 hour Patch TOP SCH (08:06)
[2020-07-10] MEDS: Nicotine 7 MG PATCH TOP SCH (08:07)
[2020-07-10] MEDS: Cefdinir 125 MG/5 ML Oral Suspension PER TUBE SCH ×2 (08:08→20:57)
[2020-07-10] MEDS ORDERED: Zolpidem Tartrate 5 MG TAB PER TUBE PRN (08:37)
[2020-07-10] MEDS ORDERED: Iopamidol-370 76% 500 ML 1 ML ONE (09:29)
[2020-07-10 10:18] LABS: Anion Gap 13 mmol/L (10-20); BUN (Urea Nitrogen) 25 mg/dL (8.4-25.7); Calc. Creatinine Clearance 65 mL/min (70-130); Calcium 8.4 mg/dL (7.8-10.44); Carbon Dioxide 20 mmol/L (23-31); Chloride 113 mmol/L (98-107); Glucose 141 mg/dL (80-115); Potassium 3.4 mmol/L (3.5-5.1); Sodium 143 mmol/L (136-145)
[2020-07-10 10:42] LABS: Band 4 % (5-11); Hemoglobin 8.7 g/dL (14.0-18.0); Lymphocytes 2 % (21-51); MDiff Complete? YES; Mean Corpuscular HGB CONC 32.6 g/dL (32.0-36.0); Mean Corpuscular Hemoglobin 31.9 pg (27.0-31.0); Mean Corpuscular Volume 97.8 fL (78.0-98.0); Mean Platelet Volume 7.5 fL (7.4-10.4); Monocytes 3 % (0-10); Neutrophil 91 % (42-75); Platelet Count 469 thou/uL (130-400); Platelet Morphology Comment Appears Increased; RBC Distribution Width 15.2 % (11.5-14.5); Red Blood Cell (RBC) Count 2.73 mill/uL (4.70-6.10)
[2020-07-10] MEDS: Cyclobenzaprine 10 MG TAB PER TUBE SCH ×3 (10:47→20:58)
[2020-07-10] MEDS: Azithromycin 200 MG/5 ML Oral Suspension PER TUBE SCH (10:47)
[2020-07-10] MEDS: traZODone HCl 50 MG TAB PER TUBE SCH (20:56)
[2020-07-10] MEDS: metroNIDAZOLE 500 MG TAB PO SCH (20:56)
[2020-07-10] MEDS: Promethazine HCl 6.25 MG/5 ML Syrup PER TUBE SCH (20:57)
[2020-07-10] MEDS: Mirtazapine 30 MG TAB PER TUBE SCH (20:58)
[2020-07-11] MEDS: Metoclopramide HCl 10 MG/2 ML VIAL IVP SCH ×5 (00:16→23:49)
[2020-07-11 04:38] LABS: Hemoglobin 9.4 g/dL (14.0-18.0); Mean Corpuscular HGB CONC 33.1 g/dL (32.0-36.0); Mean Corpuscular Hemoglobin 33.2 pg (27.0-31.0); Mean Platelet Volume 7.6 fL (7.4-10.4); Platelet Count 436 thou/uL (130-400); RBC Distribution Width 15.2 % (11.5-14.5); Red Blood Cell (RBC) Count 2.84 mill/uL (4.70-6.10); White Blood Cell (WBC) Count 17.7 thou/uL (4.8-10.8)
[2020-07-11 04:59] LABS: Anion Gap 13 mmol/L (10-20); BUN (Urea Nitrogen) 24 mg/dL (8.4-25.7); Calc. Creatinine Clearance 58 mL/min (70-130); Calcium 8.8 mg/dL (7.8-10.44); Carbon Dioxide 26 mmol/L (23-31); Chloride 111 mmol/L (98-107); Glucose 130 mg/dL (80-115); Potassium 3.9 mmol/L (3.5-5.1); Sodium 146 mmol/L (136-145)
[2020-07-11 05:49] LABS: Band 34 % (5-11); Eosinophils 1 % (0-10); Lymphocytes 4 % (21-51); MDiff Complete? YES; Monocytes 3 % (0-10); Neutrophil 58 % (42-75)
[2020-07-11] MEDS: Potassium Bicarbonate/Cit Ac 20 MEQ TAB PER TUBE SCH ×2 (09:41→17:56)
[2020-07-11] MEDS: Nicotine 7 MG PATCH TOP SCH (09:41)
[2020-07-11] MEDS: Furosemide 40 MG TAB PER TUBE SCH (09:41)
[2020-07-11] MEDS: ALPRAZolam 0.5 MG TAB PER TUBE SCH ×2 (09:41→20:46)
[2020-07-11] MEDS: Cefdinir 125 MG/5 ML Oral Suspension PER TUBE SCH ×2 (09:41→20:46)
[2020-07-11] MEDS: metroNIDAZOLE 500 MG TAB PO SCH ×3 (09:41→20:47)
[2020-07-11] MEDS: Cyclobenzaprine 10 MG TAB PER TUBE SCH ×3 (09:41→20:47)
[2020-07-11] MEDS: Pantoprazole 40 MG GRANULES PACKET PO SCH ×2 (09:41→20:48)
[2020-07-11] MEDS: Tamsulosin HCl 0.4 MG CAP PO SCH ×2 (09:41→20:47)
[2020-07-11] MEDS: Fluticasone Propionate Nasal Spray 16 gm Bottle NASAL SCH ×2 (09:42→21:58)
[2020-07-11] MEDS: Azithromycin 200 MG/5 ML Oral Suspension PER TUBE SCH (09:47)
[2020-07-11] MEDS: HYDROcodone/Acetaminophen 5/325 mg Tablet PER TUBE PRN (15:07)
[2020-07-11] MEDS: HYDROcodone/Acetaminophen 10/325 mg Tablet PO PRN (20:46)
[2020-07-11] MEDS: traZODone HCl 50 MG TAB PER TUBE SCH (20:46)
[2020-07-11] MEDS: Mirtazapine 30 MG TAB PER TUBE SCH (20:48)
[2020-07-11] MEDS: Promethazine HCl 6.25 MG/5 ML Syrup PER TUBE SCH (21:59)
[2020-07-12] MEDS: Metoclopramide HCl 10 MG/2 ML VIAL IVP SCH ×4 (04:56→23:16)
[2020-07-12 06:27] LABS: #Eosinphils 0.2 thou/uL (0.0-0.7); #Lymphocytes 1.2 thou/uL (1.20-3.40); #Monocytes 0.4 thou/uL (0.11-0.59); %Basophils 0.1 % (0.0-1.0); %Eosinophils 1.5 % (0.0-10.0); %Lymphocytes 9.3 % (21.0-51.0); %Monocytes 2.8 % (0.0-10.0); %Neutrophils 86.3 % (42.0-75.0); Hemoglobin 7.6 g/dL (14.0-18.0); Mean Platelet Volume 7.5 fL (7.4-10.4); Platelet Count 389 thou/uL (130-400); RBC Distribution Width 15.3 % (11.5-14.5); Red Blood Cell (RBC) Count 2.45 mill/uL (4.70-6.10); White Blood Cell (WBC) Count 12.7 thou/uL (4.8-10.8)
[2020-07-12 07:48] LABS: Anion Gap 11 mmol/L (10-20); BUN (Urea Nitrogen) 27 mg/dL (8.4-25.7); Calc. Creatinine Clearance 66 mL/min (70-130); Calcium 8.7 mg/dL (7.8-10.44); Carbon Dioxide 27 mmol/L (23-31); Chloride 114 mmol/L (98-107); Glucose 101 mg/dL (80-115); Potassium 4.3 mmol/L (3.5-5.1); Sodium 148 mmol/L (136-145)
[2020-07-12] MEDS: ALPRAZolam 0.5 MG TAB PER TUBE SCH ×2 (09:18→23:17)
[2020-07-12] MEDS: HYDROcodone/Acetaminophen 5/325 mg Tablet PER TUBE PRN (09:19)
[2020-07-12] MEDS: metroNIDAZOLE 500 MG TAB PO SCH ×3 (09:19→19:44)
[2020-07-12] MEDS: Furosemide 40 MG TAB PER TUBE SCH (09:20)
[2020-07-12] MEDS: Pantoprazole 40 MG GRANULES PACKET PO SCH ×2 (09:20→19:44)
[2020-07-12] MEDS: Tamsulosin HCl 0.4 MG CAP PO SCH ×2 (09:20→19:44)
[2020-07-12] MEDS: Potassium Bicarbonate/Cit Ac 20 MEQ TAB PER TUBE SCH ×2 (09:21→19:23)
[2020-07-12] MEDS: Cyclobenzaprine 10 MG TAB PER TUBE SCH ×3 (09:21→19:45)
[2020-07-12] MEDS: Nicotine 7 MG PATCH TOP SCH (09:21)
[2020-07-12] MEDS: Cefdinir 125 MG/5 ML Oral Suspension PER TUBE SCH ×2 (09:22→19:45)
[2020-07-12] MEDS: Azithromycin 200 MG/5 ML Oral Suspension PER TUBE SCH (09:22)
[2020-07-12] MEDS: Fluticasone Propionate Nasal Spray 16 gm Bottle NASAL SCH ×2 (09:22→20:44)
[2020-07-12] MEDS ORDERED: Bisacodyl 10 MG SUPP PR SCH (14:15)
[2020-07-12] MEDS ORDERED: Ondansetron PF 4 MG/2 ML Vial IVP SCH (14:15)
[2020-07-12] MEDS ORDERED: Furosemide 20 MG/2 ML VIAL SLOW IVP SCH (14:15)
[2020-07-12] MEDS: HYDROcodone/Acetaminophen 10/325 mg Tablet PO PRN (19:44)
[2020-07-12] MEDS: traZODone HCl 50 MG TAB PER TUBE SCH (19:44)
[2020-07-12] MEDS: Promethazine HCl 6.25 MG/5 ML Syrup PER TUBE SCH (19:45)
[2020-07-12] MEDS: Mirtazapine 30 MG TAB PER TUBE SCH (19:45)
[2020-07-13] MEDS: HYDROcodone/Acetaminophen 10/325 mg Tablet PO PRN ×4 (03:11→21:34)
[2020-07-13 04:46] LABS: #Eosinphils 0.2 thou/uL (0.0-0.7); #Monocytes 0.6 thou/uL (0.11-0.59); #Neutrophils 10.6 thou/uL (1.40-6.50); %Basophils 0.1 % (0.0-1.0); %Lymphocytes 7.7 % (21.0-51.0); %Monocytes 4.6 % (0.0-10.0); %Neutrophils 85.7 % (42.0-75.0); Hemoglobin 8.7 g/dL (14.0-18.0); Mean Corpuscular HGB CONC 31.8 g/dL (32.0-36.0); Mean Corpuscular Hemoglobin 32.6 pg (27.0-31.0); Mean Platelet Volume 7.7 fL (7.4-10.4); Platelet Count 398 thou/uL (130-400); RBC Distribution Width 15.3 % (11.5-14.5); Red Blood Cell (RBC) Count 2.68 mill/uL (4.70-6.10); White Blood Cell (WBC) Count 12.4 thou/uL (4.8-10.8)
[2020-07-13 05:26] LABS: Anion Gap 15 mmol/L (10-20); BUN (Urea Nitrogen) 23 mg/dL (8.4-25.7); Calc. Creatinine Clearance 66 mL/min (70-130); Calcium 8.7 mg/dL (7.8-10.44); Carbon Dioxide 24 mmol/L (23-31); Chloride 114 mmol/L (98-107); Glucose 97 mg/dL (80-115); Potassium 3.9 mmol/L (3.5-5.1); Sodium 149 mmol/L (136-145)
[2020-07-13] MEDS: Metoclopramide HCl 10 MG/2 ML VIAL IVP SCH ×4 (05:41→23:56)
[2020-07-13] MEDS: Cyclobenzaprine 10 MG TAB PER TUBE SCH ×3 (09:17→21:33)
[2020-07-13] MEDS: metroNIDAZOLE 500 MG TAB PO SCH ×3 (09:17→21:33)
[2020-07-13] MEDS: ALPRAZolam 0.5 MG TAB PER TUBE SCH ×2 (09:17→21:33)
[2020-07-13] MEDS: Pantoprazole 40 MG GRANULES PACKET PO SCH ×2 (09:17→21:34)
[2020-07-13] MEDS: Potassium Bicarbonate/Cit Ac 20 MEQ TAB PER TUBE SCH ×2 (09:17→18:18)
[2020-07-13] MEDS: Furosemide 40 MG TAB PER TUBE SCH (09:17)
[2020-07-13] MEDS: Azithromycin 200 MG/5 ML Oral Suspension PER TUBE SCH (09:17)
[2020-07-13] MEDS: Cefdinir 125 MG/5 ML Oral Suspension PER TUBE SCH ×2 (09:17→21:33)
[2020-07-13] MEDS: Tamsulosin HCl 0.4 MG CAP PO SCH ×2 (09:17→21:34)
[2020-07-13] MEDS: Fluticasone Propionate Nasal Spray 16 gm Bottle NASAL SCH ×2 (09:21→21:33)
[2020-07-13] MEDS: Nicotine 7 MG PATCH TOP SCH (09:23)
[2020-07-13] MEDS: Scopolamine 1.5 mg/72 hour Patch TOP SCH (09:51)
[2020-07-13] MEDS ORDERED: Bisacodyl 10 MG SUPP PR PRN (11:50)
[2020-07-13] MEDS ORDERED: Milk Of Magnesia 30 ML UDCUP PER TUBE SCH (12:00)
[2020-07-13] MEDS: Promethazine HCl 6.25 MG/5 ML Syrup PER TUBE SCH (21:34)
[2020-07-13] MEDS: Mirtazapine 30 MG TAB PER TUBE SCH (21:34)
[2020-07-13] MEDS: traZODone HCl 50 MG TAB PER TUBE SCH (21:34)
[2020-07-14] MEDS: Metoclopramide HCl 10 MG/2 ML VIAL IVP SCH ×3 (05:39→17:27)
[2020-07-14] MEDS: HYDROcodone/Acetaminophen 10/325 mg Tablet PO PRN ×3 (05:42→17:31)
[2020-07-14] MEDS: ALPRAZolam 0.5 MG TAB PER TUBE SCH ×2 (09:48→20:49)
[2020-07-14] MEDS: Furosemide 40 MG TAB PER TUBE SCH (09:48)
[2020-07-14] MEDS: Pantoprazole 40 MG GRANULES PACKET PO SCH ×2 (09:48→20:57)
[2020-07-14] MEDS: Tamsulosin HCl 0.4 MG CAP PO SCH ×2 (09:48→20:57)
[2020-07-14] MEDS: metroNIDAZOLE 500 MG TAB PO SCH ×3 (09:48→20:57)
[2020-07-14] MEDS: Milk Of Magnesia 30 ML UDCUP PER TUBE SCH (09:49)
[2020-07-14] MEDS: Azithromycin 200 MG/5 ML Oral Suspension PER TUBE SCH (09:49)
[2020-07-14] MEDS: Fluticasone Propionate Nasal Spray 16 gm Bottle NASAL SCH ×2 (09:49→20:58)
[2020-07-14] MEDS: Potassium Bicarbonate/Cit Ac 20 MEQ TAB PER TUBE SCH ×2 (09:49→16:28)
[2020-07-14] MEDS: Cefdinir 125 MG/5 ML Oral Suspension PER TUBE SCH ×2 (09:49→20:57)
[2020-07-14] MEDS: Cyclobenzaprine 10 MG TAB PER TUBE SCH ×3 (09:51→20:57)
[2020-07-14] MEDS: Nicotine 7 MG PATCH TOP SCH (09:52)
[2020-07-14] MEDS: HYDROcodone/Acetaminophen 5/325 mg Tablet PER TUBE PRN (11:33)
[2020-07-14] MEDS: Mirtazapine 30 MG TAB PER TUBE SCH (20:57)
[2020-07-14] MEDS: traZODone HCl 50 MG TAB PER TUBE SCH (20:58)
[2020-07-14] MEDS: Promethazine HCl 6.25 MG/5 ML Syrup PER TUBE SCH (20:58)
[2020-07-15] MEDS: Metoclopramide HCl 10 MG/2 ML VIAL IVP SCH ×5 (00:34→23:19)
[2020-07-15] MEDS: HYDROcodone/Acetaminophen 10/325 mg Tablet PO PRN ×4 (03:01→20:38)
[2020-07-15] MEDS: Pantoprazole 40 MG GRANULES PACKET PO SCH ×2 (08:22→20:32)
[2020-07-15] MEDS: metroNIDAZOLE 500 MG TAB PO SCH ×3 (08:22→20:32)
[2020-07-15] MEDS: ALPRAZolam 0.5 MG TAB PER TUBE SCH ×2 (08:22→20:31)
[2020-07-15] MEDS: Potassium Bicarbonate/Cit Ac 20 MEQ TAB PER TUBE SCH ×2 (08:22→16:08)
[2020-07-15] MEDS: Furosemide 40 MG TAB PER TUBE SCH (08:22)
[2020-07-15] MEDS: Cefdinir 125 MG/5 ML Oral Suspension PER TUBE SCH ×2 (08:22→20:32)
[2020-07-15] MEDS: Tamsulosin HCl 0.4 MG CAP PO SCH ×2 (08:22→20:32)
[2020-07-15] MEDS: Azithromycin 200 MG/5 ML Oral Suspension PER TUBE SCH (08:23)
[2020-07-15] MEDS: Milk Of Magnesia 30 ML UDCUP PER TUBE SCH (08:23)
[2020-07-15] MEDS: Cyclobenzaprine 10 MG TAB PER TUBE SCH ×3 (08:23→20:32)
[2020-07-15] MEDS: Fluticasone Propionate Nasal Spray 16 gm Bottle NASAL SCH ×2 (08:24→20:33)
[2020-07-15] MEDS: Nicotine 7 MG PATCH TOP SCH (08:24)
[2020-07-15 13:15] VITALS: BMI 15.8
[2020-07-15] MEDS: Mirtazapine 30 MG TAB PER TUBE SCH (20:32)
[2020-07-15] MEDS: Promethazine HCl 6.25 MG/5 ML Syrup PER TUBE SCH (20:32)
[2020-07-15] MEDS: traZODone HCl 50 MG TAB PER TUBE SCH (20:32)
[2020-07-16] MEDS: Metoclopramide HCl 10 MG/2 ML VIAL IVP SCH ×3 (05:52→19:16)
[2020-07-16] MEDS: ALPRAZolam 0.5 MG TAB PER TUBE SCH ×2 (08:48→20:17)
[2020-07-16] MEDS: Pantoprazole 40 MG GRANULES PACKET PO SCH ×2 (08:48→20:19)
[2020-07-16] MEDS: metroNIDAZOLE 500 MG TAB PO SCH ×3 (08:48→20:14)
[2020-07-16] MEDS: Furosemide 40 MG TAB PER TUBE SCH (08:48)
[2020-07-16] MEDS: Potassium Bicarbonate/Cit Ac 20 MEQ TAB PER TUBE SCH ×2 (08:48→16:06)
[2020-07-16] MEDS: Milk Of Magnesia 30 ML UDCUP PER TUBE SCH (08:48)
[2020-07-16] MEDS: Scopolamine 1.5 mg/72 hour Patch TOP SCH (08:49)
[2020-07-16] MEDS: Cyclobenzaprine 10 MG TAB PER TUBE SCH ×3 (08:49→20:15)
[2020-07-16] MEDS: Tamsulosin HCl 0.4 MG CAP PO SCH ×2 (08:49→20:14)
[2020-07-16] MEDS: Fluticasone Propionate Nasal Spray 16 gm Bottle NASAL SCH ×2 (08:54→20:17)
[2020-07-16] MEDS: Nicotine 7 MG PATCH TOP SCH (10:41)
[2020-07-16] MEDS: Azithromycin 200 MG/5 ML Oral Suspension PER TUBE SCH (10:41)
[2020-07-16] MEDS: Cefdinir 125 MG/5 ML Oral Suspension PER TUBE SCH ×2 (10:42→20:15)
[2020-07-16] MEDS: HYDROcodone/Acetaminophen 10/325 mg Tablet PO PRN ×3 (10:42→20:15)
[2020-07-16] MEDS: traZODone HCl 50 MG TAB PER TUBE SCH (20:14)
[2020-07-16] MEDS: Promethazine HCl 6.25 MG/5 ML Syrup PER TUBE SCH (20:15)
[2020-07-16] MEDS: Mirtazapine 30 MG TAB PER TUBE SCH (20:16)
[2020-07-17] MEDS: Metoclopramide HCl 10 MG/2 ML VIAL IVP SCH ×3 (00:44→12:55)
[2020-07-17] MEDS: Potassium Bicarbonate/Cit Ac 20 MEQ TAB PER TUBE SCH (08:34)
[2020-07-17] MEDS: metroNIDAZOLE 500 MG TAB PO SCH (08:35)
[2020-07-17] MEDS: Nicotine 7 MG PATCH TOP SCH (08:35)
[2020-07-17] MEDS: Tamsulosin HCl 0.4 MG CAP PO SCH (08:35)
[2020-07-17] MEDS: Cyclobenzaprine 10 MG TAB PER TUBE SCH (08:35)
[2020-07-17] MEDS: Furosemide 40 MG TAB PER TUBE SCH (08:35)
[2020-07-17] MEDS: ALPRAZolam 0.5 MG TAB PER TUBE SCH (08:35)
[2020-07-17] MEDS: Milk Of Magnesia 30 ML UDCUP PER TUBE SCH (08:35)
[2020-07-17] MEDS: Pantoprazole 40 MG GRANULES PACKET PO SCH (08:35)
[2020-07-17] MEDS: Cefdinir 125 MG/5 ML Oral Suspension PER TUBE SCH (08:36)
[2020-07-17] MEDS: Azithromycin 200 MG/5 ML Oral Suspension PER TUBE SCH (08:36)
[2020-07-17] MEDS: HYDROcodone/Acetaminophen 10/325 mg Tablet PO PRN ×2 (08:36→13:33)
[2020-07-17] MEDS: Fluticasone Propionate Nasal Spray 16 gm Bottle NASAL SCH (08:36)
[2020-07-17 10:10] VITALS: BP 133/63; TEMP 98.6
== END 2020-07-17 15:30 | disposition home health service (06) | DRG 177 ==
LOC: ERS 18:37 → IMCU/EMU 21:50 → ONC 07-01 22:54
PROVIDERS: ADMIT Specialist; ATTEND Specialist
PROC: 5A09357 Assistance with Respiratory Ventilation, Less than 24 Consecutive Hours, Continuous Positive Airway Pressure (ICD-10-PCS; 2020-06-30)
PROC: 0DHA4UZ Insertion of Feeding Device into Jejunum, Percutaneous Endoscopic Approach (ICD-10-PCS; principal; 2020-07-04)
PROC: 3E0H76Z Introduction of Nutritional Substance into Lower GI, Via Natural or Artificial Opening (ICD-10-PCS; 2020-07-04)
DX: J69.0 Pneumonitis due to inhalation of food and vomit (principal); E43 Unspecified severe protein-calorie malnutrition; J96.01 Acute respiratory failure with hypoxia; E87.1 Hypo-osmolality and hyponatremia; Z68.1 Body mass index [BMI] 19.9 or less, adult; R64 Cachexia; J44.9 Chronic obstructive pulmonary disease, unspecified; F51.04 Psychophysiologic insomnia; I10 Essential (primary) hypertension; F17.210 Nicotine dependence, cigarettes, uncomplicated; K31.84 Gastroparesis; Z20.822 Contact with and (suspected) exposure to COVID-19; K21.00 Gastro-esophageal reflux disease with esophagitis, without bleeding; G89.4 Chronic pain syndrome; F41.1 Generalized anxiety disorder; F32.9 Major depressive disorder, single episode, unspecified; Z98.890 Other specified postprocedural states; Z86.19 Personal history of other infectious and parasitic diseases
CPT/HCPCS: 0240U; 36415; 36416; 71045; 71046; 71275; 80048; 80053; 82271; 82805; 83036; 83605; 84484; 85025; 86850; 86900; 86901; 87040; 93005; 94640; 94660; 94760; 96365; C9113; J0153; J0360; J0456; J0696; J1100; J1940; J2405; J2704; J2765; J3010; J3480; J7050; J7620; Q0169; Q9967; S0020